=== PATIENT | female | born 1960 | race Caucasian/White ===

== ENCOUNTER 2023-05-24 10:00 | Outpatient (OUT) | payer BC, SELFPAY ==
--- NOTE | 2023-05-24 10:08 | ECG_ITS ---
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
--- NOTE | 2023-05-24 10:51 | PM.PRESUREVA ---
History of Present Illness History of Present Illness Chief complaint: PAT visit Narrative: Patient presents for preadmission testing. The patient reports a bunion with right foot pain that started years ago. 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 The patient states she has worn orthotic, anti-inflammatory medications, and modified shoes with no relief in her pain. She does use Voltaren gel occasionally which seems to help. She denies numbness, tingling, weakness, or any other complaints. Review of Systems ROS Narrative REVIEW OF SYSTEMS: Negative except as stated in HPI, ten or more systems reviewed. Constitutional: No fever , chills, weakness ENT: No sore throat or epistaxis Cardiovascular: No edema, chest pain, palpitations, or activity intolerance Respiratory: No shortness of breath, cough, or wheezing Gastrointestinal: No abdominal pain, constipation, diarrhea, or vomiting Genitourinary: No dysuria or hematuria Neurological: No numbness, tingling, weakness, or headache Psychiatric: No mood changes PFSH PFSH Medical History (Updated 05/24/23 @ 10:28 by Ashley Ocasio NP) Surgical History (Updated 05/24/23 @ 10:28 by Ashley Ocasio NP) Family History (Updated 05/24/23 @ 10:28 by Ashley Ocasio NP) Other Family history of breast cancer Family history of colon cancer Family history of hypertension Family history of liver cancer Family history of lung cancer Family history of uterine cancer Social History (Updated 05/24/23 @ 10:24 by Ashley Ocasio NP) Within the past year, how often did you have a drink containing alcohol: never Score interpretation: A score less than 3 is consistent with normal alcohol consumption. Smoking status: Never smoker Non-prescribed substance use: denies use Highest level of school completed/degree received: Associate degree: occupational, technical, vocational program Meds Home Medications and Allergies Home Medications Medication Instructions Recorded Confirmed Type atorvastatin 10 mg tablet 10 mg PO QDAY 05/24/23 05/24/23 History biotin 10,000 mcg capsule mcg PO 05/24/23 History calcium carbonate 600 mg-vitamin 1 tab PO DAILY 05/24/23 05/24/23 History D3 5 mcg (200 unit) tablet (Calcium 600 + D(3)) fluoxetine 20 mg capsule 20 mg PO QDAY 05/24/23 05/24/23 History multivitamin (Daily Multi-Vitamin 1 tab PO DAILY 05/24/23 05/24/23 History tablet) omega-3 fatty acids 1,000 mg 1,000 mg PO DAILY 05/24/23 05/24/23 History capsule omeprazole 40 mg capsule,delayed 40 mg PO QDAY 05/24/23 05/24/23 History release propranolol 60 mg capsule,24 60 mg PO Q24H 05/24/23 05/24/23 History hr,extended release ropinirole 0.5 mg tablet 0.5 mg PO QDAY 05/24/23 05/24/23 History tramadol 50 mg tablet 50 mg PO Q12H PRN pain 05/24/23 05/24/23 History vitamin B complex (B 1 tab PO DAILY 05/24/23 05/24/23 History Complex-Vitamin B12 tablet) Allergies Allergy/AdvReac Type Severity Reaction Status Date / Time No Known Drug Allergies Allergy Verified 05/24/23 10:18 Exam Narrative Exam Narrative: Constitutional: Awake, alert, comfortable, well-appearing, nontoxic, interactive, vital signs as charted Head: Normocephalic, atraumatic Neck: Supple, normal appearance, normal range of motion, no meningeal signs, no lymphadenopathy Respiratory: No respiratory distress, breath sounds clear Cardiovascular: Regular rate and rhythm, strong and regular heart tones Musculoskeletal: Right foot: Tenderness over the 1st MPJ, limited range of motion, good capillary refill, sensation intact Skin: No rashes or induration, no lesions, only visible skin inspected Neuro: No neurological deficits, normal sensation Psychiatric: Oriented ?3, normal affect Assessment and Plan Assessment and Plan (1) Hallux rigidus: Plan Right 1st metatarsophalangeal joint fusion with bone graft as needed scheduled with Dr. Nixon 06/06/2023.
[2023-05-24 11:06] LABS: Basophils Percent Auto 0.7 % (0.2-2.0); Eosinophils Absolute Auto 0.2 10^3/uL (0.0-0.7); Eosinophils Percent Auto 3.7 % (0.9-7.0); Hematocrit 39.2 % (36.0-48.0); Hemoglobin 12.6 g/dL (12.0-16.0); Immature Granulocytes Abs Auto 0.01 10^3/uL (0.00-0.03); Immature Granulocytes Pct Auto 0.2 % (0.0-0.5); Lymphocytes Absolute Auto 0.9 10^3/uL (1.2-3.8); Lymphocytes Percent Auto 15.2 % (20.5-60.0); Mean Corpuscular HGB Conc 32.1 g/dL (29.9-35.2); Mean Corpuscular Hemoglobin 29.7 pg (26.7-34.0); Mean Corpuscular Volume 92.5 fL (81.0-99.0); Mean Platelet Volume 10.5 fL (9.5-13.5); Monocytes Absolute Auto 0.6 10^3/uL (0.3-0.8); Monocytes Percent Auto 10.6 % (1.7-12.0); Neutrophils Percent Auto 69.6 % (43.0-75.0); Platelet Count 167 10^3/uL (150-450); Red Blood Count 4.24 10^6/uL (4.20-5.40); Red Cell Distribution Width 13.4 % (11.0-15.0); White Blood Count 5.7 10^3/uL (4.0-11.0)
[2023-05-24 11:51] LABS: Anion Gap 10.3; BUN Creatinine Ratio 22.2; Calcium 9.2 mg/dL (8.5-10.1); Carbon Dioxide 31.5 mmol/L (21.0-32.0); Chloride 105 mmol/L (98-107); Estimated GFR (African America >60 (>=60); Estimated GFR (Non-African Ame >60 (>=60); Glucose 95 mg/dL (74-106); Potassium 3.8 mmol/L (3.5-5.1); Sodium 143 mmol/L (136-145)
== END 2023-05-24 10:01 | disposition home or self-care (01) ==
LOC: PST 10:04
PROVIDERS: Podiatrist Foot & Ankle Surgery
DX: Z01.810 Encounter for preprocedural cardiovascular examination (principal); Z01.812 Encounter for preprocedural laboratory examination; M20.21 Hallux rigidus, right foot; I10 Essential (primary) hypertension
CPT/HCPCS: 36415; 80048; 85025; 93005; G0463

== ENCOUNTER 2023-06-06 06:17 | Day surgery (SDC) | payer BC, SELFPAY ==
[2023-05-24 10:40] VITALS: BP 109/61; PULSE 67; RESP 14; TEMP 36.4; O2SAT 99; BMI 22.3
[2023-06-06] VITALS (15 sets, daily range): BP systolic 106–131; BP diastolic 52–76; PULSE 56–80; RESP 13–21; TEMP 36.6–36.8; O2SAT 100; BMI 22.0
[2023-06-06 06:29] LABS: Basophils Percent Auto 0.7 % (0.2-2.0); Eosinophils Absolute Auto 0.3 10^3/uL (0.0-0.7); Eosinophils Percent Auto 4.9 % (0.9-7.0); Hematocrit 39.4 % (36.0-48.0); Hemoglobin 12.9 g/dL (12.0-16.0); Immature Granulocytes Abs Auto 0.02 10^3/uL (0.00-0.03); Immature Granulocytes Pct Auto 0.3 % (0.0-0.5); Lymphocytes Absolute Auto 1.1 10^3/uL (1.2-3.8); Lymphocytes Percent Auto 18.8 % (20.5-60.0); Mean Corpuscular HGB Conc 32.7 g/dL (29.9-35.2); Mean Corpuscular Hemoglobin 29.7 pg (26.7-34.0); Mean Corpuscular Volume 90.6 fL (81.0-99.0); Monocytes Absolute Auto 0.6 10^3/uL (0.3-0.8); Monocytes Percent Auto 9.8 % (1.7-12.0); Neutrophils Absolute Auto 3.9 10^3/uL (1.4-6.5); Neutrophils Percent Auto 65.5 % (43.0-75.0); Platelet Count 193 10^3/uL (150-450); Red Blood Count 4.35 10^6/uL (4.20-5.40); Red Cell Distribution Width 13.3 % (11.0-15.0); White Blood Count 5.9 10^3/uL (4.0-11.0)
[2023-06-06 07:06] LABS: Glucometer 99 mg/dL (74-106)
[2023-06-06] MEDS: LACTATED RINGER'S SOLUTION 1,000 ML 50 ML IV (07:08)
[2023-06-06] MEDS: CEFAZOLIN SODIUM/DEXTROSE,ISO 2 GM/50 ML PIGGYBACK IV (07:53)
[2023-06-06] MEDS: THROMBI-GEL SIZE 40 HEMOSTAT 1 EACH TOPICAL (08:51)
--- NOTE | 2023-06-06 09:40 | XR_ITS ---
The [address] [address] Patient Name: JAGDISH SCALES MRN: [id number] date: 1960 Sex: F Assigned Patient Location: [facility] Current Patient Location: [facility] Accession/Order Number: [id number] Exam Date: 06/06/2023 07:45 Report Date: 06/06/2023 11:08 At the request of: ANASTASIA BERMUDEZ Procedure: XR foot RT 2V PROCEDURE: XR foot RT 2V DATE: 06/06/2023 6:45 AM CDT COMPARISONS: 01/02/2023 CLINICAL INDICATION: Intra op imaging for right 1st MPJ fusion FINDINGS: 14 images are obtained during surgery. 1 minute 45 seconds fluoroscopy time. There is placement of a dorsal fixation plate across the first metatarsal phalangeal joint space, fixed by screws. There is also an oblique pin across the first metatarsal phalangeal joint space.. It appears osseous structures are held in good position and alignment is fixation. XR/XR foot RT 2V IMPRESSION: Intraoperative radiographs as discussed above. Electronically authenticated by: ISIAH HERNANDEZ Date: 06/06/2023 11:08
--- NOTE | 2023-06-06 09:41 | XR_ITS ---
The [address] [address] Patient Name: JAGDISH SCALES MRN: [id number] date: 1960 Sex: F Assigned Patient [facility]: [facility] Current Patient Location: [facility] Accession/Order Number: [id number] Exam Date: 06/06/2023 10:10 Report Date: 06/06/2023 13:54 At the request of: LEONARDO TAPIA Procedure: XR foot RT min 3V XR foot RT min 3V, 06/06/2023 10:10 AM EDT, OH001 INDICATION: postop xr PACU COMPARISON: Intraoperative images obtained earlier on the same day. TECHNIQUE: 3 images are submitted. FINDINGS: There is a plaster splint in place along plantar aspect of the foot. Evidence of internal plate and screw fixation across the first metatarsophalangeal joint is again noted. The components appear intact and unchanged in position. The bones appear well mineralized. No acute fracture or subluxation is identified. The joint spaces are maintained. No destructive osseous process is identified. The visualized soft tissues appear unremarkable. XR/XR foot RT min 3V IMPRESSION: Status post internal fixation across the first metatarsophalangeal joint. Electronically authenticated by: SHERLEY ZIMMER Date: 06/06/2023 13:54
--- NOTE | 2023-06-06 10:02 | PM.ORONB ---
Brief Operative Note Date of procedure: 06/06/23 Pre-op diagnosis: right hallux rigidus Post-op diagnosis: same as pre-op Procedure: PROCEDURE(S) PERFORMED: 1. First metarsal phalangeal joint fusion 2. [place] of distal tibial bone graft 3. Application of short leg splint 4. 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 Full-thickness cartilage loss greater than fifty percent on the 1st metatarsal head and full-thickness cartilage loss on the proximal phalanx of approximately thirty percent. Periarticular osteophytes were also noted. Bone quality was somewhat soft consistent with osteopenia. PROCEDURE IN DETAIL: Patient was identified in pre op and consent was reviewed. Correct side and site were identified and marked. Pre-op antibiotics were started. Patient was brought to OR suite and place on table in a supine position. General anesthesia was administered. A tourniquet was applied. Operative extremity was prepped and draped in usual sterile fashion. Formal time-out was performed and the foot/ankle were exsanguinated and tourniquet inflated. Incision created over dorsal aspect of the 1st MPJ. Bleeders coagulated. EHL protected throughout the procedure. Capsulotomy performed and McGlammry elevator inserted into 1st MPJ. Guide Pin place in 1st metatarsal head. Conical reamers used on 1st metatarsal head to remove cartilage and subchondral bone. Guide pin removed. Conical reamers used on proximal phalanx in a similar manner. 2.0 mm drill used to on each side of the joint. The site was irrigated. Distal Tibial Bone Graft: A 2 cm incision was created 2 cm proximal to the ankle joint and just medial to the tibialis anterior tendon. Combination sharp blunt dissection gained access to the distal tibial metaphysis and the periosteum was reflected carefully. An 8 mm bone harvester was drilled into the distal tibial metaphysis and 3cc of cancellus autograft was obtained. Gelfoam was then packed into the harvest site and deep closure with absorbable suture was performed followed by closure with skin suture. the 3cc of autograft obtained was mixed with 1cc of Sparc allograft Bone graft was then packed into the fusion site. A stab incision was placed on the medial aspect of the hallux and blunt dissection down to the proximal phalanx base was performed. A guide wire was then used to pin the MPJ in a rectus position under fluoroscopic guidance. Position was checked both on the table and under fluoroscopy. A saw was used to contour the dorsal aspect of the 1st metatarsal and proximal phalanx to accommodate plate fixation. A 3.[address] was [address] over the fusion site and temporarily fixed. Then ship pilot holes were drilled for locking 3.5 mm screws which were measured and placed according to the manufactor's standard directions. Again position was checked under fluoroscopy as well as on the table. Temporary fixation was removed and additional screws were placed. A 3.5 mm cannulated headed screw was inserted over the previously placed guide wire accordingly. Again position of the great toe and hardware placement were checked on the table and under fluoroscopy. The surgical site was irrigated with copious amounts of sterile saline. The incision was then closed in layers. The tourniquet was deflated and a prompt hyperemic response was noted. A dry sterile dressing consisting of Xeroform on the incisions followed by 4 x 4 gauze, ABDs, and Kerlix were applied. Multiple layers of cast padding were then applied to ensure all bony prominences were well-padded. A plaster posterior splint was then applied which was held in place by Triston wraps. Capillary refill time to all digits was evaluated and had appropriate response. POSTOPERATIVE PLAN: Discharge home under family's care Post op instructions provided verbally and written prescription(s) were placed in chart NWB operative foot/ankle x1 wk Follow-up in 1 week Implants: Medline plate/screws Anesthesia: GETA and regional Surgeon: Jose Nixon Cyber Security Manager: Dar Sorenson Estimated blood loss (mL): 10 Pathology: none sent Condition: stable Disposition: PACU Preoperative Details Reason for procedure: patient is a 63-year-old female who presents my office relating to worsening pain and dysfunction associated with her right great toe. Clinically she had palpable osteophytes and reduced range of motion and x-rays demonstrated end-stage arthritis of the 1st metatarsal phalangeal joint. I recommended 1st metatarsophalangeal joint fusion with bone graft as needed. I discussed all potential risks and benefits and all questions were answered to satisfaction. Patient wished to proceed with surgical intervention
[2023-06-06 10:18] LABS: Glucometer 93 mg/dL (74-106)
== END 2023-06-06 10:52 | disposition home or self-care (01) ==
PROVIDERS: Anesthesiology; Visit Provider Podiatrist Foot & Ankle Surgery
PROC: (CPT 20900; principal; 2023-06-06 07:45)
DX: M20.21 Hallux rigidus, right foot (principal); I10 Essential (primary) hypertension; D64.9 Anemia, unspecified; E78.00 Pure hypercholesterolemia, unspecified; K21.9 Gastro-esophageal reflux disease without esophagitis
CPT/HCPCS: 20900; 28750; 36415; 64445; 73620; 73630; 76000; 76942; 82948; 85025; C1713; J2704

== ENCOUNTER 2023-06-27 15:43 | Outpatient (OUT) | payer BC, SELFPAY ==
--- NOTE | 2023-06-27 | XR_ITS ---
The [place] [id number] Patient Name: JAGDISH SCALES MRN: [id number] date: 1960 Sex: F Assigned Patient Location: [facility] Current Patient Location: [facility] Accession/Order Number: [id number] Exam Date: 06/27/2023 15:10 Report Date: 06/27/2023 16:10 At the request of: ANASTASIA BERMUDEZ Procedure: XR foot RT min 3V STUDY: XR foot RT min 3V, [id number] HISTORY: RIGHT FOOT PAIN COMPARISON: Right foot x-rays of 06/06/2023 and 01/02/2023. FINDINGS/IMPRESSION: Status post first metatarsophalangeal joint arthrodesis. The fusion hardware is intact. Several osseous fragments surrounding the first metatarsophalangeal joint which appear new compared with 01/02/2023. No acute fracture or dislocation. Minimal Achilles insertional enthesopathy. Electronically authenticated by: DEANA MARTIN Date: 06/27/2023 16:10
== END 2023-06-27 15:44 | disposition home or self-care (01) ==
LOC: RAD 15:43
PROVIDERS: Visit Provider Podiatrist Foot & Ankle Surgery
DX: M20.21 Hallux rigidus, right foot (principal); Z98.1 Arthrodesis status; M76.61 Achilles tendinitis, right leg; R00.1 Bradycardia, unspecified
CPT/HCPCS: 73630

== ENCOUNTER 2023-07-18 14:51 | Outpatient (OUT) | payer BC, SELFPAY ==
--- NOTE | 2023-07-18 | XR_ITS ---
The [address] [address] Patient Name: JAGDISH SCALES MRN: [id number] date: 1960 Sex: F Assigned Patient Location: [facility] Current Patient Location: [facility] Accession/Order Number: [id number] Exam Date: 07/18/2023 15:00 Report Date: 07/18/2023 15:37 At the request of: BROOK TERRY Procedure: XR foot RT min 3V XR foot RT min 3V, 07/18/2023 3:00 PM EDT, OH001 INDICATION: FOOT PAIN (RIGHT) COMPARISON: Radiographs from 06/19/2023. TECHNIQUE: 3 images are submitted. FINDINGS: Evidence internal fixation across the first metatarsal phalangeal joint is again noted. The components appear intact and unchanged in position. The bones appear well mineralized. No acute fracture or subluxation is identified. The joint spaces are maintained. No destructive osseous process is identified. The visualized soft tissues appear unremarkable. XR/XR foot RT min 3V IMPRESSION: Stable status post fusion across the first metatarsophalangeal joint. No acute fracture or component failure is seen. Electronically authenticated by: SHERLEY ZIMMER Date: 07/18/2023 15:37
== END 2023-07-18 14:52 | disposition home or self-care (01) ==
LOC: RAD 14:52
PROVIDERS: Visit Provider Physician Assistant
DX: M20.21 Hallux rigidus, right foot (principal); Z96.9 Presence of functional implant, unspecified
CPT/HCPCS: 73630

== ENCOUNTER 2023-08-28 14:40 | Outpatient (OUT) | payer BC, SELFPAY ==
--- NOTE | 2023-08-28 | XR_ITS ---
The [address] [address] Patient Name: JAGDISH SCALES MRN: [id number] date: 1960 Sex: F Assigned Patient Location: [facility] Current Patient Location: [facility] Accession/Order Number: [id number] Exam Date: 08/28/2023 16:03 Report Date: 08/28/2023 20:50 At the request of: ANASTASIA BERMUDEZ Procedure: XR foot RT min 3V EXAM: XR foot RT min 3V HISTORY: RIGHT FOOT PAIN COMPARISON: 07/18/2023 TECHNIQUE: 3 views of the right foot were obtained FINDINGS: Again seen is evidence of prior surgery with a fusion procedure at the first metatarsophalangeal joint. A dorsal plate and multiple screws are in place. There is narrowing of the joint space, which remains visible. There is no evidence of an acute fracture or dislocation. The joint space are otherwise intact throughout the foot. A small osteophyte arises from the insertion site of the Achilles tendon. XR/XR foot RT min 3V IMPRESSION: Postsurgical changes in place with a fusion procedure at the first metatarsophalangeal joint. Hardware remains in place and is unchanged. There is been no significant progression of the osseous fusion since the prior study. There is no evidence of an acute fracture or dislocation. The overall appearance is unchanged. Electronically authenticated by: ANASTASIA LOERA Date: 08/28/2023 20:50
== END 2023-08-28 14:41 | disposition home or self-care (01) ==
LOC: RAD 14:40
PROVIDERS: Visit Provider Podiatrist Foot & Ankle Surgery
DX: M20.21 Hallux rigidus, right foot (principal)
CPT/HCPCS: 73630

== ENCOUNTER 2023-09-17 14:53 | Outpatient (OUT) | payer BC, SELFPAY ==
--- NOTE | 2023-09-17 | XR_ITS ---
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 There is a lucent defect of the distal metadiaphyseal region of the tibia involving an area measuring approximately 1 cm in caliber. This was also seen on foot radiographs of 06/06/2023. Its appears to be postsurgical. It does not have an acute appearance and is likely of no clinical significance. The ankle mortise is intact. XR/XR ankle RT min 3V IMPRESSION: Right ankle radiographs show no evidence of acute or significant abnormalities. Electronically authenticated by: ISIAH HERNANDEZ Date: 09/18/2023 09:07
--- NOTE | 2023-09-17 | XR_ITS ---
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 Fusion hardware is again identified first metatarsal phalangeal joint. The hardware appears intact. The osseous structures remain in good alignment and stable alignment. Mild midfoot tarsal metatarsal degenerative changes are identified, stable. XR/XR foot RT min 3V IMPRESSION: Right foot radiographs show no evidence of acute abnormalities. Stable postop changes. Electronically authenticated by: ISIAH HERNANDEZ Date: 09/18/2023 09:05
== END 2023-09-17 14:54 | disposition home or self-care (01) ==
LOC: RAD 14:53
PROVIDERS: Visit Provider Podiatrist Foot & Ankle Surgery
DX: M20.21 Hallux rigidus, right foot (principal); M25.571 Pain in right ankle and joints of right foot
CPT/HCPCS: 73610; 73630

== ENCOUNTER 2023-10-23 13:10 | Outpatient (OUT) | payer BC, SELFPAY ==
--- NOTE | 2023-10-23 | XR_ITS ---
The [address] [address] Patient Name: JAGDISH SCALES MRN: [id number] date: 1960 Sex: F Assigned Patient Location: [facility] Current Patient Location: [facility] Accession/Order Number: [id number] Exam Date: 10/23/2023 13:11 Report Date: 10/23/2023 13:47 At the request of: ANASTASIA BERMUDEZ Procedure: XR foot RT min 3V PROCEDURE: XR foot RT min 3V COMPARISON: 09/17/2023 HISTORY: RIGHT FOOT PAIN FINDINGS: BONES:Stable dorsal fusion first metatarsal-phalangeal joint with a plate and screws. No acute fracture, dislocation or mechanical failure. SOFT TISSUES:Negative. No visible soft tissue swelling. EFFUSION:None visible. OTHER: Negative. XR/XR foot RT min 3V IMPRESSION: Stable first metatarsal-phalangeal joint fusion Electronically authenticated by: NISHA VANESSA Date: 10/23/2023 13:47
--- OUTSIDE RECORDS SUMMARY | 2023-10-23 13:13 | XMS_ITS | CCD ---
Author Name Unknown Address [address] [place] [address] [facility] Care Team Providers Care Music Librarian Name Role Phone Giovanni Mejia Unavailable Lina Bustillo Unavailable Roberto, Giovanni Unavailable Nathaniel Azevedo Unavailable Roberto, DO Giovanni Martinez Primary Care Provider [phone] Roberto, DO Giovanni N Attending Provider Roberto, DO Giovanni N Primary Care Provider MD Ramirez Bassett Attending Provider ANASTASIA BERMUDEZ Admitting Unavailable ANASTASIA BERMUDEZ Attending Unavailable ANASTASIA BERMUDEZ Admitting Unavailable ANASTASIA BERMUDEZ Attending Unavailable ANASTASIA BERMUDEZ Admitting Unavailable SASSER, DR NISHA Keane Consulting Unavailable ANASTASIA BERMUDEZ Attending Unavailable ANASTASIA BERMUDEZ Consulting Unavailable Roberto, DO Giovanni N Primary Care Provider [phone] Roberto, DO Giovanni N Attending Provider Roberto, DO Giovanni N Primary Care Provider [phone] Roberto, DO Giovanni N Attending Provider Roberto, Giovanni N Admitting Unavailable Roberto, Giovanni N Attending Unavailable Roberto, Giovanni N Primary Care Unavailable Roberto, Giovanni N Admitting Unavailable Roberto, Giovanni N Attending Unavailable Roberto, Giovanni N Primary Care Unavailable Ramirez Bassett Attending Unavailable Ramirez Bassett Admitting Unavailable Maryan Rivera Admitting Unavailable Maryan Rivera Attending Unavailable Giovanni Mejia Primary Care Unavailable Allergies Allergy Classification Reported Allergen(s) Allergy Type Date of Onset Reaction(s) Facility (1 source) No Known Medication Allergies; Translations: [No Known Medication Allergies] Propensity to adverse reactions to drug (disorder) [facility] Repository Medications Current Medications Medication Drug Class(es) Dates Sig (Normalized) Sig (Original) aluminum chloride 200 mg/ml topical solution (20 sources) Drysol 20 % 1 application Externally weekly for 90 day(s) Active Drysol 20 % 1 ap plication Externally weekly for 90 day(s) Active atorvastatin 10 mg oral tablet (20 sources) HMG-CoA Reductase Inhibitor Start: 07-11-2020 take 1 tablet by mouth once daily in the morning Atorvastatin (Lipitor) 10 mg tablet Active 10 MG PO Every morning July 10, 2020 11:00pm biotin 10 mg oral capsule (4 sources) Start: 07-11-2020 take 60805 ug by mouth twice daily Biotin Active 58836 MCG PO Twice daily July 10, 2020 11:00pm cholecalciferol 0.05 mg oral tablet (4 sources) Vitamin D Start: 07-11-2020 take 1 tablet by mouth once daily Cholecalciferol (Vitamin D3) (Vitamin D3) 50 mcg (2,000 unit) Tablet Active 50 MCG PO Daily July 10, 2020 11:00pm FLUoxetine 20 mg oral capsule (20 sources) Serotonin Reuptake Inhibitor Start: 07-11-2020 take 20 mg by mouth once daily in the morning Fluoxetine Active 20 MG PO Every morning July 10, 2020 11:00pm take 1 capsule by mouth once guillermo ly FLUoxetine HCl 20 MG take 1 capsule by mouth once daily for 90 Active Multivitamin preparation (4 sources) Start: 07-11-2020 take 1 tablet by mouth once daily Multivitamin Active 1 TAB PO Daily July 10, 2020 11:00pm Start: 07-11-2020 take 1 tablet by kurt th once daily Multivitamin Active 1 TAB PO Daily July 11, 2020 12:00am nitrofurantoin, macrocrystals 25 mg / nitrofurantoin, monohydrate 75 mg oral capsule (2 sources) Nitrofuran Antibacterial Start: 09-12-2023 take 1 capsule by mouth every twelve hours Nitrofurantoin Monohyd Macro 100 MG 1 capsule with food Orally every 12 hrs for 5 days 14 Aug, 2023 Active omeprazole 40 mg delayed release oral capsule (20 sources) Proton Pump Inhibitor Start: 07-11-2020 take 40 mg by mouth once daily Omeprazole Active 40 MG PO Daily July 10, 2020 11:00pm 24 hr propranolol hydrochloride 60 mg extended release oral capsule (20 sources) beta-Adrenergic Thierno Start: 07-11-2020 take 60 mg by mouth at bedtime Propranolol Active 60 MG PO Bedtime July 10, 2020 11:00pm rOPINIRole 1 mg oral tablet (20 sources) Nonergot Dopamine Agonist Start: 07-11-2020 take 1 mg by mouth once daily at bedtime Ropinirole Active 1 MG PO Daily at bedtime July 10, 2020 11:00pm take 1 tablet by mouth once wilton y rOPINIRole HCl 0.5 MG take 1 tablet by mouth once daily for 90 Active sulfamethoxazole 800 mg / trimethoprim 160 mg oral tablet (1 source) Dihydrofolate Reductase Inhibitor Antibacterial, Sulfonamide Antimicrobial Start: 09-16-2023 take 1 tablet by mouth every twelve hours Sulfamethoxazole-Trimethoprim 800-160 MG 1 tablet Orally Twice a day for 5 days Aug, Active traMADol hydrochloride 50 mg oral tablet (20 sources) Opioid Agonist Start: 11-06-2022 take 1 tablet by mouth once daily as needed traMADol HCl 50 MG 1 tablet as needed for migraines Oral Once a day PRN migraines for 15 day(s) PRN Jun, Active Start: 05-24-2022 take 1 tablet by kurt th once daily as needed traMADol HCl 50 MG 1 tablet as needed for migraines Oral Once a day PRN migraines for 15 day(s) PRN Apr, Active Start: 08-04-2021 take 1 tablet by kurt th once daily as needed traMADol HCl 50 MG 1 tablet as needed for migraines Oral Once a day PRN migraines for 15 day(s) PRN Jul, Active Start: 07-11-2020 End: 07-18-2020 take 50 mg by mouth once daily Tramadol Discontinued 5 0 MG PO Daily July 10, 2020 11:00pm July 18, 2020 7:06am Completed/Discontinued Medications Medication Drug Class(es) Dates Sig (Normalized) Sig (Original) cephalexin 500 mg oral capsule (4 sources) Cephalosporin Antibacterial Start: 07-18-2020 End: 12-31-2022 take 1 capsule by mouth every eight hours Cephalexin (Keflex) 500 mg capsule Discontinued 500 MG PO Q8H 15 July 17, 2020 11:00pm December 31, 2022 7:15am diclofenac sodium 20 mg/ml topical solution (20 sources) Nonsteroidal Anti-inflammatory Drug Start: 09-01-2021 Pennsaid 2 % 2 pumps Externally Twice a day for 30 day(s) Aug, Not-Taking Start: 09-01-2021 Pennsaid 2 % p ea-sized amount Externally Twice a day Aug, Active Magnesium (4 sources) Start: 07-11-2020 End: 12-31-2022 take 250 mg by mouth once daily Magnesium Discontinued 250 MG PO Daily July 10, 2020 11:00pm December 31, 2022 7:16am Start: 07-11-2020 End: 12-31-2022 take 250 mg by mouth once daily Magnesium Discontinued 250 MG PO Daily July 11, 2020 12:00am December 31, 2022 8:16am Start: 07-11-2020 take 250 mg by mouth once daily Magnesium Active 250 MG PO Daily July 11, 2020 12:00am oxyCODONE hydrochloride 5 mg oral capsule (4 sources) Opioid Agonist Start: 07-18-2020 End: 12-31-2022 take 5-10 mg by mouth every six hours Oxycodone Discontinued 5 - 10 MG PO Q6H 40 8 July 18, 2020 December 31, 2022 7:16am triamcinolone acetonide 40 mg/ml injectable suspension (20 sources) Corticosteroid Start: 02-21-2022 Kenalog-40 Apr, 20 mg Start: 11-29-2020 Kenalog -40 mg Nov, 40 mg Problems Problem Classification Problem Date Documented Da te Episodic/Chronic Anxiety disorders (20 sources) Anxiety; Translations: [Anxiety disorder, unspecified] Chronic Disorders of lipid metabolism (20 sources) Mixed hyperlipidemia; Translations: [Mixed hyperlipidemia] Onset: 09-01-2021 Resolved: 09-01-2021 Chronic Gastroduodenal ulcer (except hemorrhage) (20 sources) Ulcer of duodenum; Translations: [Duodenal ulcer, unspecified as acute or chronic, without hemorrhage or perforation] Onset: 09-01-2021 Resolved: 12-03-2021 Chronic Gastrointestinal hemorrhage (20 sources) Chronic duodenal ulcer with hemorrhage; Translations: [Chronic or unspecified duodenal ulcer with hemorrhage] Chronic Genitourinary symptoms and ill-defined conditions (4 sources) Dysuria; Translations: [Other symptoms and signs involving the genitourinary system] Onset: 09-12-2023 Episodic Headache; including migraine (20 sources) Migraine without aura, not refractory ; Translations: [Migraine without aura, not intractable, without status migrainosus] Onset: 08-03-2021 Resolved: 05-24-2022 Chronic Osteoarthritis (20 sources) Primary osteoarthritis, unspecified ankle and foot; Translations: [Osteoarthrosis of the carpometacarpal joint of the thumb] Onset: 09-01-2021 Resolved: 03-30-2022 Chronic Other aftercare (5 sources) Encounter for therapeutic drug level monitoring; Translations: [Encounter for therapeutic drug level monitoring] Onset: 09-01-2021 Resolved: 09-01-2021 Episodic Other connective tissue disease (4 sources) Trigger finger, right ring finger Onset: 02-21-2022 Resolved: 03-30-2022 Episodic Other connective tissue disease (4 sources) Trigger finger, left middle finger Onset: 02-21-2022 Resolved: 03-30-2022 Episodic Other connective tissue disease (1 source) Other specified disorders of muscle Episodic Other connective tissue disease (4 sources) Pain in right foot; Translations: [PAIN IN RIGHT FOOT] Onset: 01-02-2023 Episodic Other hereditary and degenerative nervous system conditions (20 sources) Restless legs; Translations: [Restless legs syndrome] Chronic Other hereditary and degenerative nervous system conditions (5 sources) Restless legs syndrome Onset: 10-16-2021 Resolved: 04-05-2022 Chronic Other nervous system disorders (20 sources) Carpal tunnel syndrome of right wrist; Translations: [Carpal tunnel syndrome, right upper limb] Chronic Other nervous system disorders (20 sources) Carpal tunnel syndrome; Translations: [Carpal tunnel syndrome, left upper limb] 11-04-2020 Chronic Other nervous system disorders (4 sources) Carpal tunnel syndrome, left upper limb Onset: 02-21-2022 Resolved: 03-30-2022 Chronic Other nervous system disorders (1 source) Lesion of sciatic nerve, right lower limb Chronic Sprains and strains (1 source) Sprain of other ligament of left ankle, initial encounter Episodic Unclassified (1 source) Encounter for screening for malignant neoplasm of colon; Translations: [Encounter for screening for malignant neoplasm of colon] Onset: 12-31-2022 Results Test Name Value Interpretation Reference Range Facility Coding Summaryon 10-07-2023 Coding Summary HTMLBase 64 NudjqxfvQBx1zBb+PGhlY WQ+AJ1JYFRcG45usOGfjQ 4vP9GJXNrDPletYSDCJLf FRyLeavKmCM8luIGtTHEt IC8+DM8qAKLgKvighREoi 2I2iCX7E84yhx3zLNaizM V2IGHqHbPnnrulg7fodYz 6IDcuNmluOyBt ROPqoF41ZUX5sU03Jy42b IByuHZum9upzAb6JiHbHP VmHTZ3xKfnLLiqx9TpOQV vP96jkEAri1W8 TZLjoEbecEUbYyNjgHG8s G4xBHyyhnslh8humikvSb y1ou33yXTdp1A1dOM9K5A osvL8OGHplHTd BibuaFJEfC1iixape7jse dmeWuApTDKhBSm9PDi6HZ HwkInnHpJvCH54IBD9JRT mylYfQ6MzPSYl aCzxWdT3i6V0Ec1ZT8SGT ftuG1GWXXLKPBuxvUK+PC 30ql43G2JzTapeTep9HQI oWEQ5qRD7qH8c MRAqYGudv3J4uDU6B7Xjb cIiyw9dj7jnGOJiQRldV3 6wgUBfz6Y7VUDxxFG5OPQ niCxlAzVwjW92 Oyc+MYRonGhyw6UiEezwl 4flq1jkcBk3YsknWPRryq WtnGhzCFX7s5DnVy2xEYV vjYC0qHD9xE1k ZiVxFqU1YFjbS325CjIcu GQlOhbuI57uZ5EnmSC+PH DzDgx3CILviQxkWS9iX1W hZGRpbmctbGVm pXkkIJ6eZIChycbfDFVrx X4dPRByW2g1FpWgOzK7UG hlN9QcKWYufwjzTt73oC4 eMcIfNvZ8JNkd L3GamfQ5QXScwIEdSViwW PE5I86oo8N1WGIjJJYvVI I8hET5oR0jxWnrnzhkzGP mdDsgdmVydGlj KYntOLdqW861LBZzfSmuP kNvZGluZyBEYXRlOiAgMD EvMDgvMjAyNDwvdGQ+PHR lDAF2dXamTUZa pBIvOYsyYj9ocCnxhFpcI U5aFRQtiycfQMBbnI8uSS OdvMShoSvvHO8nKMYvthh ld191AyBcZEA9 FFZejFBdI3IaxV2qTrEwW IPjPGRzG3JorYSoIWldL3 12SEbpFhU9PJPaikTtI0K sLWFsaWduOiB0 u3K6Ok5Il4MoqxwfK2Dvg SQfJbMgXhzzOHh2Y3OuNz wvdHI+QL64IHQnIC24WVe 8JRL9cWksKGbh EHLnH4SmfI0eJmBcPZAvX GRkOyc+PHRhYmxlIHdpZH RoPScxMDAlJyBzdHlsZT0 xWc3rNSQlAWVk zLiukMKeQzSmv1gcPUTyJ AosJJ4akCsjJ5LraKK3LB Swn3g4Lt37H05eT3WlzAF +QACblUY6wCS0 pL9nZnKjOvJ4JHqkR031C vCqaUFmHbtdj1wzw9zjdQ s1SmR5HXOceeQpePakUHQ 0q5IyAl28U18m IHdpZHRoPSIxNSUiIHZhb Chcfx0yxI8gEw6+PGNvbC S6lUW5gL5pWoEtVzA5UZo lO909DzKlcFIk Xnblo2wqs3icxOh3PpXgT OAsfbUxoRsnMFC8s1HoPk 00T4FljGlzb8LhEnh7yo4 7lQHop5A2xIE1 D2PuPRQeyenbcBVdvUqeT C6mTYAgyziuTWYlbV9wRF FjB9w7FiTsYgD1SStmD9X xopA6OIWmrVZc FAEhsZUFpB2jevjkk1qlg lqfFiUzBXQsRVo2RRn8PF VbhKfkJcPhMAL0BeY8OEH 3iGDejJ2wrRfq dvjziW3lGop+XWI0uQQdz HYYPW3tSnqkmOK+PHRkIH Y6wVevMOemUUTcuX3mBGR pS9k8JwJjZwW1 AIezG6VpiiK5FWNotTDqY KYypUCDjS7krlyex0whrl psYbQzGXEwYQv0RAb2QBK saWduOiBsZWZ0 PxQ7HZN9rSBtlS9udLkbk byppS9nGtj+QmlydGggRG M6FOd6U8HvSqr8FIZwiHr eQR7ieUIbCClu Ro0jcAvxvIekBP5iRVGpk dsxk860LeAoz4scZEZpkL KaTRslOZL5P04wm6T3VPW pCYHjDPA1rXM7 tX6keJilcpwesETjwRhle pCakVwwIIgsNMgjQ307UP NaxAgxOyXkNNe1V1EoYpx 7ZSIchCtgTA3f ePFyYKmuHf7oqPwymMmsV P8rVVImaxwiw669JzPbn1 wvWLDeeZVeUMakZPG3M12 zx0T8UCFvSHQe JHY2sAH5iB0rkLsbuvrnv GVmdDsgdmVydGljYWwtYW bbI700RVYuoWybTlVnyOv 1M4UdVco9SNNd zRozKS2dlIAeFSweVh4xr AbolVgvCA4hOSDnduqxs3 49RyLrh9wqQLOyhUYiSOx eENR4B26ig9Q7 HCDeAOTuETH1pPG4yU3mv GlnbjogbGVmdDsgdmVydG ubFUdsXUiuJ782TQWsaWk nPlBhdGllbnQg SWfyIYu1X9OqEcdbxZL+P R11IRMpAJ81eYGycEHvt9 smpXv5OgUcHXFlOVN9xLk kAEtzd0GsJHYe W51fnRWja4T0HATzzNcpm KLzUoKpqMO1hU3rWGdesu zwn4rgqpabEuybi8atsk1 2gY10I84jKYrv ZHRoPSIzMCUiIHZhbGlnb k2ihH1bZq5+GJWqgWB0dK I1mH7qQNXtRzU0TIkqK14 9InRvcCIvPjxj f3chy0vlqKt4WpY6WOWsw cAzaKneRUA9d2SsZr73L3 9sIHdpZHRoPSIyMCUiIHZ foRumki4eaD1a Ii8+YKKgvTZ1mJG2wZ7oW eViNdX0CLfaE535DcIqiE NbYagjZ20lB3PnpEA+PHR pDyp7QVJsfTpa VV2dyKGeLCsgFv6yKTJ5K lNkCcXzPRcjM6DaZKGcff fijgjubVU8DMJxNEBuzN9 3Ng6gjRqgYECb bVVSeT2zyavfz3ftbttkW sXgABWfNQc3VKa9PPKmyL mlDyWoZFJ5LeM3URX1ePS kjK8xlIbgeouf kA1mE0RbENEhpaacWw47d T4cDqPnRgS9OHmbPsu+UE QDHX5TAMIBPUBBHN0HFTC UYfUZPM71HD71 uQCgr0P5jGZ8P6HsDBIsr mmohmbobJK9UAXzPDQblQ 64cTYaBZqaQi3ss2C0a34 5DHYvRKLpuZ10 Jm5vyGevFXSlmPMRdQ6it mrmg8suolumIgCnHKJdAE n5ANj2KGPgsZwvLnTuYTJ 2SqM8ALV0mIGf sW8uqFwpaomyeL9oJwz+M IrtFAWvGEk7UnbnrBJ+PH WoSFB7oKolEVorVHSypW7 qFOAnO4x9LoBt JeI2UQdyC2RhXGXfjxauH y67hJ1fJgOiNiB9OMzgO0 NnanM6PTTbnECtCSdsJLU 1O43te1R1XSMv CMOzELG4qMM0jL1etSgmi jogbGVmdDsgdmVydGljYW zdGLldJ759MVOhhHysUwA xJPmuIFEbKF42 HA82iZItf9R5xYP6L1BhJ BDtwmyctnfvnRQ3CZDsZV HecM52kCCpXMucLz7dh3D 9m049AARiGNHz tI06Sp0nuCsbUHIpjNTEz N7fgnfzx5zetmvcZeJyRV ObNOu2WVo7ITWriJhrDoQ sGVZ8ClA3ZJK5 uCPnmL7uiHtkfmuzjH9cX yc+XxWIYVcGDI31PA26hA Fnh3C0eDN5U7FmYOCplov ochgpzMG2HQUc LTZetK14rQWvSOecIs6sn 3U9z642FJPsKAEzqC61Fp 8ivDxlTQZwpRXMtC1hace cm4pfajafUySb DBScBSq3HDt2LUBvlXhqF tOzCCO0OhN6IJH4eTBntG 3jfAieydtktG0sRdu+UmV moPXayV7vHG31 jLUoxAacvvP2U5MgGhxlm HI+DC07QFNsWK81xFUgsJ Vtz9sgtBc3NeYvSTTtWCC 7vFsmRTdxt3Ui TTUqL99xvUSdb6I1HQSnm DcnnQMwUiTzwDC2dC5lKD igotppk0fszpikPxwdh4v bwd14wC73O16m IHdpZHRoPSIzMCUiIHZhb Uegoh1flR0dDw7+PGNvbC S8nCW4gF5sByOhNbP6CIe dX839JbEjiFNw Zkter4ltv1hnzEw9GqAeY CGdluSoeXyqYDO4d7LwVt 13K06fRYahIAKbPFRdQNH aJFFjhFivda0a nM7oZo7+HF0dw7oxir98y D48dHI+OQPhFUE4bJmaZP sePVOxnY0aLMtfZqC2MBN oXqRhgR45zARa UTjdSv4plRlmqQspNN4rO VSkljnfe317SlTis0seTS ByyCQrYGmcAYY6Z77ct9U 6LGDrNXOrPNS5 nDK2wA1wnVhxrissxTLkx DsgdmVydGljYWwtYWxpZ2 24JIWsyJncRuPrjAMaF7f fmvCNME6yFnvj dGQ+PBRxNCU0gCvfOSclR DKnkJ3xFNDzF5q7TbIjAo E6IOjzY4XkhsQ2PZOuzTI hLTUffALJqL5a dzirl3znarnwNcQtTPCuF Qe6YLr0HYNalBmxKiVmVX X4ZpO4IHC7hQHlcT0mwUf lvfljzY1rDfg+ RklOOjwvdGQ+BGXrJDW9o EskSCpxRVUojS6iKQToJ5 q3GjQwPqG6FVhnE6YwjjU 6IGJvbGQgMTBw hOINgJ7dhxnrc6iyiegpH dZcMWOeFFu5UIw5TFIbzO ywSvSrOBU9UhQ2PUG7tMR syQ2mqOiabegw sN9zKta+TVJOOjwvdGQ+P NGaAVQ1eCaqOFzqKLXheN 1mYHFyR8b7YvGjMpG2VXa sD6MvdnA1NAJo yLZhCLCfnZQPcA1rosvqz 2skdcqbLuOpCVIsDTs3WR z4LFTtnLffUpDeROO2UtP 4PZM7eFTolF3k jZmojydlqK3dGzp+UGF5Z HZ8IW53PQ14Q7HyLwpmdV FibGU+PHRhYmxlIHdpZHR oPScxMDAlJyBz dHl (more content not included)... [facility] Provider Orderson 09-19-2023 Provider Orders [id number] #[email or web address] [facility] Provider Orders [id number] #[email or web address] [facility] Urinalysis - AUTOMATEDon Appearance (U) cloudy [employer] Other Bilirubin Ql (U) Negative [employer] Other Color (U) yellow [employer] Other Glucose Ql (U) Negative [employer] Other Hemoglobin Ql (U) trace [employer] Other Ketones Ql (U) Negative [employer] Other Leukocyte esterase Test strip Ql (U) moderate [employer] Other Nitrite Ql (U) Negative [employer] Other pH (U) 6.0 [pH] [employer] Other Protein Ql (U) 100 mg/dl [employer] Other Specific gravity (U) [Rel density] 1.025 [employer] Other Urobilinogen (U) [Mass/Vol] 1.0 mg/dL [facility] [employer] Other Urinalysis - AUTOMATED No rt [employer] Other Urine Cultureon 09-12-2023 Bacteria identified Cx Nom (U) Reason for Exam Dysuria Urine ORGANISM: Klebsiella pneumoniae (O:KLEPNE) [place] Count >100,000 Aerobic MAHIN Charge (NMIC56) ---- SUSCEPTIBILITY --- ORGANISM: O:KLEPNE ANTIBIOTIC INTERPRETATION MAHIN Amikacin S <16 Amoxacillin/K Clavulanate S <8 Ampicillin/Sulbactam S <4 Aztreonam S <4 Cefazolin S <2 Cefepime S <2 Ceftazidime S <1 Ceftazidime/Avibactam S <4 Ceftolozane/Tazobacta m S <2 Ceftriaxone S <1 Cefuroxime S 8 Ciprofloxacin S <0.25 Ertapenem S <0.5 Gentamicin S <2 Levofloxacin S <0.5 Meropenem S <1 Meropenem/Vaborbactam S <2 Nitrofurantoin I 64 Piperacillin/Tazobact am S <8 Tetracycline S <4 Tigecycline S <2 Tobramycin S <2 Trimethoprim/Sulfamet hoxazole S <0.5 S = SUSCEPTIBLE I = INTERMEDIATE R = RESISTANT BLANK = DATA NOT AVAILABLE, OR DRUG NOT ADVISABLE OR TESTED R* = RESISTANCE DUE TO EXTENDED SPECTRUM BETA-LACTAMASES ESBL = EXTENDED SPECTRUM BETA-LACTAMASE TFG = THYMIDINE-DEPENDENT STRAIN JIAN = BETA-LACTAMASE POSITIVE IB = INDUCIBLE BETA-LACTAMASE. APPEARS IN PLACE OF 'S' WITH SPECIES KNOWN TO POSSESS INDUCIBLE BETA-LACTAMASES. POTENTIALLY THEY MAY BECOME RESISTANT TO ALL B-LACTAM DRUGS. PERFORMED BY: [place] [address] PATHOLOGIST WOOD REPATCHER MANISH SIDHU M.D. Normal Comment on above: Performed By: #### C UU #### [address] Alanine aminotransferase [En zymatic activity/volume] in Serum or PlasmaOrdered By: Giovanni Mejia on 07-19-2023 ALT [Catalytic activity/Vol] 22 U/L 7-52 Albumin [Mass/volume] in Ser um or Plasma by Bromocresol green (BCG) dye binding methoOrdered By: Giovanni Mejia on 07-19-2023 Albumin BCG dye [Mass/Vol] 4.1 g/dL 3.5-5.7 Alkaline phosphatase [Enzyma tic activity/volume] in Serum or PlasmaOrdered By: Giovanni Mejia on 07-19-2023 ALP [Catalytic activity/Vol] 192 U/L 34-104 Aspartate aminotransferase [ Enzymatic activity/volume] in Serum or PlasmaOrdered By: Giovanni Mejia on 07-19-2023 AST [Catalytic activity/Vol] 26 U/L 13-39 Basophils Auto (Bld) [#/Vol] Ordered By: Giovanni Mejia on 07-19-2023 Basophils (Bld) [#/Vol] 0.0 10*3/uL 0.0-0.2 Basophils/100 WBC Auto (Bld) Ordered By: Giovanni Mejia on 07-19-2023 Basophils/100 WBC (Bld) 0.7 % . F [facility] Bilirubin.total [Mass/volume ] in Serum or PlasmaOrdered By: Giovanni Mejia on 07-19-2023 Bilirubin [Mass/Vol] 0.7 mg/dL 0.3-1.0 [facility] Calcium [Mass/volume] in Ser um or PlasmaOrdered By: Giovanni Mejia on 07-19-2023 Calcium [Mass/Vol] 9.8 mg/dL 8.6-10.3 [facility] Carbon dioxide, total [Moles /volume] in Serum or PlasmaOrdered By: Giovanni Mejia on 07-19-2023 CO2 [Moles/Vol] 32.5 mmol/L 21.0-31.0 [facility] Chloride [Moles/volume] in S jeremy or PlasmaOrdered By: Giovanni Mejia on 07-19-2023 Chloride [Moles/Vol] 104 mmol/L 98-107 [facility] Cholesterol [Mass/volume] in Serum or PlasmaOrdered By: Giovanni Mejia on 07-19-2023 Cholesterol [Mass/Vol] 169 mg/dL 140-200 [facility] Comment on above: Chol less than 200 m g/dl low riskChol 201-239 mg/dl borderline riskChol 240 mg/dl and greater high risk Cholesterol in LDL Calc [Mas s/Vol]Ordered By: Giovanni Mejia on 07-19-2023 Cholesterol in LDL [Mass/Vol] 89 mg/dL 0-100 Comment on above: LDL ATP III CLASSIFI CATIONLDL less than 100 mg/dL OptimalLDL 100-129 mg/dL Near or above optimalLDL 130-159 mg/dL Borderline highLDL 160-189 mg/dL HighLDL greater than 189 mg/dL Very high Cholesterol in VLDL Calc [Ma ss/Vol]Ordered By: Giovanni Mejia on 07-19-2023 Cholesterol in VLDL [Mass/Vol] 21 mg/dL Complete Blood Count Auto Di ffon 07-19-2023 Basophils (Bld) [#/Vol] 0.0 10*3/uL Normal 0.0-0.2 Comment on above: Order Comment: Reaso n for Exam Mixed hyperlipidemia;Medication monitoring encounter Result Comment: PERF ORMED BY: [place] [address] PATHOLOGIST WOOD REPATCHER MANISH SIDHU M.D. Performed By: #### C MP, CBC, LIPID #### [facility] [address] [place] [address] [place] Basophils/100 WBC (Bld) 0.7 % Normal . F [facility] Comment on above: Order Comment: Reaso n for Exam Mixed hyperlipidemia;Medication monitoring encounter Performed By: #### C MP, CBC, LIPID #### [facility] [address] [place] [address] [place] Eosinophils (Bld) [#/Vol] 0.2 10*3/uL Normal 0.0-0.45 Comment on above: Order Comment: Reaso n for Exam Mixed hyperlipidemia;Medication monitoring encounter Performed By: #### C MP, CBC, LIPID #### [facility] [address] [place] [address] [place] Eosinophils/100 WBC (Bld) 3.9 % Normal . Comment on above: Order Comment: Reaso n for Exam Mixed hyperlipidemia;Medication monitoring encounter Performed By: #### C MP, CBC, LIPID #### [facility] [address] Erythrocyte distribution width (RBC) [Ratio] 13.8 % Normal 11.9-15.3 Comment on above: Order Comment: Reaso n for Exam Mixed hyperlipidemia;Medication monitoring encounter Performed By: #### C MP, CBC, LIPID #### [facility] [address] Hematocrit (Bld) [Volume fraction] 37.5 % Normal 34.0-46.4 Comment on above: Order Comment: Reaso n for Exam Mixed hyperlipidemia;Medication monitoring encounter Performed By: #### C MP, CBC, LIPID #### [address] Hemoglobin (Bld) [Mass/Vol] 12.6 g/dL Normal 11.8-15.4 Comment on above: Order Comment: Reaso n for Exam Mixed hyperlipidemia;Medication monitoring encounter Performed By: #### C MP, CBC, LIPID #### [address] Lymphocytes (Bld) [#/Vol] 1.3 10*3/uL Normal 1.00-4.8 Comment on above: Order Comment: Reaso n for Exam Mixed hyperlipidemia;Medication monitoring encounter Performed By: #### C MP, CBC, LIPID #### [facility] [address] [place] [address] [place] Lymphocytes/100 WBC (Bld) 23.5 % Normal . Comment on above: Order Comment: Reaso n for Exam Mixed hyperlipidemia;Medication monitoring encounter Performed By: #### C MP, CBC, LIPID #### [facility] [address] MCH (RBC) [Entitic mass] 29.8 pg Normal 24.7-34.3 Comment on above: Order Comment: Reaso n for Exam Mixed hyperlipidemia;Medication monitoring encounter Performed By: #### C MP, CBC, LIPID #### [facility] [address] MCV (RBC) [Entitic vol] 88.4 fL Normal 80-100 F [facility] Comment on above: Order Comment: Reaso n for Exam Mixed hyperlipidemia;Medication monitoring encounter Performed By: #### C MP, CBC, LIPID #### [address] Mean Corpuscular HGB Conc 33.7 g/dL Normal 32.0-35.0 Comment on above: Order Comment: Reaso n for Exam Mixed hyperlipidemia;Medication monitoring encounter Performed By: #### C MP, CBC, LIPID #### [address] Monocytes (Bld) [#/Vol] 0.5 10*3/uL Normal 0.0-0.8 Comment on above: Order Comment: Reaso n for Exam Mixed hyperlipidemia;Medication monitoring encounter Performed By: #### C MP, CBC, LIPID #### [facility] [address] [place] [address] [place] Monocytes/100 WBC (Bld) 8.4 % Normal . F [facility] Comment on above: Order Comment: Reaso n for Exam Mixed hyperlipidemia;Medication monitoring encounter Performed By: #### C MP, CBC, LIPID #### [facility] [address] [place] [address] [place] Neutrophils (Bld) [#/Vol] 3.4 10*3/uL Normal 1.8-7.7 Comment on above: Order Comment: Reaso n for Exam Mixed hyperlipidemia;Medication monitoring encounter Performed By: #### C MP, CBC, LIPID #### [facility] [address] [place] [address] [place] Neutrophils/100 WBC (Bld) 63.5 % Normal . Comment on above: Order Comment: Reaso n for Exam Mixed hyperlipidemia;Medication monitoring encounter Performed By: #### C MP, CBC, LIPID #### [facility] [address] [place] [address] NRBC% 0.1 /100{WBC} Normal 0-0.5 Comment on above: Order Comment: Reaso n for Exam Mixed hyperlipidemia;Medication monitoring encounter Performed By: #### C MP, CBC, LIPID #### [address] Platelet mean volume (Bld) [Entitic vol] 8.8 fL Normal 6.3-10.7 Comment on above: Order Comment: Reaso n for Exam Mixed hyperlipidemia;Medication monitoring encounter Performed By: #### C MP, CBC, LIPID #### [address] Platelets (Bld) [#/Vol] 172 10*3/uL Normal 150-450 Comment on above: Order Comment: Reaso n for Exam Mixed hyperlipidemia;Medication monitoring encounter Performed By: #### C MP, CBC, LIPID #### [address] RBC (Bld) [#/Vol] 4.24 10*6/uL Normal 3.60-5.00 [facility] Comment on above: Order Comment: Reaso n for Exam Mixed hyperlipidemia;Medication monitoring encounter Performed By: #### C MP, CBC, LIPID #### [address] WBC (Bld) [#/Vol] 5.4 10*3/uL Normal 3.8-11.6 [facility] Comment on above: Order Comment: Reaso n for Exam Mixed hyperlipidemia;Medication monitoring encounter Performed By: #### C MP, CBC, LIPID #### [address] Comprehensive Metabolic Pane dia 07-19-2023 Albumin [Mass/Vol] 4.1 g/dL Normal 3.5-5.7 [facility] Comment on above: Order Comment: Reaso n for Exam Mixed hyperlipidemia;Medication monitoring encounter PT IS FASTING Reason for Exam Mixed hyperlipidemia Performed By: #### C MP, CBC, LIPID #### [facility] [address] Albumin/Globulin [Mass ratio] 1.2 {ratio} Normal Comment on above: Order Comment: Reaso n for Exam Mixed hyperlipidemia;Medication monitoring encounter PT IS FASTING Reason for Exam Mixed hyperlipidemia Performed By: #### C MP, CBC, LIPID #### [facility] [address] ALP [Catalytic activity/Vol] 192 U/L High 34-104 Comment on above: Order Comment: Reaso n for Exam Mixed hyperlipidemia;Medication monitoring encounter PT IS FASTING Reason for Exam Mixed hyperlipidemia Performed By: #### C MP, CBC, LIPID #### [facility] [address] ALT [Catalytic activity/Vol] 22 U/L Normal 7-52 Comment on above: Order Comment: Reaso n for Exam Mixed hyperlipidemia;Medication monitoring encounter PT IS FASTING Reason for Exam Mixed hyperlipidemia Performed By: #### C MP, CBC, LIPID #### [facility] [address] Anion gap [Moles/Vol] 9.8 mmol/L Normal 6.0-15.0 [facility] Comment on above: Order Comment: Reaso n for Exam Mixed hyperlipidemia;Medication monitoring encounter PT IS FASTING Reason for Exam Mixed hyperlipidemia Performed By: #### C MP, CBC, LIPID #### [facility] [address] AST [Catalytic activity/Vol] 26 U/L Normal 13-39 Comment on above: Order Comment: Reaso n for Exam Mixed hyperlipidemia;Medication monitoring encounter PT IS FASTING Reason for Exam Mixed hyperlipidemia Performed By: #### C MP, CBC, LIPID #### [facility] [address] [place] [address] [place] Bilirubin [Mass/Vol] 0.7 mg/dL Normal 0.3-1.0 [facility] Comment on above: Order Comment: Reaso n for Exam Mixed hyperlipidemia;Medication monitoring encounter PT IS FASTING Reason for Exam Mixed hyperlipidemia Performed By: #### C MP, CBC, LIPID #### [facility] [address] Calcium [Mass/Vol] 9.8 mg/dL Normal 8.6-10.3 [facility] Comment on above: Order Comment: Reaso n for Exam Mixed hyperlipidemia;Medication monitoring encounter PT IS FASTING Reason for Exam Mixed hyperlipidemia Performed By: #### C MP, CBC, LIPID #### [facility] [address] Chloride [Moles/Vol] 104 mmol/L Normal 98-107 [facility] Comment on above: Order Comment: Reaso n for Exam Mixed hyperlipidemia;Medication monitoring encounter PT IS FASTING Reason for Exam Mixed hyperlipidemia Performed By: #### C MP, CBC, LIPID #### [facility] [address] CO2 [Moles/Vol] 32.5 mmol/L High 21.0-31.0 [facility] Comment on above: Order Comment: Reaso n for Exam Mixed hyperlipidemia;Medication monitoring encounter PT IS FASTING Reason for Exam Mixed hyperlipidemia Performed By: #### C MP, CBC, LIPID #### [facility] [address] Creatinine [Mass/Vol] 0.65 mg/dL Normal 0.60-1.20 [facility] Comment on above: Order Comment: Reaso n for Exam Mixed hyperlipidemia;Medication monitoring encounter PT IS FASTING Reason for Exam Mixed hyperlipidemia Performed By: #### C MP, CBC, LIPID #### [facility] [address] [place] [address] [place] GFR/1.73 sq M.predicted MDRD (S/P/Bld) [Vol rate/Area] mL/min/{1.73_m2} Normal Comment on above: Order Comment: Reaso n for Exam Mixed hyperlipidemia;Medication monitoring encounter PT IS FASTING Reason for Exam Mixed hyperlipidemia Performed By: #### C MP, CBC, LIPID #### [facility] [address] Globulin (S) [Mass/Vol] 3.4 g/dL Normal [facility] Comment on above: Order Comment: Reaso n for Exam Mixed hyperlipidemia;Medication monitoring encounter PT IS FASTING Reason for Exam Mixed hyperlipidemia Performed By: #### C MP, CBC, LIPID #### [facility] [address] [place] [id number] [place] Glucose [Mass/Vol] 88 mg/dL Normal 70-100 [facility] Comment on above: Order Comment: Reaso n for Exam Mixed hyperlipidemia;Medication monitoring encounter PT IS FASTING Reason for Exam Mixed hyperlipidemia Result Comment: Formerly named [facility] Glucose Reference Range is dependent on time and content of last meal. Glucose of more than 200 mg/dL in a nonstressed, ambulatory subject supports the diagnosis of Diabetes Mellitus. ADA recommended reference range Performed By: #### C MP, CBC, LIPID #### [facility] [address] [place] [address] [place] Potassium [Moles/Vol] 4.3 mmol/L Normal 3.5-5.1 [facility] Comment on above: Order Comment: Reaso n for Exam Mixed hyperlipidemia;Medication monitoring encounter PT IS FASTING Reason for Exam Mixed hyperlipidemia Performed By: #### C MP, CBC, LIPID #### [facility] [address] [place] [id number] [place] Protein [Mass/Vol] 7.5 g/dL Normal 6.4-8.9 [facility] Comment on above: Order Comment: Reaso n for Exam Mixed hyperlipidemia;Medication monitoring encounter PT IS FASTING Reason for Exam Mixed hyperlipidemia Performed By: #### C MP, CBC, LIPID #### [facility] [address] [place] [id number] [place] Sodium [Moles/Vol] 142 mmol/L Normal 136-145 [facility] Comment on above: Order Comment: Reaso n for Exam Mixed hyperlipidemia;Medication monitoring encounter PT IS FASTING Reason for Exam Mixed hyperlipidemia Performed By: #### C MP, CBC, LIPID #### [facility] [address] [place] [id number] [place] Urea nitrogen [Mass/Vol] 12 mg/dL Normal 7-25 Comment on above: Order Comment: Reaso n for Exam Mixed hyperlipidemia;Medication monitoring encounter PT IS FASTING Reason for Exam Mixed hyperlipidemia Performed By: #### C MP, CBC, LIPID #### [facility] [address] [place] [id number] [place] Creatinine [Mass/volume] in Serum or PlasmaOrdered By: Giovanni Mejia on 07-19-2023 Creatinine [Mass/Vol] 0.65 mg/dL 0.60-1.20 [facility] Eosinophils Auto (Bld) [#/Vo l]Ordered By: Giovanni Mejia on 07-19-2023 Eosinophils (Bld) [#/Vol] 0.2 10*3/uL 0.0-0.45 Eosinophils/100 WBC Auto (Bl d)Ordered By: Giovanni Mejia on 07-19-2023 Eosinophils/100 WBC (Bld) 3.9 % . Erythrocyte distribution wid th Auto (RBC) [Ratio]Ordered By: Giovanni Mejia on 07-19-2023 Erythrocyte distribution width (RBC) [Ratio] 13.8 % 11.9-15.3 Globulin Calc (S) [Mass/Vol] Ordered By: Giovanni Mejia on 07-19-2023 Globulin (S) [Mass/Vol] 3.4 g/dL [facility] Glucose [Mass/volume] in Ser um or PlasmaOrdered By: Giovanni Mejia on 07-19-2023 Glucose [Mass/Vol] 88 mg/dL 70-100 [facility] Comment on above: ADA recommended refe rence rangeRandom Glucose Reference Range is dependent on time and content of last meal. Glucose of more than 200 mg/dL in a nonstressed, ambulatory subject supports the diagnosis of Diabetes Mellitus. Hematocrit Auto (Bld) [Volum e fraction]Ordered By: Giovanni Mejia on 07-19-2023 Hematocrit (Bld) [Volume fraction] 37.5 % 34.0-46.4 Hemoglobin [Mass/volume] in BloodOrdered By: Giovanni Mejia on 07-19-2023 Hemoglobin (Bld) [Mass/Vol] 12.6 g/dL 11.8-15.4 Leukocytes [#/volume] correc katia for nucleated erythrocytes in Blood by Automated counOrdered By: Giovanni Mejia on 07-19-2023 WBC corrected for nucl RBC Auto (Bld) [#/Vol] 5.4 10*3/uL 3.8-11.6 Lipid Panelon 07-19-2023 Cholesterol [Mass/Vol] 169 mg/dL Normal 140-200 [facility] Comment on above: Order Comment: Reaso n for Exam Mixed hyperlipidemia;Medication monitoring encounter PT IS FASTING Reason for Exam Mixed hyperlipidemia Result Comment: Chol less than 200 mg/dl low risk Chol 201-239 mg/dl borderline risk Chol 240 mg/dl and greater high risk Performed By: #### C MP, CBC, LIPID #### [facility] [address] Cholesterol in HDL [Mass/Vol] 59 mg/dL Normal 23-92 Comment on above: Order Comment: Reaso n for Exam Mixed hyperlipidemia;Medication monitoring encounter PT IS FASTING Reason for Exam Mixed hyperlipidemia Result Comment: HDL CHOL ATP-III CLASSIFICATION Cardiovascular Risk HDL > or equal to 60 mg/dL LOW HDL < 40 mg/dL HIGH Performed By: #### C MP, CBC, LIPID #### [facility] [address] Cholesterol.total/Caty sterol in HDL [Mass ratio] 2.9 {ratio} Normal <5.0 Comment on above: Order Comment: Reaso n for Exam Mixed hyperlipidemia;Medication monitoring encounter PT IS FASTING Reason for Exam Mixed hyperlipidemia Result Comment: PERF ORMED BY: [place] [address] PATHOLOGIST [employer] MANISH SIDHU M.D. Performed By: #### C MP, CBC, LIPID #### [facility] [address] LDL Cholesterol,Calculated 89 mg/dL Normal 0-100 Comment on above: Order Comment: Reaso n for Exam Mixed hyperlipidemia;Medication monitoring encounter PT IS FASTING Reason for Exam Mixed hyperlipidemia Result Comment: LDL ATP III CLASSIFICATION LDL less than 100 mg/dL Optimal LDL 100-129 mg/dL Near or above optimal LDL 130-159 mg/dL Borderline high LDL 160-189 mg/dL High LDL greater than 189 mg/dL Very high Performed By: #### C MP, CBC, LIPID #### [facility] [address] [place] [id number] [place] Triglyceride w/Reflex 107 mg/dL Normal 0-149 [facility] Comment on above: Order Comment: Reaso n for Exam Mixed hyperlipidemia;Medication monitoring encounter PT IS FASTING Reason for Exam Mixed hyperlipidemia Result Comment: TRIG ATP III CLASSIFICATION TRIG less than 150 mg/dL Normal TRIG 150-199 mg/dL Borderline high TRIG 200-500 mg/dL High TRIG greater than 500 mg/dL Very high Standard traceable to the Center for Disease Conrtrol and Prevention (CDC) test method. Performed By: #### C MP, CBC, LIPID #### [facility] [address] VLDL CHOLESTEROL 21 mg/dL Normal [facility] Comment on above: Order Comment: Reaso n for Exam Mixed hyperlipidemia;Medication monitoring encounter PT IS FASTING Reason for Exam Mixed hyperlipidemia Performed By: #### C MP, CBC, LIPID #### [facility] [address] Lymphocytes Auto (Bld) [#/Vo l]Ordered By: Giovanni Mejia on 07-19-2023 Lymphocytes (Bld) [#/Vol] 1.3 10*3/uL 1.00-4.8 Lymphocytes/100 WBC Auto (Bl d)Ordered By: Giovanni Mejia on 07-19-2023 Lymphocytes/100 WBC (Bld) 23.5 % . MCH Auto (RBC) [Entitic mass ]Ordered By: Giovanni Mejia on 07-19-2023 MCH (RBC) [Entitic mass] 29.8 pg 24.7-34.3 MCHC Auto (RBC) [Mass/Vol]Or dered By: Giovanni Mejia on 07-19-2023 MCHC (RBC) [Mass/Vol] 33.7 g/dL 32.0-35.0 [facility] MCV Auto (RBC) [Entitic vol] Ordered By: Giovanni Mejia on 07-19-2023 MCV (RBC) [Entitic vol] 88.4 fL 80-100 [facility] Monocytes Auto (Bld) [#/Vol] Ordered By: Giovanni Mejia on 07-19-2023 Monocytes (Bld) [#/Vol] 0.5 10*3/uL 0.0-0.8 Monocytes/100 WBC Auto (Bld) Ordered By: Giovanni Mejia on 07-19-2023 Monocytes/100 WBC (Bld) 8.4 % . [facility] Neutrophils Auto (Bld) [#/Vo l]Ordered By: Giovanni Mejia on 07-19-2023 Neutrophils (Bld) [#/Vol] 3.4 10*3/uL 1.8-7.7 Neutrophils/100 WBC Auto (Bl d)Ordered By: Giovanni Mejia on 07-19-2023 Neutrophils/100 WBC (Bld) 63.5 % . No Panel InformationOrdered By: Giovanni Mejia on 07-19-2023 Estimated GFR (CKD-EPI) > 60.0 mL/Min Pharmacy Creatinine Clearance (Chem N/A Nucleated erythrocytes [Pres ence] in Blood by Automated countOrdered By: Giovanni Mejia on 07-19-2023 Nucleated RBC Auto Ql (Bld) 0.1 /100{WBC} 0-0.5 Platelet mean volume Auto (B ld) [Entitic vol]Ordered By: Giovanni Mejia on 07-19-2023 Platelet mean volume (Bld) [Entitic vol] 8.8 fL 6.3-10.7 Platelets Auto (Bld) [#/Vol] Ordered By: Giovanni Mejia on 07-19-2023 Platelets (Bld) [#/Vol] 172 10*3/uL 150-450 Potassium [Moles/volume] in Serum or PlasmaOrdered By: Giovanni Mejia on 07-19-2023 Potassium [Moles/Vol] 4.3 mmol/L 3.5-5.1 [facility] Protein [Mass/volume] in Ser um or PlasmaOrdered By: Giovanni Mejia on 07-19-2023 Protein [Mass/Vol] 7.5 g/dL 6.4-8.9 [facility] RBC Auto (Bld) [#/Vol]Ordere d By: Giovanni Mejia on 07-19-2023 RBC (Bld) [#/Vol] 4.24 10*6/uL 3.60-5.00 [facility] Serum or plasma albumin/glob ulin mass ratioOrdered By: Giovanni Mejia on 07-19-2023 Albumin/Globulin [Mass ratio] 1.2 {ratio} Serum or plasma anion gap de terminationOrdered By: Giovanni Mejia on 07-19-2023 Anion gap [Moles/Vol] 9.8 mmol/L 6.0-15.0 [facility] Serum or plasma high density lipoprotein (HDL) cholesterol measurementOrdered By: Giovanni Mejia on 07-19-2023 Cholesterol in HDL [Mass/Vol] 59 mg/dL 23- Comment on above: HDL CHOL ATP-III CLA SSIFICATION Cardiovascular RiskHDL > or equal to 60 mg/dL LOWHDL < 40 mg/dL HIGH Serum or plasma total choles terol/high density lipoprotein (HDL) cholesterol mass ratOrdered By: Giovanni Mejia on 07-19-2023 Cholesterol.total/Caty sterol in HDL [Mass ratio] 2.9 {ratio} <5.0 Sodium [Moles/volume] in Ser um or PlasmaOrdered By: Giovanni Mejia on 07-19-2023 Sodium [Moles/Vol] 142 mmol/L 136-145 [facility] Triglyceride [Mass/volume] i n Serum or PlasmaOrdered By: Giovanni Mejia on 07-19-2023 Triglyceride [Mass/Vol] 107 mg/dL 0-149 [facility] Comment on above: TRIG ATP III CLASSIF ICATIONTRIG less than 150 mg/dL NormalTRIG 150-199 mg/dL Borderline highTRIG 200-500 mg/dL High TRIG greater than 500 mg/dL Very highStandard traceable to the Center for Disease Conrtrol and Prevention (CDC) test method. Urea nitrogen [Mass/volume] in Serum or PlasmaOrdered By: Giovanni Mejia on 07-19-2023 Urea nitrogen [Mass/Vol] 12 mg/dL 7- WBC Auto (Bld) [#/Vol]Ordere d By: Giovanni Mejia on 07-19-2023 WBC (Bld) [#/Vol] 5.4 10*3/uL 3.8-11.6 [facility] 12-31-2022 L - -------- Specimen: [id number] Received: 12/31/22 Status: SANCHO Franco Num: [id number] Spec Type: Surgical Subm Dr: Ramirez Bassett MD Tissues: A Colon Biopsy (SIGMOID POLYP) Procedures: Curtis ALEX/Truong L4 -------- Age/ Patient Sex Location Account Attending Physician -------- Luz Maria Scales 62/F [id number] Ramirez Bassett MD -------- SPEC NUM: [id number] RECD: 12/31/22 STATUS: SANCHO FRANCO NUM: [id number] CHELA: 12/31/22- SUBM DR: Ramirez Bassett MD ENTERED: 12/31/22-0 [facility] DR: SPEC TYPE: Surgical DEPT: S ORDERED: HE/2, Gross/Micro L4 ORDERED: HE/2, Gross/Micro L4 Pathological Diagnosis Colon, sigmoid, polyps, biopsy: - Tubular adenoma. - No evidence of high-grade dysplasia seen. Clinical Information Screening Gross Description Received in formalin labeled with the patient's name, number and sigmoid colon polyp is one fragment of soft palma tissue measuring 0.8 x 0.3 x 0.2 cm admixed with fecal material. Entirely submitted in one cassette labeled A1. Microscopic Description Two glass slides with H E stained material have been examined. The microscopic findings support the above pathologic diagnosis. CPT Codes 64320 -------- -------- Specimen: Received: 12/31/22 Status: SANCHO Salvador Num: [id number] Spec Type: Surgical Subm Dr: Ramirez Bassett MD Tissues: A Colon Biopsy (SIGMOID POLYP) Procedures: HE/2, Gross/Micro L4 -------- Patient: Luz Maria Scales [id number] (Continued) -------- Signed (signature on file) Evert Harrison MD 01/01/23 1217 Normal Albumin [Mass/volume] in Ser um or PlasmaOrdered By: Giovanni Mejia on 07-10-2022 Albumin [Mass/Vol] 3.6 g/dL 3.2-5.5 [facility] Basophils Auto (Bld) [#/Vol] Ordered By: Giovanni Mejia on 07-10-2022 Basophils (Bld) [#/Vol] 0.0 10*3/uL 0.0-0.2 Basophils/100 WBC Auto (Bld) Ordered By: Giovanni Mejia on 07-10-2022 Basophils/100 WBC (Bld) 0.6 % . [facility] Blood hemoglobin measurement (mass/volume)Ordered By: Giovanni Mejia on 07-10-2022 Hemoglobin (Bld) [Mass/Vol] 12.9 g/dL 11.8-15.4 Blood leukocytes automated c ount (number/volume)Ordered By: Giovanni Mejia on 07-10-2022 WBC (Bld) [#/Vol] 5.3 10*3/uL 4.5-11.0 [facility] Cholesterol [Mass/volume] in Serum or PlasmaOrdered By: Giovanni Mejia on 07-10-2022 Cholesterol [Mass/Vol] 164 mg/dL 140-200 [facility] Comment on above: Chol less than 200 m g/dl low riskChol 201-239 mg/dl borderline riskChol 240 mg/dl and greater high risk Cholesterol in LDL Calc [Mas s/Vol]Ordered By: Giovanni Mejia on 07-10-2022 Cholesterol in LDL [Mass/Vol] 86 mg/dL 0-100 Comment on above: LDL ATP III CLASSIFI CATIONLDL less than 100 mg/dL OptimalLDL 100-129 mg/dL Near or above optimalLDL 130-159 mg/dL Borderline highLDL 160-189 mg/dL HighLDL greater than 189 mg/dL Very high Cholesterol in VLDL Calc [Ma ss/Vol]Ordered By: Giovanni Mejia on 07-10-2022 Cholesterol in VLDL [Mass/Vol] 16 mg/dL Creatinine and Glomerular fi ltration rate.predicted panel (S/P/Bld)Ordered By: Giovanni Mejia on 07-10-2022 Creatinine [Mass/Vol] 0.71 mg/dL 0.44-1.03 [facility] Eosinophils Auto (Bld) [#/Vo l]Ordered By: Giovanni Mejia on 07-10-2022 Eosinophils (Bld) [#/Vol] 0.2 10*3/uL 0.0-0.45 Eosinophils/100 WBC Auto (Bl d)Ordered By: Giovanni Mejia on 07-10-2022 Eosinophils/100 WBC (Bld) 3.3 % . Erythrocyte distribution wid th Auto (RBC) [Ratio]Ordered By: Giovanni Mejia on 07-10-2022 Erythrocyte distribution width (RBC) [Ratio] 13.2 % 11.9-15.3 Estimated glomerular filtrat ion rate (GFR) non- AmericanOrdered By: Giovanni Mejia on 07-10-2022 GFR/1.73 sq M.predicted among non-blacks MDRD (S/P/Bld) [Vol rate/Area] > 60 mL/Min Globulin Calc (S) [Mass/Vol] Ordered By: Giovanni Mejia on 07-10-2022 Globulin (S) [Mass/Vol] 3.5 g/dL [facility] Hematocrit Auto (Bld) [Volum e fraction]Ordered By: Giovanni Mejia on 07-10-2022 Hematocrit (Bld) [Volume fraction] 39.4 % 34.0-46.4 Laboratory - Hematology and Cell countsOrdered By: Giovanni Mejia on 07-10-2022 Nucleated RBC/100 WBC (Bld) [Ratio] 0.1 % 0-0.5 Lymphocytes Auto (Bld) [#/Vo l]Ordered By: Giovanni Mejia on 07-10-2022 Lymphocytes (Bld) [#/Vol] 1.1 10*3/uL 1.00-4.8 Lymphocytes/100 WBC Auto (Bl d)Ordered By: Giovanni Mejia on 07-10-2022 Lymphocytes/100 WBC (Bld) 21.3 % . MCH Auto (RBC) [Entitic mass ]Ordered By: Giovanni Mejia on 07-10-2022 MCH (RBC) [Entitic mass] 29.6 pg 24.7-34.3 MCHC Auto (RBC) [Mass/Vol]Or dered By: Giovanni Mejia on 07-10-2022 MCHC (RBC) [Mass/Vol] 32.8 g/dL 32.0-35.0 [facility] MCV Auto (RBC) [Entitic vol] Ordered By: Giovanni Mejia on 07-10-2022 MCV (RBC) [Entitic vol] 90.4 fL 80-100 [facility] Monocytes Auto (Bld) [#/Vol] Ordered By: Giovanni Mejia on 07-10-2022 Monocytes (Bld) [#/Vol] 0.5 10*3/uL 0.0-0.8 Monocytes/100 WBC Auto (Bld) Ordered By: Giovanni Mejia on 07-10-2022 Monocytes/100 WBC (Bld) 9.8 % . [facility] Neutrophils Auto (Bld) [#/Vo l]Ordered By: Giovanni Mejia on 07-10-2022 Neutrophils (Bld) [#/Vol] 3.5 10*3/uL 1.8-7.7 Neutrophils/100 WBC Auto (Bl d)Ordered By: Giovanni Mejia on 07-10-2022 Neutrophils/100 WBC (Bld) 65.0 % . No Panel InformationOrdered By: Giovanni Mejia on 07-10-2022 Estimated GFR () > 60 mL/Min Comment on above: GFR estimated refere nce range: According to KDOQI guidelines, <60 ml/min/1.73m2 is sufficient to diagnose a patient with chronic kidney disease. Pharmacy Creatinine Clearance (Chem N/A Platelet mean volume Auto (B ld) [Entitic vol]Ordered By: Giovanni Mejia on 07-10-2022 Platelet mean volume (Bld) [Entitic vol] 9.2 fL 6.3-10.7 Platelets Auto (Bld) [#/Vol] Ordered By: Giovanni Mejia on 07-10-2022 Platelets (Bld) [#/Vol] 198 10*3/uL 150-450 Protein [Mass/volume] in Ser um or PlasmaOrdered By: Giovanni Mejia on 07-10-2022 Protein [Mass/Vol] 7.1 g/dL 6.1-7.9 [facility] RBC Auto (Bld) [#/Vol]Ordere d By: Giovanni Mejia on 07-10-2022 RBC (Bld) [#/Vol] 4.36 10*6/uL 3.60-5.00 [facility] Serum or plasma alanine isbell otransferase measurement without P-5'-P (enzymatic activiOrdered By: Giovanni Mejia on 07-10-2022 ALT No additional P-5'-P [Catalytic activity/Vol] 22 U/L 10-60 Serum or plasma albumin/glob ulin mass ratioOrdered By: Giovanni Mejia on 07-10-2022 Albumin/Globulin [Mass ratio] 1.0 {ratio} Serum or plasma alkaline reuben sphatase measurement (enzymatic activity/volume)Ordered By: Giovanni Mejia on 07-10-2022 ALP [Catalytic activity/Vol] 105 U/L 32-92 Serum or plasma anion gap de terminationOrdered By: Giovanni Mejia on 07-10-2022 Anion gap [Moles/Vol] 12.2 mmol/L 6.0-15.0 [facility] Serum or plasma aspartate am inotransferase measurement (enzymatic activity/volume)Ordered By: Giovanni Mejia on 07-10-2022 AST [Catalytic activity/Vol] 24 U/L 10-42 Serum or plasma calcium lucien urement (mass/volume)Ordered By: Giovanni Mejia on 07-10-2022 Calcium [Mass/Vol] 9.5 mg/dL 8.2-10.2 [facility] Serum or plasma chloride cade surement (moles/volume)Ordered By: Giovanni Mejia on 07-10-2022 Chloride [Moles/Vol] 102 mmol/L 95-114 [facility] Serum or plasma glucose lucien urement (mass/volume)Ordered By: Giovanni Mejia on 07-10-2022 Glucose [Mass/Vol] 94 mg/dL 70-100 [facility] Comment on above: ADA recommended refe rence rangeRandom Glucose Reference Range is dependent on time and content of last meal. Glucose of more than 200 mg/dL in a nonstressed, ambulatory subject supports the diagnosis of Diabetes Mellitus. Serum or plasma high density lipoprotein (HDL) cholesterol measurementOrdered By: Giovanni Mejia on 07-10-2022 Cholesterol in HDL [Mass/Vol] 62 mg/dL 35-85 Comment on above: HDL CHOL ATP-III CLA SSIFICATION Cardiovascular RiskHDL > or equal to 60 mg/dL LOWHDL < 40 mg/dL HIGH Serum or plasma potassium me asurement (moles/volume)Ordered By: Giovanni Mejia on 07-10-2022 Potassium [Moles/Vol] 4.0 mmol/L 3.5-5.1 [facility] Serum or plasma sodium measu rement (moles/volume)Ordered By: Giovanni Mejia on 07-10-2022 Sodium [Moles/Vol] 140 mmol/L 136-146 [facility] Serum or plasma total biliru bin measurement (mass/volume)Ordered By: Giovanni Mejia on 07-10-2022 Bilirubin [Mass/Vol] 0.8 mg/dL 0.3-1.2 [facility] Serum or plasma total carbon dioxide measurement (moles/volume)Ordered By: Giovanni Mejia on 07-10-2022 CO2 [Moles/Vol] 29.8 mmol/L 22.0-30.0 [facility] Serum or plasma total choles terol/high density lipoprotein (HDL) cholesterol mass ratOrdered By: Giovanni Mejia on 07-10-2022 Cholesterol.total/Caty sterol in HDL [Mass ratio] 2.6 {ratio} <5.0 Serum or plasma urea nitroge n measurement (mass/volume)Ordered By: Giovanni Mejia on 07-10-2022 Urea nitrogen [Mass/Vol] 11 mg/dL 9-23 Triglyceride [Mass/volume] i n Serum or PlasmaOrdered By: Giovanni Mejia on 07-10-2022 Triglyceride [Mass/Vol] 80 mg/dL 35-149 F [facility] Comment on above: TRIG ATP III CLASSIF ICATIONTRIG less than 150 mg/dL NormalTRIG 150-199 mg/dL Borderline highTRIG 200-500 mg/dL High TRIG greater than 500 mg/dL Very highStandard traceable to the Center for Disease Conrtrol and Prevention (CDC) test method. Vital Signs Date Time Vital Sign Value Performing Clinician Facility 09-12-2023 16:00-0500 Body height 165.1 cm Giovanni Mejia Other [facility] Other 09-12-2023 16:00-0500 Body mass index (BMI) [Ratio] 23.13 kg/m2 Giovanni Mejia Other [facility] Other 09-12-2023 16:00-0500 Body weight 63.05 kg Giovanni Mejia Other [facility] Other 09-12-2023 16:00-0500 Diastolic blood pressure 70 mm[Hg] Giovanni Mejia Other [facility] Other 09-12-2023 16:00-0500 Respiratory rate 18 /min Giovanni Roberto Other [facility] Other 09-12-2023 16:00-0500 SaO2% (BldA) [Mass fraction] 99 % Giovanni Mejia Other [facility] Other 09-12-2023 16:00-0500 Systolic blood pressure 122 mm[Hg] Giovanni Mejia Other [facility] Other 07-23-2023 17:15-0400 Body height 165.1 cm Giovanni Mejia Other [facility] Other 07-23-2023 17:15-0400 Body mass index (BMI) [Ratio] 22.3 kg/m2 Giovanni Mejia Other [facility] Other 07-23-2023 17:15-0400 Body weight 60.78 kg Giovanni Rboerto Other [facility] Other 07-23-2023 17:15-0400 Diastolic blood pressure 64 mm[Hg] Giovanni Mejia Other [facility] Other 07-23-2023 17:15-0400 Respiratory rate 18 /min Giovanni Mejia Other [facility] Other 07-23-2023 17:15-0400 SaO2% (BldA) [Mass fraction] 98 % Giovanni Mejia Other [facility] Other 07-23-2023 17:15-0400 Systolic blood pressure 110 mm[Hg] Giovanni Mejia Other [facility] Other 03-19-2023 17:15-0400 Body height 165.1 cm Giovanni Mejia Other [facility] Other 03-19-2023 17:15-0400 Body mass index (BMI) [Ratio] 22.13 kg/m2 Giovanni Mejia Other [facility] Other 03-19-2023 17:15-0400 Body temperature 98.4 [degF] Giovanni Poncemer Other [facility] Other 03-19-2023 17:15-0400 Body weight 60.33 kg Giovanni Poncemer Other [facility] Other 03-19-2023 17:15-0400 Diastolic blood pressure 62 mm[Hg] Giovanni Mejia Other [facility] Other 03-19-2023 17:15-0400 SaO2% (BldA) [Mass fraction] 97 % Gioavnni Poncemer Other [facility] Other 03-19-2023 17:15-0400 Systolic blood pressure 100 mm[Hg] Giovanni Poncemer Other [facility] Other 12-31-2022 10:03-0400 Diastolic blood pressure 58 mm[Hg] DO Giovanni Mejia Work Phone: 12-31-2022 10:03-0400 Heart rate 67 /min DO Giovanni Mejia Work Phone: 12-31-2022 10:03-0400 Respiratory rate 16 /min DO Giovanni Mejia Work Phone: 12-31-2022 10:03-0400 SaO2% (BldA) [Mass fraction] 99 % DO Giovanni Mejia Work Phone: 12-31-2022 10:03-040 Systolic blood pressure 99 mm[Hg] DO Giovanni Mejia Work Phone: 12-31-2022 08:17-0400 Body height 165.1 cm DO Giovanni Mejia Work Phone: 12-31-2022 08:17-040 Body temperature 97.9 [degF] DO Giovanni Mejia Work Phone: 12-31-2022 08:17-040 Body weight 58.96 kg DO Giovanni Mejia Work Phone: 12-25-2022 16:15-0400 Body height 165.1 cm Lina Bustillo Other [facility] Other 12-25-2022 16:15-0400 Body mass index (BMI) [Ratio] 22.63 kg/m2 Lina Bustillo Other [facility] Other 12-25-2022 16:15-0400 Body weight 61.69 kg Lina Bustillo Other [facility] Other 07-18-2022 17:15-0400 Body height 165.1 cm Giovanni Mejia Other [facility] Other 07-18-2022 17:15-0400 Body mass index (BMI) [Ratio] 22.75 kg/m2 Giovanni Mejia Other [facility] Other 07-18-2022 17:15-0400 Body weight 62.01 kg Giovanni Mejia Other [facility] Other 07-18-2022 17:15-0400 Diastolic blood pressure 62 mm[Hg] Giovanni Mejia Other [facility] Other 07-18-2022 17:15-0400 Respiratory rate 16 /min Giovanni Mejia Other [facility] Other 07-18-2022 17:15-0400 SaO2% (BldA) [Mass fraction] 98 % Giovannilore Mejia Other [facility] Other 07-18-2022 17:15-0400 Systolic blood pressure 110 mm[Hg] Giovanni Mejia Other [facility] Other 03-30-2022 09:45-0400 Body height 165.1 cm Lina Bustillo Other [facility] Other 03-30-2022 09:45-0400 Body mass index (BMI) [Ratio] 22.46 kg/m2 Lina Bustillo Other [facility] Other 03-30-2022 09:45-0400 Body weight 61.24 kg Lina Bustillo Other [facility] Other 09-01-2021 10:45-0500 Body height 165.1 cm Giovanni Mejia Other [facility] Other 09-01-2021 10:45-0500 Body mass index (BMI) [Ratio] 22.31 kg/m2 Giovanni Mejia Other [facility] Other 09-01-2021 10:45-0500 Body temperature 97.8 [degF] Giovanni Mejia Other [facility] Other 09-01-2021 10:45-0500 Body weight 60.83 kg Giovanni Mejia Other [facility] Other 09-01-2021 10:45-0500 Diastolic blood pressure 82 mm[Hg] Giovanni Mejia Other [facility] Other 09-01-2021 10:45-0500 Respiratory rate 16 /min Giovanni Mejia Other [facility] Other 09-01-2021 10:45-0500 SaO2% (BldA) [Mass fraction] 97 % Giovanni Mejia Other [facility] Other 09-01-2021 10:45-0500 Systolic blood pressure 124 mm[Hg] Giovanni Mejia Other [facility] Other Encounters Encounter Date Encounter Type Care Provider Facility Start: 10-02-2023 ambulatory [facility] Start: 09-16-2023 End: 09-16-2023 ambulatory Giovanni Mejia Other [facility] Other Start: 09-16-2023 Telephone encounter Giovanni Gilles[facility] Start: 09-12-2023 End: 09-12-2023 Departed Referred DO Giovanni Mejia Work Phone: [facility] [place] Work Phone: Start: 09-12-2023 End: 09-12-2023 ambulatory DO Giovanni Mejia Work Phone: [facility] Other Start: 09-12-2023 Office outpatient vi sit 15 minutes Giovanni Mejia [facility] Start: 09-10-2023 End: 09-10-2023 ambulatory Giovanni Mejia Other [facility] Other Start: 09-10-2023 Telephone encounter Giovanni Gillespie [facility] Start: 09-02-2023 End: 09-02-2023 ambulatory Giovanni Mejia Other [facility] Other Start: 09-02-2023 Telephone encounter Giovanni Gillespie [facility] Start: 08-28-2023 End: 08-28-2023 ambulatory Giovanni Mejia Other [facility] Other Start: 08-28-2023 Telephone encounter Giovanni Gillespie [facility] Start: 07-23-2023 End: 07-23-2023 ambulatory Giovanni Mejia Other [facility] Other Start: 07-23-2023 Encounter for genera l adult medical examination without abnormal findings Giovanni Mejia [facility] Start: 07-23-2023 Periodic preventive med est patient 40-64yrs Giovanni Mejia [facility] [place] Start: 07-19-2023 End: 07-19-2023 ambulatory Giovannilore Mejia Facility: Start: 07-19-2023 End: 07-19-2023 ambulatory DO Giovanni N Roberto Work Phone: [facility] Work Phone: Start: 07-19-2023 End: 07-19-2023 Patient encounter procedure DO Giovanni Mejia Work Phone: [facility] [place] Work Phone: Start: 06-06-2023 ambulatory ANASTASIA BERMUDEZ Faci lity:H1 Start: 05-20-2023 ambulatory ANASTASIA BERMUDEZ Faci lity:H1 Start: 04-03-2023 End: 04-03-2023 ambulatory Giovanni Mejia Other [facility] Other Start: 04-03-2023 Telephone encounter Giovanni Gillespie [facility] Start: 03-19-2023 End: 03-19-2023 ambulatory Giovanni Mejia Other [facility] Other Start: 03-19-2023 Office outpatient vi sit 15 minutes Giovanni Roberto [facility] [place] Start: 01-02-2023 End: 01-03-2023 ambulatory ANASTASIA BERMUDEZ Facility: Start: 12-31-2022 End: 12-31-2022 ambulatory Giovanni Michelle PonceRoberto Facility: Start: 12-31-2022 End: 12-31-2022 Admission to same day surgery center DO Giovanni Mejia Work Phone: [facility] Work Phone: Start: 12-31-2022 End: 12-31-2022 ambulatory DO Giovanni Mejia Work Phone: [facility] Work Phone: Start: 12-25-2022 End: 12-25-2022 ambulatory Lina Bustillo Other [facility] Other Start: 12-25-2022 Office outpatient vi sit 25 minutes Lina Bustillo [facility] Start: 12-17-2022 End: 12-17-2022 ambulatory Giovanni Mejia Other [facility] Other Start: 12-17-2022 Telephone encounter Giovanni Roberto [facility] Start: 11-05-2022 End: 11-05-2022 ambulatory Nathaniel Azevedo Other [facility] Other Start: 11-05-2022 Telephone encounter Nathaniel Azevedo [facility] [place] Start: 10-31-2022 End: 02-01-2023 ambulatory Lina Bustillo Other [facility] Other Start: 10-31-2022 Telephone encounter Lina Keny [facility] Start: 08-29-2022 End: 08-29-2022 ambulatory Giovanni Mejia Other [facility] Other Start: 08-29-2022 Office outpatient vi sit 15 minutes Lina Bustillo [facility] Start: 08-29-2022 Telephone encounter Giovanni Gillespie [facility] Start: 07-27-2022 End: 07-27-2022 ambulatory Giovanni Mejia Other [facility] Other Start: 07-27-2022 Telephone encounter Giovanni Gillespie [facility] Start: 07-18-2022 End: 07-18-2022 ambulatory Giovanni Mejia Other [facility] Other Start: 07-18-2022 Encounter for genera l adult medical examination without abnormal findings Giovanni Mejia [facility] Start: 07-18-2022 Periodic preventive med est patient 40-64yrs Giovanni Mejia [facility] Start: 07-16-2022 End: 07-16-2022 ambulatory Giovanni Mejia Other [facility] Other Start: 07-16-2022 Telephone encounter Giovanni Gillespie [facility] Start: 07-10-2022 End: 07-10-2022 ambulatory DO Giovanni Michelle Roberto Work Phone: [facility] Work Phone: Start: 07-10-2022 End: 07-10-2022 Patient encounter procedure DO Giovanni Roberto Work Phone: [facility] [place] Start: 07-03-2022 End: 07-03-2022 ambulatory Giovanni Mejia Other [facility] Other Start: 07-03-2022 Telephone encounter Giovanni Gillespie [facility] Start: 05-24-2022 End: 05-24-2022 ambulatory Giovanni Mejia Other [facility] Other Start: 05-24-2022 Telephone encounter Giovanni Gillespie [facility] Start: 04-05-2022 End: 04-05-2022 ambulatory Nathaniel Roberto Carlos Other [facility] Other Start: 04-05-2022 Telephone encounter Nathaniel Azevedo [facility] [place] Start: 03-30-2022 End: 03-30-2022 ambulatory Lina Bustillo Other [facility] Other Start: 03-30-2022 Office outpatient vi sit 10 minutes Lina Calvey [facility] Start: 02-21-2022 End: 02-21-2022 ambulatory Lina Calvey Other [facility] Other Start: 02-21-2022 Office outpatient vi sit 15 minutes Lina Cal[facility] Start: 02-20-2022 End: 02-20-2022 ambulatory Giovanni Mejia Other [facility] Other Start: 02-20-2022 Telephone encounter Giovanni Gillespie [facility] Start: 10-18-2021 End: 10-18-2021 ambulatory Giovanni Mejia Other [facility] Other Start: 10-18-2021 Telephone encounter Giovanni Gillespie [facility] Start: 10-16-2021 End: 10-16-2021 ambulatory Giovanni Mejia Other [facility] Other Start: 10-16-2021 Telephone encounter Giovanni Gillespie [facility] [place] Start: 09-01-2021 End: 09-01-2021 ambulatory Giovanni Mejia Other [facility] Other Start: 09-01-2021 Office outpatient vi sit 15 minutes Giovanni Roberto [facility] Start: 08-16-2021 End: 08-16-2021 ambulatory Giovanni Mejia Other [facility] Other Start: 08-16-2021 Telephone encounter Giovanni Gillespie [facility] [place] Start: 08-03-2021 End: 08-03-2021 ambulatory Giovanni Mejia Other [facility] Other Start: 08-03-2021 Telephone encounter Giovanni Gillespie [facility] [place] Procedures Date Procedure Procedure Detail Performing Clinician Start: 12-31-2022 Screening colonoscopy D O Giovanni Mejia Work Phone: Plan of Treatment Date Care Activity Detail Author Start: 09-12-2023 Bacteria identified in Urine by Culture Urine Culture Start: 12-31-2022 Patient Education Hemorrhoids Colon Polyp s [facility] Work Phone: Immunizations Immunization Date Immunization Notes Care Provider Fa yanick 01-13-2021 COVID-19 Vaccine Moderna - Documentation Purposes Only Giovanni Poncemer Other [facility] Other 12-16-2020 COVID-19 Vaccine Moderna - Documentation Purposes Only Giovanni Poncemer Other [facility] Other 11-23-2020 influenza, injectabl e, quadrivalent, contains preservative Giovanni Mejia Other [facility] Other Payers Date Payer Category Payer [id number] 1960 Unknown [id number] 1960 Unknown [id number] 1960 Unknown [id number] 1960 Unknown [id number] 1957 Self-pay [id number] Medicaid [place] [id number] Private Health Insurance [facility] [place] [id number] Unknown [id number] Unknown [id number] Unknown [id number] Worker's Compensation [employer] [id number] Worker's Compensation [id number] Social History Date Type Detail Facility Sex Assigned At [facility] Other Start: 11-04-2020 End: 12-31-2022 Tobacco smoking status NHIS Never smoked tobacco (finding) Start: 1960 Sex Assigned At Female F [facility] Goals Date Patient Goal Desired Activity /State Clinical Notes 08-03-2021 to 10-03-2023 Note Date & Type Note Facility 10-03-2023 Note [id number] 09-16-2023 Evaluation note Encounter Date Diagnosis Assessment Notes Aug, Suspected UTI (ICD-10 - R39.89) [facility] Other 12-14-2023 Evaluation note* Encounter Date Diagnosis Assessment Notes Treatment Notes Treatment Clinical Notes Aug, Dysuria (ICD-10 - R30.0) Aug, Suspected UTI (ICD-10 - R39.89) Patient has an abnormal urinalysis and he is suspected to have UTI based on her symptoms and the abnormal urinalysis. Patient will be placed on Macrobid 100 mg twice daily and urine sent for culture. She will be contacted with the culture results if it grows something that is resistant to the antibiotic given. She is to call if she does not feel she is improving in a few days. [facility] Other 10-24-2023 Evaluation note* Encounter Date Diagnosis Assessment Notes Treatment Notes Treatment Clinical Notes Jun, Migraine without aur a and without status migrainosus, not intractable (ICD-10 - G43.009) Jun, Well adult exam (ICD-10 - Z00.00) 63-year-old female who is overall doing very well and lab work recently done was reviewed with her. It is all within normal limits without any concerning findings. Patient's current medication regimen is working well for her. Patient is a very infrequent tramadol 50 mg for severe migraine and this will be continued for her. She will need lab work in a year prior to her next annual appointment but otherwise is up-to-date on screening testing. Patient is to follow-up in 1 year or sooner if medication arises. Jun, Anxiety (ICD-10 - F41.9) Jun, Mixed hyperlipidemia (ICD-10 - E78.2) Jun, Restless leg (ICD-10 - G25.81) Jun, Medication monitorin g encounter (ICD-10 - Z51.81) [facility] Other 07-05-2023 Evaluation note* Encounter Date Diagnosis Assessment Notes Treatment Notes Treatment Clinical Notes Mar, Migraine without aura and without status migrainosus, not intractable (ICD-10 - G43.009) [facility] Other 06-20-2023 Evaluation note* Encounter Date Diagnosis Assessment Notes Treatment Notes Treatment Clinical Notes Feb, Sprain of anterior talofibular ligament of left ankle, initial encounter (ICD-10 - S93.492A) Patient has a sprain of her ankle that is improving. She was instructed to continue to ice the ankle for pain and work on exercises which she was given a handout for. She was instructed to call if not improving. She had no findings concerning for bone injury or fracture. Feb, Piriformis syndrome, right (ICD-10 - G57.01) Patient has tightness and tenderness in the right piriformis. She was instructed to use Voltaren gel and start stretches. Handout for exercises given. She is to call if not improving. Feb, Mixed hyperlipidemia (ICD-10 - E78.2) Feb, Medication monitorin g encounter (ICD-10 - Z51.81) [facility] Other 04-05-2023 NotePROCEDURE: XR FOOT RT MIN 3 VIEWS COMPARISON: None. HISTORY: Pain in right foot FINDINGS: BONES:No acute fracture or dislocation. Severe degenerative changes of the first metatarsal-phalangeal joint with [id number] articulation, marginal osteophyte formation and subchondral lytic changes SOFT TISSUES:Negative. No visible soft tissue swelling. EFFUSION:None visible. OTHER: Negative. IMPRESSION: Severe osteoarthritis first metatarsal phalangeal joint Electronically authenticated by: NISHA VANESSA Date: 2023-01-02 15:46[facility]04-03-2023 History and physical note Author Ramirez Bassett December 31, 2022 9:07am Note Date/Time December 31, 2022 9:07 am [facility] [address] [place] [address] Gastroenterology H&P Signed Patient: Luz Maria Scales MR# : [id number] : 1960 Acct:[id number] Age/Sex: 62 / F Adm Date: 3 Loc: Room: Type: [facility] Attending Dr: Ramirez Bassett MD Copies to: Ramirez Bassett MD Giovanni Mejia, ~ Date of Service: 12/31/2022 HISTORY & PHYSICAL: Patient's history with special attention to the cardiovascular, pulmonary systems and the current problem was reviewed with the patient immediately prior to the procedure. Present medications and doses reviewed in the EMR. Allergies and pertinent laboratory tests were also reviewedat this time in the EMR. The physical examination, as below, was then performed. Indication, assessment and HPI: 62-year-old female presents for screening colonoscopy Family history of GI malignancy? Yes, mother with a history of rectal carcinoidand colorectal cancer in her 50s PHYSICAL EXAMINATION Mouth and Pharynx : Moist mucus membranes, normal dentition Cardiac: Regular rate, regular rhythm Pulmonary: Clear to auscultation bilaterally, no wheezing Neurological: Alert and oriented x3, no focal deficits noted Abdomen: Abdomen soft, non-tender REVIEW OF SYSTEMS Constitutional: Denies malaise, fevers Cardiovascular: Denies chest pain, palpitations Respiratory: Denies shortness of breath, wheezing Gastrointestinal: Per HPI Genitourinary: Denies dysuria, polyuria Musculoskeletal: Denies joint swelling, joint stiffness Neurological: Denies numbness, tingling Integumentary: Denies rashes, skin lesions Endocrine: Denies fatigue, weight loss Written informed consent obtained from the patient. Risks (including but not limited to perforation, infection, bloating, bleeding, need for emergent surgeryand loss of life), benefits and alternatives explained and questions answered. The patient verbalized understanding. Based on history patient is an appropriate candidate for the procedure. Ramirez Bassett MD Documented By: Ramirez Bassett MD 12/31/22906 Signed By: <Electronically signed by Ramirez Bassett MD> 12/31/22906 [facility] Work Phone: [phone] 816-854104-03-2023 Procedure note03-28-2023 Evaluation note* Encounter Date Diagnosis Assessment Notes Treatment Notes Treatment Clinical Notes Nov, Trigger ring finger of right hand (ICD-10 - M65.341) Nov, Carpal tunnel syndro me of left wrist (ICD-10 - G56.02) Patient would like to proceed with left carpal tunnel release but needs to check work schedule. In the meantime left carpal tunnel injected with cortisone under sterile technique, patient tolerated well Nov, Trigger middle finge r of left hand (ICD-10 - M65.332) Nov, Primary osteoarthrit is of first carpometacarpal joint of right hand (ICD-10 - M18.11) [facility] Other 02-06-2023 Evaluation note* Encounter Date Diagnosis Assessment Notes Treatment Notes Treatment Clinical Notes Oct, Migraine without aura and without status migrainosus, not intractable (ICD-10 - G43.009) [facility] Other 11-30-2022 Evaluation note* Encounter Date Diagnosis Assessment Notes Treatment Notes Treatment Clinical Notes Jul, Trigger ring finger of right hand (ICD-10 - M65.341) Jul, Carpal tunnel syndro me of left wrist (ICD-10 - G56.02) Jul, Trigger middle finge r of left hand (ICD-10 - M65.332) Jul, Primary osteoarthrit is of first carpometacarpal joint of right hand (ICD-10 - M18.11) Right thumb CMC injected with cortisone under sterile technique [facility] Other 10-19-2022 Evaluation note* Encounter Date Diagnosis Assessment Notes Treatment Notes Treatment Clinical Notes Jun, Well adult exam (ICD-10 - Z00.00) 62-year-old female who has a couple of chronic medical conditions that are all doing well except for some musculoskeletal pain around the right hip. I explained to her that this is a muscular strain of the tensor fascia maria eugenia and she was given rehab exercises on how to alleviate this issue. If that resolving she is to call and return. She is due for updated lab work and this was ordered for today. She is not due for any other screening testing or examinations at this time. 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) Jun, Medication monitoring encounter (ICD-10 - Z51.81) [facility] Other 08-25-2022 Evaluation note* Encounter Date Diagnosis Assessment Notes Treatment Notes Treatment Clinical Notes Apr, Migraine without aura and without status migrainosus, not intractable (ICD-10 - G43.009) [facility] Other 07-07-2022 Evaluation note* Encounter Date Diagnosis Assessment Notes Treatment Notes Treatment Clinical Notes Mar, Restless leg (ICD-10 - G25.81) [facility] Other 07-01-2022 Evaluation note* Encounter Date Diagnosis Assessment Notes Treatment Notes Treatment Clinical Notes Mar, Trigger ring finger of right hand (ICD-10 - M65.341) Patient is progressing well. Discussed may consider repeat injection in the future if needed. Call with questions/concern s. Mar, Carpal tunnel syndro me of left wrist (ICD-10 - G56.02) Mar, Trigger middle finge r of left hand (ICD-10 - M65.332) Mar, Primary osteoarthrit is of first carpometacarpal joint of right hand (ICD-10 - M18.11) [facility] [employer] Other 05-25-2022 Evaluation note* Encounter Date Diagnosis Assessment Notes Treatment Notes Treatment Clinical Notes January, Trigger ring finger of right hand (ICD-10 - M65.341) January, Carpal tunnel syndro me of left wrist (ICD-10 - G56.02) January, Trigger middle finge r of left hand (ICD-10 - M65.332) January, Primary osteoarthrit is of first carpometacarpal joint of right hand (ICD-10 - M18.11) [employer] Other 01-19-2022 Evaluation note* Encounter Date Diagnosis Assessment Notes Treatment Notes Treatment Clinical Notes Sep, Restless leg (ICD-10 - G25.81) [employer] Other 01-17-2022 Evaluation note* Encounter Date Diagnosis Assessment Notes Treatment Notes Treatment Clinical Notes Sep, Restless leg (ICD-10 - G25.81) [employer] Other 12-03-2021 Evaluation note* Encounter Date Diagnosis Assessment Notes Treatment Notes Treatment Clinical Notes Aug, Arthritis of metatarsophalangeal (MTP) joint of great toe (ICD-10 - M19.079) Degenerative change at first metatarsal phalangeal jointPotential 2 mm tiny radioopaque body. Pain at 1st interphalangeal joint and 1st metatarsal phalangeal joint particularly made worse with plantar flexing big toe.No issues with ambulation. Normal Gait Plan:Continue voltaren gel topicalPennsaid trial, sample provided NO NSAIDS due to history of ulcers Joint injections are also an option which she would like to reserve for pain that is more severe. Aug, Mixed hyperlipidemia (ICD-10 - E78.2) Aug, Medication monitorin g encounter (ICD-10 - Z51.81) Aug, Duodenal ulcer (ICD- 10 - K26.9) [employer] Other 11-04-2021 Evaluation note* Encounter Date Diagnosis Assessment Notes Treatment Notes Treatment Clinical Notes Jul, Migraine without aura and without status migrainosus, not intractable (ICD-10 - G43.009) [employer] Other Evaluation noteNo InformationNort [employer] Other Evaluation noteNo assessment information available [facility] Work Phone: [facility] general Narrative - Reported* Type Description Date Medical History hypercholesterolemia Medical History Esophageal reflux Medical History migraine headache Medical History restless leg syndrome Surgical History (R) rotator cuff tear repair Surgical History right carpal tunnel release Hospitalization History See Above Hospitalization History ulcers [employer] Other History general Narrative - Reported* Type Description Date Medical History hypercholesterolemia Medical History Esophageal reflux Medical History migraine headache Medical History restless leg syndrome Surgical History (R) rotator cuff tear repair Surgical History right carpal tunnel release Surgical History big toe fusion right foot 06/06 Hospitalization History See Above Hospitalization History ulcers [employer] Other Hospital Discharge instructions Additional Instructions DISCHARGE INSTRUCTIONS FOR COLONOSCOPY WHAT TO EXPECT: - You may feel full, gassy or cramping after your procedure. In some cases, this may be from a few hours to a day. Walking may help relieve the discomfort. - If you have polyp(s) removed you may note some minor bloody discharge after your first bowel movements. - You should begin to recover from anesthesia within 1 hour of the procedure, however may feel groggy for the next 24 hours. DO's AND DON'Ts: - Call your doctor right away if you have a hard abdomen, severe pain, are passing lots of bright red blood or clots. - Call your doctor if you develop any rashes, hives or difficulty breathing. - Let your doctor know if you have not had a bowel movement by 3 days after your procedure. - If you take 81 mg aspirin for your heart it is safe to resume this medication. - If you take other blood thinner medications your doctor will instruct you when these can safely be resumed. - Do NOT drive for 24 hours. - Do NOT operate machinery such as power tools, lawn mowers, snow blowers, sewing machines, etc. for 24 hours. - Avoid alcoholic beverages and drugs for allergies, nerves, or sleep. - Do NOT stay alone. Do NOT leave your child unattended. - Do NOT make important personal or business decisions or sign any legal documents. - Eat solid foods and drink liquids in smaller amounts than usual until normal appetite returns. If you should experience an upset stomach, liquids high in sugar content (soda, Koko-Aid, non-acid juices) are recommended. - You can resume normal activities tomorrow. FOLLOW UP & RECOMMENDATIONS: Follow-up with Dr. Bassett as needed -Notify the doctor if you have any problems. -Repeat colonoscopy in 5 years. -Follow up with PCP. -Office number [phone].[facility] Work Phone: Reason for visit NarrativeReferral update - Dr Engle [employer] Other Chief Complaint and Reason for Visit Chief Complaint E78.2;Z51.81;K26.9 Chief Complaint Screening Chief Complaint e78.2 z51.81 Chief Complaint e78.2 z51.81 Dysuria Family History No Family History Records Found Relationship Condition Age at Onset Recorded Date/T sha Not Specified Malignant neoplasm of colon Unknown father Malignant neoplasm of liver Unknown Malignant neoplasm of lung Unknown grandparent Malignant neoplasm of breast Unknown Advance Directives No Advanced Directives Records Found Advance Directive Response Recorded Date/ Time Advance Directives No August 10:39am Advance Directive Response Recorded Date/ Time Advance Directives No August 9:39am Summary Purpose Additional Source Comments REASON FOR VISIT (unrecogniz ed section and content) med refillMED REFILLrefill2/ 3 week follow upMED REFILLRight Hand Trigger FingersrefillRecheck Right ThumbrefillrefilllabsREFILLclinicalRT HIP/AnnuelrefillRight Hand PainrefillrefillRecheck Left Handrt hip painTramadol, Requipawvrefillrefillpossible UTIpossible UTIUrine Cx Care Teams (unrecognized sec tion and content) Team Status: Inactive Member Role Status Dates Giovanni Mejia , DO Primary Care Provider, Attending Provider Active Team Status: Active Member Role Status Dates Giovanni Mejia , DO Primary Care Provider Active Team Status: Inactive Member Role Status Dates Giovanni Mejia , DO Primary Care Provider Active Ramirez Bassett MD Attending Provider Active Team Status: Inactive Member Role Status Dates Giovanni Mejia , DO Attending Provider Active Goals (unrecognized section and content) Goals may be documented in a n alternate section INFORMATION SOURCE (unrecogn ized section and content) DATE CREATED AUTHOR 01/31/2023 [facility] DATE CREATED AUTHOR AUTHOR'S ORGANIZ ATION 09/20/2023 [facility] DATE CREATED AUTHOR AUTHOR'S ORGANIZ ATION 10/21/2023 [facility] l FOR RECORDS PERTAINING TO PATIENTS WHO ARE OR HAVE BEEN ENROLLED IN A CHEMICAL DEPENDENCY/SUBSTANCEABUSE PROGRAM, SOME INFORMATION MAY BE OMITTED. This clinical summary was aggregated from multiple sources. Caution should be exercised in using it in the provision of clinical care. This summary normalizes information from multiple sources, and as a consequence, information in this document may materially change the coding, format and clinical context of patient data. In addition, data may be omitted in some cases. CLINICAL DECISIONS SHOULD BE BASED ON THE PRIMARY CLINICAL RECORDS. [employer] [facility]. provides no warranty or guarantee of the accuracy or completeness of information in this document.
== END 2023-10-23 13:11 | disposition home or self-care (01) ==
LOC: RAD 13:10
PROVIDERS: Visit Provider Podiatrist Foot & Ankle Surgery
DX: M20.21 Hallux rigidus, right foot (principal)
CPT/HCPCS: 73630

== ENCOUNTER 2023-12-18 08:49 | Outpatient (OUT) | payer BC, SELFPAY ==
--- NOTE | 2023-12-18 | XR_ITS ---
The [address] [address] Patient Name: JAGDISH SCALES MRN: [id number] date: 1960 Sex: F Assigned Patient Location: [facility] Current Patient Location: Accession/Order Number: [id number] Exam Date: 12/18/2023 15:35 Report Date: 12/19/2023 07:31 At the request of: ANASTASIA BERMUDEZ Procedure: XR foot RT min 3V PROCEDURE: XR foot RT min 3V HISTORY: RIGHT FOOT PAIN COMPARISON: XR foot right 10/23/2023 FINDINGS: BONES:Mechanical fusion the first metatarsophalangeal joint via dorsal plate and screws. No hardware fracture or loosening. No bone fracture dislocation. Evidence of prior bone harvesting from distal tibia. SOFT TISSUES:No visible soft tissue swelling. EFFUSION:None visible. OTHER: Negative. XR/XR foot RT min 3V IMPRESSION: 1. Stable surgical changes without evidence of hardware failure or change in alignment. 2. No acute or suspicious bone abnormality. Electronically authenticated by: JEANIE EMERSON Date: 12/19/2023 07:31
--- OUTSIDE RECORDS SUMMARY | 2023-12-18 09:07 | XMS_ITS | CCD ---
Author Organization [facility] Care Team Providers Care Biophysics Teacher Name Role Phone Giovanni Mejia Unavailable GuanakoLina mercado Unavailable RobertoJuanew Unavailable Roberto Carlos Nathaniel Unavailable Roberto, DO Giovanni Martinez Primary Care Provider [phone] Roberto, DO Giovanni Martinez Attending Provider Roberto, DO Giovanni Martinez Primary Care Provider MD Ramirez Bassett Attending Provider ANASTASIA BERMUDEZ Admitting Unavailable ANASTASIA BERMUDEZ Attending Unavailable ANASTASIA BERMUDEZ Admitting Unavailable ANASTASIA BERMUDEZ Attending Unavailable ANASTASIA BERMUDEZ Admitting Unavailable FOOTHILL RANCH, DR NISHA Keane Consulting Unavailable ANASTASIA BERMUDEZ Attending Unavailable ANASTASIA BERMUDEZ Consulting Unavailable Roberto, DO Giovanni Martinez Primary Care Provider [phone] Roberto, DO Giovanni Martinez Attending Provider Roberto, DO Giovanni Martinez Primary Care Provider Roberto, DO Giovanni N Attending Provider Roberto, Giovanni N Admitting Unavailable Roberto, Giovanni N Attending Unavailable Roberto, Giovanni N Primary Care Unavailable Roberto, Giovanni N Admitting Unavailable Roberto, Giovanni N Attending Unavailable Roberto, Giovanni N Primary Care Unavailable Ramirez Bassett Attending Unavailable Ramirez Bassett Admitting Unavailable Roberto, Giovanni Primary Care Unavailable Maryan Rivera Attending Unavailable Maryan Rivera Admitting Unavailable Allergies Allergy Classification Reported Allergen(s) Allergy Type Date of Onset Reaction(s) Facility (1 source) No Known Medication Allergies; Translations: [No Known Medication Allergies] Propensity to adverse reactions to drug (disorder) [facility] Repository Medications Current Medications Medication Drug [...] oral capsule (4 sources) Start: 07-11-2020 take 25436 ug by mouth twice daily Biotin Active 78377 MCG PO Twice daily July 10, 2020 [...] Orally every 12 hrs for 5 days Aug, Active omeprazole 40 mg delayed release oral [...] mg / trimethoprim 160 mg oral tablet (2 sources) Dihydrofolate Reductase Inhibitor Antibacterial, Sulfonamide Antimicrobial Start: [...] mg capsule Discontinued 500 MG PO Q8H July 17, 2020 11:00pm December 31, 2022 [...] without hemorrhage or perforation] Onset: 09-01-2021 Resolved: 09-01-2021 Chronic Gastrointestinal hemorrhage (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) Chronic duodenal [...] Coding Summaryon 10-07-2023 Coding Summary HTMLBase 64 HkacqsbkTFj7wPv+PGhlY WQ+[id number] 7dH7BYUVrSNyacMPCRRSc CVhAqdbFkPE3jwTDlRVPu IC8+WQ6mETSxWmibmGKej 3I2tJL4I49ixi3rRWxroJ M1XPZmWcIsaffms9mhwOq 6IDcuNmluOyBt BOHykM14OLP1zB16Ar20e OGpbDWia1vdxZt4IoYyOP JiUFZ5lUdgYGjzn4GtTWQ zK66baQKlg3L1 AHIxcAmzwGYeNgBlyFP9d R2cDNgjujxtw1peyqndHa c6wb61fODfu5M3uZY3J8G ftrX1QCEqyCLy JictmNSXoF8qtykwm5cfc oimPtWuQDJiDBp3DZe9VK OsqHjiIoIcCQ67ODK4KZH smtTsL8YdIPHl bOolZaO4s0D6Og8OL6TCI aukB3AEJFVQGFjkaDQ+PC 93vs18E8LyDfdpMue4JUN aOCC9rSU8uK8s GNOsLCmcc1H1gUU9J7Shk cQzip5ai8rmQJIsBVcwU7 3ttCNsa4I9INTenRV7WVL qqKgjQjJfjI32 Oyc+FUCbmSpql5MeWbqjc 2hmw9tjbOh1WutlRKFsch IraAdwZZT2u1ZiUy3zBQP svDB8qLM7aU6w AdLyJxR4BNmlP595UnLjz KBdQzfmF16dT4QgvGJ+PH ChGrb0VWSltOfyPR4aT8V hZGRpbmctbGVm pSckXX1tBTFkkjewGZHag S1iQDRjN3l5FaCcOpJ7WJ dmY7QsPCZuwybkEy82vT7 qVcSnRlX0WXvz X0DuejE5HFFdaXIkSTwiM ML4P88xp8O3WNOhUWRfAJ T1jFT9mI5ewExxnuvzjRG mdDsgdmVydGlj VOziUXosG834PEMrhOfsM kNvZGluZyBEYXRlOiAgMD EvMDgvMjAyNDwvdGQ+PHR vSCK2wWnbQATz zTRsKCgiXb5gqPktdAzgS N4oQZPvyvvsMMNqtN1aWP AcbJRhsWvsBM6gPFJcqre uf040WpCxAUE1 XUYkuVJvN8YscM0tAcKzK YHcHHGtX9AsrWPyBRdfM2 57ARycGgF5HGOdffSuW1F sLWFsaWduOiB0 i8W2Nn9Dv9LhqbudO6Nxw WSkIqVsInpsMOw4H3MqBj wvdHI+XJ45FKKeKJ78TRs 0ATR5zKpyTMxn YVLkV5PqxD8zTpZeDJCtI GRkOyc+PHRhYmxlIHdpZH RoPScxMDAlJyBzdHlsZT0 xQi9gMCTgSNUu oNrqyXIwBpSaa9brYDDuR ZciUO1zbDmvP1IrdTO3RO Dsi4b5Ek99Y74bZ4RlvXR +MJJslWP1uAX9 vH6wTvGlYhP6LKszF949I xJsoUVyYyyhd4bgj3bnuD l6ZxB9EAGqmjNcbZeuFDF 4w5KuYo33H85r IHdpZHRoPSIxNSUiIHZhb Vxlkf3ziE1nMz3+PGNvbC S9yRK4pD6gYvZkTdM2ZJc rH840UkXhkKZd Wkduo7qka3mmlEq0ZtGtO IMjsgOyeModBMH1z7NwJu 32E6JtxLodz8XaBst0lo1 6pGWqb5V3nSY2 D9AxQEPtrolllFOtiRxlA M5pTJEsrmbnZNUaxO8rSM HeW6x5PiWnOaK2KMwdQ9K cafR9UHErjUBi AFRvcPLYgT1otlany9dnu qlaQiMcMIEdCJv7ENw6DN HguNgvUkRkUXF0MsB1MLS 8aJVnmE3glRkf xzufqN4gYzw+FGW9kWWhl VYFZS9kLybhrPD+PHRkIH G3wNycFAzmDXFmcO6yHTL gU7i5QdSkNmN6 HDqvQ9QzabD3UHJaoTKlM BUxkDNTaP8yegshv9vxsi lnQuZsPZWbTDt1RIh9USR saWduOiBsZWZ0 DmN6HLY1xCUbrD5uhAfww aatdE4fWpn+QmlydGggRG Z8ECb7H1SxEfv2ASEwdVy dPX8etWViSJvm Bb9vySjraGyqLD2hINNgd ishc211SzQtz9awPBKhvN CvDWhkKCT1L18lo2W1TRL bONYkOIT9nKO7 cU1hnRpkhtxjnLCcbUsvv jSylHilNIppHEwhU492PU ZllYluArOrAIq5N5KxUeg 0AREinXsnQA3k aUNoNWqkQn4ziApunJurU P1dPNUxraipg690ZmKpz5 prSJDymZAoVFhsTZK8Z52 ih1H6DBXcGFIq DSC0sDQ3uH5puYvohusvv GVmdDsgdmVydGljYWwtYW kfS360AMUouWmgFaCefBi 0A0DkIrd4AYZr wZsjMI8kpYLoZLpfLu6ph XmyaGgxUY1vOXWwjzpap8 05SlJln9srXDCueTYyPLz tXFE3J38ls0O1 YTAlZQLfQIX5uHR6vM9cf GlnbjogbGVmdDsgdmVydG itWUrqJSerK795MKJdgBw nPlBhdGllbnQg XVneYEa3M0AbExlfsTJ+P L92MRSoZY89hLJynIGco8 yrwOb5BgHjXZBgDZK3bEd tJCldb4NlHNMe P23nhLFal0A8GMEzjZqan JYeToVehRB0vW7bWHfdzw jfr8auyeyrGfdhp1gzoo2 4kZ94H11zPChd ZHRoPSIzMCUiIHZhbGlnb r6abM6bBy5+CBXvgOH2xN F7kD5xGAAeKgL3JNwhU31 9InRvcCIvPjxj u4fgp4vhqBn6GxS6GWNhf kPlpFhwCMU9r7NtOz10U0 9sIHdpZHRoPSIyMCUiIHZ nvHyfxt1rrN0u Ii8+LNSalOP3eZP6uF4aS pTpAjT5MFusX099WwQwvE PiBcvzN59lV6XxhJY+PHR eNfn0KAXvvYzj JR4wjMJeQShxSp9gGTS8S hJmCeGpSAuqA0RwYMWgpe wumhxtsOI1ZIEfUKMwiR2 4Ql0nmVtgFSNt jWNHiQ1wmnxsr5pannxaD pZnEYBpQOp8FFw0ONSaeR saQdWoREI4TvV3NPF5iBO cyG9mvVmzkrep oB3oA9MwIPFufdsyHr72y X2kEvRrHzS4IDutKfj+UE XVWD7IIPTZQXDBBD5NZCY FQoJROU79VX29 tGMkk3V9iAE2I9ZfHRFno dvmmakirRV2WCSlFAHdtK 06oQVgGWhnNj3ho0T3p67 9YOEaWATbrY29 Bt4qfNqhCFOprTFCjH2dk gdhj2pplwhhSrQlJOAtXB l9QBn6OWZjzObwFsWfGIT 7WxS4RXZ9tOOt oL4hnOfbqlqclL6cYfz+M LsoSMCoYIl5CacieIN+PH ArNTL6oGflHIncCUOkgJ4 rULEzE4s4EaDw GoR6OXngK5OcIQYasyggT l68cD3qJhBaNxT1RRtzB9 DdtmD9LVFkvBUpBHnlULH 3L61yd8X8ICSk GXFyBDN0aSR4xO4iqYpnj jogbGVmdDsgdmVydGljYW jpHKhbH203DLNtpYrxKdG bAOsfPBLvAL60 VD04rYXda1R6aSN4A9KkY AQicguiipydcPI4GZNqPY WssK68cXPhNTthLt3qw8R 0o561FCAaKGTm oH42Ht3ezWwrPWAjrJMDo W3mgmwky4cqrlnqNoBgHL DmDVt0LAs3AEMbrEccQcJ kWSL4GsI2IYS4 vMJlxQ8yxVeqelvcgT0gR yc+VoIRGUdACW77JO85nZ Itx3K0gNS1R0XwLHQrwki nawshnUD7GWQe VRSwvC51bHIbOMgtQp6fk 0N4k315GAGbEDRriF40Mg 0xeSevPHDnrUUReP8vajb xm4jookkaOfWr HUJbJRu4RKj3DKZizGjxV dKuYVT4EmM7CAQ8kLIedF 0mxAvfznfyzP8vJkh+UmV nnGIltC1mSU58 vCAgmVurqaL2S3SjZitao HI+UE51BOJvTL10bVXvlF Yid1rsaEl3WiKqUTKxTUV 8uUqtKCest2Di LEZbQ56pzDQgn9G1SQCda SduhHNlSeVtyGH1iU4wTU ufcajzi8lqipuuKafhf0t zaa06cP74D02n IHdpZHRoPSIzMCUiIHZhb Llpky4ozY0tDd8+PGNvbC A3tRH1qX9mHkNcGaJ7LHt hI695JoArjHLh Hnlwc8fxu5kjpWj3GsJxG CTsniNtnZjiRIX3z2AoXw 21N39eMDciTTRhUXJpQPZ kMEUdoPtvqb0o aN5vBp9+GM6fc9uvek07o D48dHI+KMYePXN3nSfbBX lwQCVdkC2dLBmcPzU9CDP hNvGchK32fFPo EJwsQb9tzJynpPvdSF0mE RQaefoyh412AaUqf2zdCE ZbgNWgGMnuIBB0X61ua7M 1FQSlLVOpSBZ9 eZT6jL6evFiyrnxhlJDcr DsgdmVydGljYWwtYWxpZ2 10PKUxzQsuToNmcMCpE6j dizLBUW2mZixr dGQ+KZLkFDM7jXhvDFhbS COuoR7uPRTkD6m5LbPuTn S3FIdbO9AynoE2QMVlaQE wNXTwiARObT8j vleji7uevjwqXsGyZPKbX Uk6LCn7XRKfpTunDgCcCX B9BmU5NGQ3xJSstK9grIj epoyoeV1oJgj+ RklOOjwvdGQ+KEBqXUP1k GleIMneGBFfuT9xGUEkW6 l5QqIjFuJ9MTqoT8HswnT 6IGJvbGQgMTBw bMYZrB9kidhhh3yogcuhP uAxLUAuPTb5LEc3OVXjcT cbPhVfBNO6NjB7LCY7fOQ grA9gkJykyhpp yR0wUys+TVJOOjwvdGQ+P OImXJF7gCslNLnvZVDslV 0jQXNlE6q5EtCrIfS5IYf lF3PxexS6CGVg bMSlYOJouAQUmI9dtrxry 6mjqpjgPoIgKLGmOMe3KS e2KHQniAodYdTdPZD5ToE 2LHO4eOVpkK8o iDkxvuyitL5qKqh+UGF5Z JK7EH45DN76U3RuFasrpW FibGU+PHRhYmxlIHdpZHR oPScxMDAlJyBz dHl (more content not included)... [facility] Provider Orderson 09-19-2023 Provider Orders [id number] #[email or web address] [facility] Provider Orders [id number] [facility] - AUTOMATEDon Appearance (U) cloudy ibabybox Other Bilirubin Ql (U) Negative RPI ([employer]) Other Color (U) yellow [employer] Other Glucose Ql (U) Negative ibabybox Other Hemoglobin Ql (U) trace [employer]Eye Other Ketones Ql (U) Negative [employer]box Other Leukocyte esterase Test strip Ql (U) moderate [employer] Other Nitrite Ql (U) Negative [employer]box Other pH (U) 6.0 [pH] [employer] Other Protein Ql (U) 100 mg/dl [employer]box Other Specific gravity (U) [Rel density] 1.025 [employer] Other Urobilinogen (U) [Mass/Vol] 1.0 mg/dL [employer] Other Urinalysis - AUTOMATED No [employer] Other Urine Cultureon 09-12-2023 Bacteria identified Cx Nom (U) Reason for Exam Dysuria Urine ORGANISM: Klebsiella pneumoniae (O:KLEPNE) [place] Count >100,000 Aerobic MAHIN Charge (NMIC56) ---- [...] RESISTANT TO ALL B-LACTAM DRUGS. PERFORMED BY: [place] [address] PATHOLOGIST [employer] EQUIPMENT TECHNICIAN MANISH SIDHU M.D. Normal [facility] Comment on above: Performed By: #### C UU #### [address] Alanine aminotransferase [En zymatic activity/volume] in Serum or PlasmaOrdered By: Giovanni Mejia on 07-19-2023 ALT [Catalytic activity/Vol] 22 U/L [facility] Albumin [Mass/volume] in Ser um or Plasma by Bromocresol green (BCG) dye binding methoOrdered By: Giovanni Mejia on 07-19-2023 Albumin BCG dye [Mass/Vol] 4.1 g/dL 3.5-5.7 [facility] Alkaline phosphatase [Enzyma tic activity/volume] in Serum or PlasmaOrdered By: Giovanni Mejia on 07-19-2023 ALP [Catalytic activity/Vol] 192 U/L 34-104 [facility] Aspartate aminotransferase [ Enzymatic activity/volume] in Serum or PlasmaOrdered By: Giovanni Mejia on 07-19-2023 AST [Catalytic activity/Vol] 26 U/L 13-39 [facility] Basophils Auto (Bld) [#/Vol] Ordered By: Giovanni Mejia on 07-19-2023 Basophils (Bld) [#/Vol] 0.0 10*3/uL 0.0-0.2 [facility] Basophils/100 WBC Auto (Bld) Ordered By: Giovanni Mejia on 07-19-2023 Basophils/100 WBC (Bld) 0.7 % . [facility] Bilirubin.total [Mass/volume ] in Serum or PlasmaOrdered By: Giovanni Mejia on 07-19-2023 Bilirubin [Mass/Vol] 0.7 mg/dL 0.3-1.0 [facility] Calcium [Mass/volume] in Ser um or PlasmaOrdered By: Giovanni Mejia on 07-19-2023 Calcium [Mass/Vol] 9.8 mg/dL 8.6-10.3 [facility] Carbon dioxide, total [Moles /volume] in Serum or PlasmaOrdered By: Giovanni Mejia on 07-19-2023 CO2 [Moles/Vol] 32.5 mmol/L 21.0-31.0 [facility] Chloride [Moles/volume] in S jeremy or PlasmaOrdered By: Giovanni Mejia on 07-19-2023 Chloride [Moles/Vol] 104 mmol/L 98-107 [facility] Cholesterol [Mass/volume] in Serum or PlasmaOrdered By: Giovanni Mejia on 07-19-2023 Cholesterol [Mass/Vol] 169 mg/dL 140-200 [facility] Comment on above: Chol less than 200 m g/dl low riskChol 201-239 mg/dl borderline riskChol 240 mg/dl and greater high risk Cholesterol in LDL Calc [Mas s/Vol]Ordered By: Giovanni Mejia on 07-19-2023 Cholesterol in LDL [Mass/Vol] 89 mg/dL 0-100 [facility] Comment on above: LDL ATP III CLASSIFI CATIONLDL less than 100 mg/dL OptimalLDL 100-129 mg/dL Near or above optimalLDL 130-159 mg/dL Borderline highLDL 160-189 mg/dL HighLDL greater than 189 mg/dL Very high Cholesterol in VLDL Calc [Ma ss/Vol]Ordered By: Giovanni Mejia on 07-19-2023 Cholesterol in VLDL [Mass/Vol] 21 mg/dL [facility] Complete Blood Count Auto Di ffon 07-19-2023 Basophils (Bld) [#/Vol] 0.0 10*3/uL Normal 0.0-0.2 [facility] Comment on above: Order Comment: Reaso n for Exam Mixed hyperlipidemia;Medication monitoring encounter Result Comment: PERF ORMED BY: [place] [address] PATHOLOGIST [employer] S[employer]ET[employer] EQUIPMENT TECHNICIAN MANISH SIDHU M.D. Performed By: #### C MP, CBC, LIPID #### [facility] [address] [place] [address] [place] Basophils/100 WBC (Bld) 0.7 % Normal . [facility] Comment on above: Order Comment: Reaso n for Exam Mixed hyperlipidemia;Medication monitoring encounter Performed By: #### C MP, CBC, LIPID #### [facility] [address] [place] [address] [place] Eosinophils (Bld) [#/Vol] 0.2 10*3/uL Normal 0.0-0.45 [facility] Comment on above: Order Comment: Reaso n for Exam Mixed hyperlipidemia;Medication monitoring encounter Performed By: #### C MP, CBC, LIPID #### [facility] [address] [place] [address] [place] Eosinophils/100 WBC (Bld) 3.9 % Normal . [facility] Comment on above: Order Comment: Reaso n for Exam Mixed hyperlipidemia;Medication monitoring encounter Performed By: #### C MP, CBC, LIPID #### [facility] [address] Erythrocyte distribution width (RBC) [Ratio] 13.8 % Normal 11.9-15.3 [facility] Comment on above: Order Comment: Reaso n for Exam Mixed hyperlipidemia;Medication monitoring encounter Performed By: #### C MP, CBC, LIPID #### [facility] [address] Hematocrit (Bld) [Volume fraction] 37.5 % Normal 34.0-46.4 [facility] Comment on above: Order Comment: Reaso n for Exam Mixed hyperlipidemia;Medication monitoring encounter Performed By: #### C MP, CBC, LIPID #### [address] Hemoglobin (Bld) [Mass/Vol] 12.6 g/dL Normal 11.8-15.4 [facility] Comment on above: Order Comment: Reaso n for Exam Mixed hyperlipidemia;Medication monitoring encounter Performed By: #### C MP, CBC, LIPID #### [facility] [address] [place] [address] Lymphocytes (Bld) [#/Vol] 1.3 10*3/uL Normal 1.00-4.8 [facility] Comment on above: Order Comment: Reaso n for Exam Mixed hyperlipidemia;Medication monitoring encounter Performed By: #### C MP, CBC, LIPID #### [facility] [address] [place] [address] [place] Lymphocytes/100 WBC (Bld) 23.5 % Normal . [facility] Comment on above: Order Comment: Reaso n for Exam Mixed hyperlipidemia;Medication monitoring encounter Performed By: #### C MP, CBC, LIPID #### [facility] [address] [place] [address] MCH (RBC) [Entitic mass] 29.8 pg Normal 24.7-34.3 [facility] Comment on above: Order Comment: Reaso n for Exam Mixed hyperlipidemia;Medication monitoring encounter Performed By: #### C MP, CBC, LIPID #### [facility] [address] [place] [address] [place] MCV (RBC) [Entitic vol] 88.4 fL Normal 80-100 [facility] Comment on above: Order Comment: Reaso n for Exam Mixed hyperlipidemia;Medication monitoring encounter Performed By: #### C MP, CBC, LIPID #### [facility] [address] Mean Corpuscular HGB Conc 33.7 g/dL Normal 32.0-35.0 [facility] Comment on above: Order Comment: Reaso n for Exam Mixed hyperlipidemia;Medication monitoring encounter Performed By: #### C MP, CBC, LIPID #### [facility] [address] [place] [address] [place] Monocytes (Bld) [#/Vol] 0.5 10*3/uL Normal 0.0-0.8 [facility] Comment on above: Order Comment: Reaso n for Exam Mixed hyperlipidemia;Medication monitoring encounter Performed By: #### C MP, CBC, LIPID #### [facility] [address] [place] [address] [place] Monocytes/100 WBC (Bld) 8.4 % Normal . [facility] Comment on above: Order Comment: Reaso n for Exam Mixed hyperlipidemia;Medication monitoring encounter Performed By: #### C MP, CBC, LIPID #### [facility] [address] [place] [address] [place] Neutrophils (Bld) [#/Vol] 3.4 10*3/uL Normal 1.8-7.7 [facility] Comment on above: Order Comment: Reaso n for Exam Mixed hyperlipidemia;Medication monitoring encounter Performed By: #### C MP, CBC, LIPID #### [facility] [address] [place] [id number] [place] Neutrophils/100 WBC (Bld) 63.5 % Normal . [facility] Comment on above: Order Comment: Reaso n for Exam Mixed hyperlipidemia;Medication monitoring encounter Performed By: #### C MP, CBC, LIPID #### [facility] [address] [place] [address] [place] NRBC% 0.1 /100{WBC} Normal 0-0.5 [facility] Comment on above: Order Comment: Reaso n for Exam Mixed hyperlipidemia;Medication monitoring encounter Performed By: #### C MP, CBC, LIPID #### [facility] [address] Platelet mean volume (Bld) [Entitic vol] 8.8 fL Normal 6.3-10.7 [facility] Comment on above: Order Comment: Reaso n for Exam Mixed hyperlipidemia;Medication monitoring encounter Performed By: #### C MP, CBC, LIPID #### [facility] [address] Platelets (Bld) [#/Vol] 172 10*3/uL Normal 150-450 [facility] Comment on above: Order Comment: Reaso n for Exam Mixed hyperlipidemia;Medication monitoring encounter Performed By: #### C MP, CBC, LIPID #### [facility] [address] RBC (Bld) [#/Vol] 4.24 10*6/uL Normal 3.60-5.00 [facility] Comment on above: Order Comment: Reaso n for Exam Mixed hyperlipidemia;Medication monitoring encounter Performed By: #### C MP, CBC, LIPID #### [facility] [address] WBC (Bld) [#/Vol] 5.4 10*3/uL Normal 3.8-11.6 [facility] Comment on above: Order Comment: Reaso n for Exam Mixed hyperlipidemia;Medication monitoring encounter Performed By: #### C MP, CBC, LIPID #### [facility] [address] [place] [address] Comprehensive Metabolic Pane nilson 07-19-2023 Albumin [Mass/Vol] 4.1 g/dL Normal 3.5-5.7 [facility] Comment on above: Order Comment: Reaso n for Exam Mixed hyperlipidemia;Medication monitoring encounter PT IS FASTING Reason for Exam Mixed hyperlipidemia Performed By: #### C MP, CBC, LIPID #### [facility] [address] Albumin/Globulin [Mass ratio] 1.2 {ratio} Normal [facility] Comment on above: Order Comment: Reaso n for Exam Mixed hyperlipidemia;Medication monitoring encounter PT IS FASTING Reason for Exam Mixed hyperlipidemia Performed By: #### C MP, CBC, LIPID #### [facility] [address] [place] [address] [facility] ALP [Catalytic activity/Vol] 192 U/L High 34-104 [facility] Comment on above: Order Comment: Reaso n for Exam Mixed hyperlipidemia;Medication monitoring encounter PT IS FASTING Reason for Exam Mixed hyperlipidemia Performed By: #### C MP, CBC, LIPID #### [facility] [address] ALT [Catalytic activity/Vol] 22 U/L Normal 7-52 [facility] Comment on above: Order Comment: Reaso n for Exam Mixed hyperlipidemia;Medication monitoring encounter PT IS FASTING Reason for Exam Mixed hyperlipidemia Performed By: #### C MP, CBC, LIPID #### [facility] [address] Anion gap [Moles/Vol] 9.8 mmol/L Normal 6.0-15.0 [facility] Comment on above: Order Comment: Reaso n for Exam Mixed hyperlipidemia;Medication monitoring encounter PT IS FASTING Reason for Exam Mixed hyperlipidemia Performed By: #### C MP, CBC, LIPID #### [facility] [address] [place] [id number] [facility] AST [Catalytic activity/Vol] 26 U/L Normal 13-39 [facility] Comment on above: Order Comment: Reaso n for Exam Mixed hyperlipidemia;Medication monitoring encounter PT IS FASTING Reason for Exam Mixed hyperlipidemia Performed By: #### C MP, CBC, LIPID #### [facility] [address] [place] [address] [place] Bilirubin [Mass/Vol] 0.7 mg/dL Normal 0.3-1.0 [facility] Comment on above: Order Comment: Reaso n for Exam Mixed hyperlipidemia;Medication monitoring encounter PT IS FASTING Reason for Exam Mixed hyperlipidemia Performed By: #### C MP, CBC, LIPID #### [facility] [address] [place] [address] [place] Calcium [Mass/Vol] 9.8 mg/dL Normal 8.6-10.3 [facility] Comment on above: Order Comment: Reaso n for Exam Mixed hyperlipidemia;Medication monitoring encounter PT IS FASTING Reason for Exam Mixed hyperlipidemia Performed By: #### C MP, CBC, LIPID #### [facility] [address] Chloride [Moles/Vol] 104 mmol/L Normal 98-107 [facility] Comment on above: Order Comment: Reaso n for Exam Mixed hyperlipidemia;Medication monitoring encounter PT IS FASTING Reason for Exam Mixed hyperlipidemia Performed By: #### C MP, CBC, LIPID #### [facility] [address] CO2 [Moles/Vol] 32.5 mmol/L High 21.0-31.0 [facility] Comment on above: Order Comment: Reaso n for Exam Mixed hyperlipidemia;Medication monitoring encounter PT IS FASTING Reason for Exam Mixed hyperlipidemia Performed By: #### C MP, CBC, LIPID #### [facility] [address] Creatinine [Mass/Vol] 0.65 mg/dL Normal 0.60-1.20 [facility] Comment on above: Order Comment: Reaso n for Exam Mixed hyperlipidemia;Medication monitoring encounter PT IS FASTING Reason for Exam Mixed hyperlipidemia Performed By: #### C MP, CBC, LIPID #### [facility] [address] [place] [address] [place] GFR/1.73 sq M.predicted MDRD (S/P/Bld) [Vol rate/Area] mL/min/{1.73_m2} [facility] Comment on above: Order Comment: Reaso n for Exam Mixed hyperlipidemia;Medication monitoring encounter PT IS FASTING Reason for Exam Mixed hyperlipidemia Performed By: #### C MP, CBC, LIPID #### [facility] [address] [place] [address] [place] Globulin (S) [Mass/Vol] 3.4 g/dL Normal [facility] Comment on above: Order Comment: Reaso n for Exam Mixed hyperlipidemia;Medication monitoring encounter PT IS FASTING Reason for Exam Mixed hyperlipidemia Performed By: #### C MP, CBC, LIPID #### [facility] [address] [place] [id number] [place] Glucose [Mass/Vol] 88 mg/dL Normal 70-100 [facility] Comment on above: Order Comment: Reaso n for Exam Mixed hyperlipidemia;Medication monitoring encounter PT IS FASTING Reason for Exam Mixed hyperlipidemia Result Comment: [facility] Glucose Reference Range is dependent on time and content of last meal. Glucose of more than 200 mg/dL in a nonstressed, ambulatory subject supports the diagnosis of Diabetes Mellitus. ADA recommended reference range Performed By: #### C MP, CBC, LIPID #### [facility] [address] Potassium [Moles/Vol] 4.3 mmol/L Normal 3.5-5.1 [facility] Comment on above: Order Comment: Reaso n for Exam Mixed hyperlipidemia;Medication monitoring encounter PT IS FASTING Reason for Exam Mixed hyperlipidemia Performed By: #### C MP, CBC, LIPID #### [facility] [address] Protein [Mass/Vol] 7.5 g/dL Normal 6.4-8.9 [facility] Comment on above: Order Comment: Reaso n for Exam Mixed hyperlipidemia;Medication monitoring encounter PT IS FASTING Reason for Exam Mixed hyperlipidemia Performed By: #### C MP, CBC, LIPID #### [facility] [address] [place] [id number] [place] Sodium [Moles/Vol] 142 mmol/L Normal 136-145 [facility] Comment on above: Order Comment: Reaso n for Exam Mixed hyperlipidemia;Medication monitoring encounter PT IS FASTING Reason for Exam Mixed hyperlipidemia Performed By: #### C MP, CBC, LIPID #### [facility] [address] [place] [id number] [place] Urea nitrogen [Mass/Vol] 12 mg/dL Normal 7-25 [facility] Comment on above: Order Comment: Reaso n for Exam Mixed hyperlipidemia;Medication monitoring encounter PT IS FASTING Reason for Exam Mixed hyperlipidemia Performed By: #### C MP, CBC, LIPID #### [facility] [address] [id number] [place] Creatinine [Mass/volume] in Serum or PlasmaOrdered By: Giovanni Mejia on 07-19-2023 Creatinine [Mass/Vol] 0.65 mg/dL 0.60-1.20 [facility] Eosinophils Auto (Bld) [#/Vo l]Ordered By: Giovanni Mejia on 07-19-2023 Eosinophils (Bld) [#/Vol] 0.2 10*3/uL 0.0-0.45 [facility] Eosinophils/100 WBC Auto (Bl d)Ordered By: Giovanni Mejia on 07-19-2023 Eosinophils/100 WBC (Bld) 3.9 % . [facility] Erythrocyte distribution wid th Auto (RBC) [Ratio]Ordered By: Giovanni Mejia on 07-19-2023 Erythrocyte distribution width (RBC) [Ratio] 13.8 % 11.9-15.3 [facility] Globulin Calc (S) [Mass/Vol] Ordered By: Giovanni Mejia on 07-19-2023 Globulin (S) [Mass/Vol] 3.4 g/dL [facility] Glucose [Mass/volume] in Ser um or PlasmaOrdered By: Giovanni Mejia on 07-19-2023 Glucose [Mass/Vol] 88 mg/dL 70-100 [facility] Comment on above: ADA recommended refe rence rangeRandom Glucose Reference Range is dependent on time and content of last meal. Glucose of more than 200 mg/dL in a nonstressed, ambulatory subject supports the diagnosis of Diabetes Mellitus. Hematocrit Auto (Bld) [Volum e fraction]Ordered By: Giovanni Mejia on 07-19-2023 Hematocrit (Bld) [Volume fraction] 37.5 % 34.0-46.4 [facility] Hemoglobin [Mass/volume] in BloodOrdered By: Giovanni Mejia on 07-19-2023 Hemoglobin (Bld) [Mass/Vol] 12.6 g/dL 11.8-15.4 [facility] Leukocytes [#/volume] correc katia for nucleated erythrocytes in Blood by Automated counOrdered By: Giovanni Mejia on 07-19-2023 WBC corrected for nucl RBC Auto (Bld) [#/Vol] 5.4 10*3/uL 3.8-11.6 [facility] Lipid Panelon 07-19-2023 Cholesterol [Mass/Vol] 169 mg/dL Normal 140-200 [facility] Comment on above: Order Comment: Reaso n for Exam Mixed hyperlipidemia;Medication monitoring encounter PT IS FASTING Reason for Exam Mixed hyperlipidemia Result Comment: Chol less than 200 mg/dl low risk Chol 201-239 mg/dl borderline risk Chol 240 mg/dl and greater high risk Performed By: #### C MP, CBC, LIPID #### [facility] [address] [id number] [place] Cholesterol in HDL [Mass/Vol] 59 mg/dL Normal 23-92 [facility] Comment on above: Order Comment: Reaso n for Exam Mixed hyperlipidemia;Medication monitoring encounter PT IS FASTING Reason for Exam Mixed hyperlipidemia Result Comment: HDL CHOL ATP-III CLASSIFICATION Cardiovascular Risk HDL > or equal to 60 mg/dL LOW HDL < 40 mg/dL HIGH Performed By: #### C MP, CBC, LIPID #### [facility] [address] [place], [place] [address] Cholesterol.total/Caty sterol in HDL [Mass ratio] 2.9 {ratio} Normal <5.0 [facility] Comment on above: Order Comment: Reaso n for Exam Mixed hyperlipidemia;Medication monitoring encounter PT IS FASTING Reason for Exam Mixed hyperlipidemia Result Comment: PERF ORMED BY: [place] [address] PATHOLOGIST [employer] MANISH SIDHU M.D. Performed By: #### C MP, CBC, LIPID #### [facility] [address] [id number] [facility] LDL Cholesterol,Calculated 89 mg/dL Normal 0-100 [facility] Comment on above: Order Comment: Reaso [...] By: #### C MP, CBC, LIPID #### [facility] [address] [place] [address] [place] Triglyceride w/Reflex 107 mg/dL Normal 0-149 [facility] Comment on above: Order Comment: Reaso [...] By: #### C MP, CBC, LIPID #### [facility] [address] VLDL CHOLESTEROL 21 mg/dL Normal [facility] Comment on above: Order Comment: Reaso n for Exam Mixed hyperlipidemia;Medication monitoring encounter PT IS FASTING Reason for Exam Mixed hyperlipidemia Performed By: #### C MP, CBC, LIPID #### [facility] [address] Lymphocytes Auto (Bld) [#/Vo l]Ordered By: Giovanni Mejia on 07-19-2023 Lymphocytes (Bld) [#/Vol] 1.3 10*3/uL 1.00-4.8 [facility] Lymphocytes/100 WBC Auto (Bl d)Ordered By: Giovanni Mejia on 07-19-2023 Lymphocytes/100 WBC (Bld) 23.5 % . [facility] MCH Auto (RBC) [Entitic mass ]Ordered By: Giovanni Mejia on 07-19-2023 MCH (RBC) [Entitic mass] 29.8 pg 24.7-34.3 [facility] MCHC Auto (RBC) [Mass/Vol]Or dered By: Giovanni Mejia on 07-19-2023 MCHC (RBC) [Mass/Vol] 33.7 g/dL 32.0-35.0 [facility] MCV Auto (RBC) [Entitic vol] Ordered By: Giovanni Mejia on 07-19-2023 MCV (RBC) [Entitic vol] 88.4 fL 80-100 [facility] Monocytes Auto (Bld) [#/Vol] Ordered By: Giovanni Mejia on 07-19-2023 Monocytes (Bld) [#/Vol] 0.5 10*3/uL 0.0-0.8 [facility] Monocytes/100 WBC Auto (Bld) Ordered By: Giovanni Mejia on 07-19-2023 Monocytes/100 WBC (Bld) 8.4 % . [facility] Neutrophils Auto (Bld) [#/Vo l]Ordered By: Giovanni Mejia on 07-19-2023 Neutrophils (Bld) [#/Vol] 3.4 10*3/uL 1.8-7.7 [facility] Neutrophils/100 WBC Auto (Bl d)Ordered By: Giovanni Mejia on 07-19-2023 Neutrophils/100 WBC (Bld) 63.5 % . [facility] No Panel InformationOrdered By: Giovanni Mejia on 07-19-2023 Estimated GFR (CKD-EPI) > 60.0 mL/Min [facility] Creatinine Clearance (Chem N/A [facility] Nucleated erythrocytes [Pres ence] in Blood by Automated countOrdered By: Giovanni Mejia on 07-19-2023 Nucleated RBC Auto Ql (Bld) 0.1 /100{WBC} 0-0.5 [facility] Platelet mean volume Auto (B ld) [Entitic vol]Ordered By: Giovanni Mejia on 07-19-2023 Platelet mean volume (Bld) [Entitic vol] 8.8 fL 6.3-10.7 [facility] Platelets Auto (Bld) [#/Vol] Ordered By: Giovanni Mejia on 07-19-2023 Platelets (Bld) [#/Vol] 172 10*3/uL 150-450 [facility] Potassium [Moles/volume] in Serum or PlasmaOrdered By: Giovanni Mejia on 07-19-2023 Potassium [Moles/Vol] 4.3 mmol/L 3.5-5.1 [facility] Protein [Mass/volume] in Ser um or PlasmaOrdered By: Giovanni Mejia on 07-19-2023 Protein [Mass/Vol] 7.5 g/dL 6.4-8.9 [facility] RBC Auto (Bld) [#/Vol]Ordere d By: Giovanni Mejia on 07-19-2023 RBC (Bld) [#/Vol] 4.24 10*6/uL 3.60-5.00 [facility] Serum or plasma albumin/glob ulin mass ratioOrdered By: Giovanni Mejia on 07-19-2023 Albumin/Globulin [Mass ratio] 1.2 {ratio} [facility] Serum or plasma anion gap de terminationOrdered By: Giovanni Mejia on 07-19-2023 Anion gap [Moles/Vol] 9.8 mmol/L 6.0-15.0 [facility] Serum or plasma high density lipoprotein (HDL) cholesterol measurementOrdered By: Giovanni Mejia on 07-19-2023 Cholesterol in HDL [Mass/Vol] 59 mg/dL 23- [facility] Comment on above: HDL CHOL ATP-III CLA SSIFICATION Cardiovascular RiskHDL > or equal to 60 mg/dL LOWHDL < 40 mg/dL HIGH Serum or plasma total choles terol/high density lipoprotein (HDL) cholesterol mass ratOrdered By: Giovanni Mejia on 07-19-2023 Cholesterol.total/Caty sterol in HDL [Mass ratio] 2.9 {ratio} <5.0 [facility] Sodium [Moles/volume] in Ser um or PlasmaOrdered By: Giovanni Mejia on 07-19-2023 Sodium [Moles/Vol] 142 mmol/L 136-145 [facility] Triglyceride [Mass/volume] i n Serum or PlasmaOrdered By: Giovanni Mejia on 07-19-2023 Triglyceride [Mass/Vol] 107 mg/dL 0-149 [facility] Comment on above: TRIG ATP III CLASSIF ICATIONTRIG less than 150 mg/dL NormalTRIG 150-199 mg/dL Borderline highTRIG 200-500 mg/dL High TRIG greater than 500 mg/dL Very highStandard traceable to the Center for Disease Conrtrol and Prevention (CDC) test method. Urea nitrogen [Mass/volume] in Serum or PlasmaOrdered By: Giovanni Mejia on 07-19-2023 Urea nitrogen [Mass/Vol] 12 mg/dL 7- [facility] WBC Auto (Bld) [#/Vol]Ordere d By: Giovanni Mejia on 07-19-2023 WBC (Bld) [#/Vol] 5.4 10*3/uL 3.8-11.6 [facility] [place] 12-31-2022 L - -------- Specimen: Received: 12/31/22 Status: SANCHO Franco Num: [id number] Spec Type: Surgical Subm Dr: Ramirez Bassett MD Tissues: A Colon Biopsy (SIGMOID POLYP) Procedures: HE/2, Gross/Micro L4 -------- Age/ Patient Sex Location Account Attending Physician -------- Luz Maria Scales 62/F [id number] Ramirez Bassett MD -------- SPEC NUM: [id number] RECD: 12/31/22 STATUS: SANCHO FRANCO NUM: [id number] CHELA: 12/31/22- [facility] DR: Ramirez Bassett MD ENTERED: 12/31/22-[address]: SPEC TYPE: Surgical DEPT: S [...] support the above pathologic diagnosis. CPT Codes 76565 -------- -------- Specimen: [id number] Received: 12/31/22 Status: SANCHO Franco Num: [id number] Spec Type: Surgical Subm Dr: Ramirez Bassett MD Tissues: A Colon Biopsy (SIGMOID POLYP) Procedures: HE/2, Gross/Micro L4 -------- Patient: Luz Maria Scales [id number] (Continued) -------- Signed (signature on file) Evert Harrison MD 01/01/23 1217 Normal [facility] Albumin [Mass/volume] in Ser um or PlasmaOrdered By: Giovanni Mejia on 07-10-2022 Albumin [Mass/Vol] 3.6 g/dL 3.2-5.5 [facility] Basophils Auto (Bld) [#/Vol] Ordered By: Giovanni Mejia on 07-10-2022 Basophils (Bld) [#/Vol] 0.0 10*3/uL 0.0-0.2 [facility] Basophils/100 WBC Auto (Bld) Ordered By: Giovanni Mejia on 07-10-2022 Basophils/100 WBC (Bld) 0.6 % . [facility] Blood hemoglobin measurement (mass/volume)Ordered By: Giovanni Mejia on 07-10-2022 Hemoglobin (Bld) [Mass/Vol] 12.9 g/dL 11.8-15.4 [facility] Blood leukocytes automated c ount (number/volume)Ordered By: Giovanni Mejia on 07-10-2022 WBC (Bld) [#/Vol] 5.3 10*3/uL 4.5-11.0 [facility] Cholesterol [Mass/volume] in Serum or PlasmaOrdered By: Giovanni Mejia on 07-10-2022 Cholesterol [Mass/Vol] 164 mg/dL 140-200 [facility] Comment on above: Chol less than 200 m g/dl low riskChol 201-239 mg/dl borderline riskChol 240 mg/dl and greater high risk Cholesterol in LDL Calc [Mas s/Vol]Ordered By: Giovanni Mejia on 07-10-2022 Cholesterol in LDL [Mass/Vol] 86 mg/dL 0-100 [facility] Comment on above: LDL ATP III CLASSIFI CATIONLDL less than 100 mg/dL OptimalLDL 100-129 mg/dL Near or above optimalLDL 130-159 mg/dL Borderline highLDL 160-189 mg/dL HighLDL greater than 189 mg/dL Very high Cholesterol in VLDL Calc [Ma ss/Vol]Ordered By: Gioavnni Mejia on 07-10-2022 Cholesterol in VLDL [Mass/Vol] 16 mg/dL [facility] Creatinine and Glomerular fi ltration rate.predicted panel (S/P/Bld)Ordered By: Giovanni Mejia on 07-10-2022 Creatinine [Mass/Vol] 0.71 mg/dL 0.44-1.03 [facility] Eosinophils Auto (Bld) [#/Vo l]Ordered By: Giovanni Mejia on 07-10-2022 Eosinophils (Bld) [#/Vol] 0.2 10*3/uL 0.0-0.45 [facility] Eosinophils/100 WBC Auto (Bl d)Ordered By: Giovanni Mejia on 07-10-2022 Eosinophils/100 WBC (Bld) 3.3 % . [facility] Erythrocyte distribution wid th Auto (RBC) [Ratio]Ordered By: Giovanni Mejia on 07-10-2022 Erythrocyte distribution width (RBC) [Ratio] 13.2 % 11.9-15.3 [facility] Estimated glomerular filtrat ion rate (GFR) non- AmericanOrdered By: Giovanni Mejia on 07-10-2022 GFR/1.73 sq M.predicted among non-blacks MDRD (S/P/Bld) [Vol rate/Area] > 60 mL/Min [facility] Globulin Calc (S) [Mass/Vol] Ordered By: Giovanni Mejia on 07-10-2022 Globulin (S) [Mass/Vol] 3.5 g/dL [facility] Hematocrit Auto (Bld) [Volum e fraction]Ordered By: Giovanni Mejia on 07-10-2022 Hematocrit (Bld) [Volume fraction] 39.4 % 34.0-46.4 [facility] Laboratory - Hematology and Cell countsOrdered By: Giovanni Mejia on 07-10-2022 Nucleated RBC/100 WBC (Bld) [Ratio] 0.1 % 0-0.5 [facility] Lymphocytes Auto (Bld) [#/Vo l]Ordered By: Giovanni Mejia on 07-10-2022 Lymphocytes (Bld) [#/Vol] 1.1 10*3/uL 1.00-4.8 [facility] Lymphocytes/100 WBC Auto (Bl d)Ordered By: Giovanni Mejia on 07-10-2022 Lymphocytes/100 WBC (Bld) 21.3 % . [facility] MCH Auto (RBC) [Entitic mass ]Ordered By: Giovanni Mejia on 07-10-2022 MCH (RBC) [Entitic mass] 29.6 pg 24.7-34.3 [facility] MCHC Auto (RBC) [Mass/Vol]Or dered By: Giovanni Mejia on 07-10-2022 MCHC (RBC) [Mass/Vol] 32.8 g/dL 32.0-35.0 [facility] MCV Auto (RBC) [Entitic vol] Ordered By: Giovanni Mejia on 07-10-2022 MCV (RBC) [Entitic vol] 90.4 fL 80-100 [facility] Monocytes Auto (Bld) [#/Vol] Ordered By: Giovanni Mejia on 07-10-2022 Monocytes (Bld) [#/Vol] 0.5 10*3/uL 0.0-0.8 [facility] Monocytes/100 WBC Auto (Bld) Ordered By: Giovanni Mejia on 07-10-2022 Monocytes/100 WBC (Bld) 9.8 % . [facility] Neutrophils Auto (Bld) [#/Vo l]Ordered By: Giovanni Mejia on 07-10-2022 Neutrophils (Bld) [#/Vol] 3.5 10*3/uL 1.8-7.7 [facility] Neutrophils/100 WBC Auto (Bl d)Ordered By: Giovanni Mejia on 07-10-2022 Neutrophils/100 WBC (Bld) 65.0 % . [facility] No Panel InformationOrdered By: Giovanni Mejia on 07-10-2022 Estimated GFR () > 60 mL/Min [facility] Comment on above: GFR estimated refere nce range: According to KDOQI guidelines, <60 ml/min/1.73m2 is sufficient to diagnose a patient with chronic kidney disease. Pharmacy Creatinine Clearance (Chem N/A [facility] Platelet mean volume Auto (B ld) [Entitic vol]Ordered By: Giovanni Mejia on 07-10-2022 Platelet mean volume (Bld) [Entitic vol] 9.2 fL 6.3-10.7 [facility] Platelets Auto (Bld) [#/Vol] Ordered By: Giovanni Mejia on 07-10-2022 Platelets (Bld) [#/Vol] 198 10*3/uL 150-450 [facility] Protein [Mass/volume] in Ser um or PlasmaOrdered By: Giovanni Mejia on 07-10-2022 Protein [Mass/Vol] 7.1 g/dL 6.1-7.9 [facility] RBC Auto (Bld) [#/Vol]Ordere d By: Giovanni Mejia on 07-10-2022 RBC (Bld) [#/Vol] 4.36 10*6/uL 3.60-5.00 [facility] Serum or plasma alanine isbell otransferase measurement without P-5'-P (enzymatic activiOrdered By: Giovanni Mejia on 07-10-2022 ALT No additional P-5'-P [Catalytic activity/Vol] 22 U/L 10-60 [facility] Serum or plasma albumin/glob ulin mass ratioOrdered By: Giovanni Mejia on 07-10-2022 Albumin/Globulin [Mass ratio] 1.0 {ratio} [facility] Serum or plasma alkaline reuben sphatase measurement (enzymatic activity/volume)Ordered By: Giovanni Mejia on 07-10-2022 ALP [Catalytic activity/Vol] 105 U/L 32-92 [facility] Serum or plasma anion gap de terminationOrdered By: Giovanni Mejia on 07-10-2022 Anion gap [Moles/Vol] 12.2 mmol/L 6.0-15.0 [facility] Serum or plasma aspartate am inotransferase measurement (enzymatic activity/volume)Ordered By: Giovanni Mejia on 07-10-2022 AST [Catalytic activity/Vol] 24 U/L 10-42 [facility] Serum or plasma calcium lucien urement (mass/volume)Ordered By: Giovanni Mejia on 07-10-2022 Calcium [Mass/Vol] 9.5 mg/dL 8.2-10.2 [facility] Serum or plasma chloride cade surement (moles/volume)Ordered By: Giovanni Mejia on 07-10-2022 Chloride [Moles/Vol] 102 mmol/L 95-114 [facility] Serum or plasma glucose lucien urement (mass/volume)Ordered By: Giovanni Mejia on 07-10-2022 Glucose [Mass/Vol] 94 mg/dL 70-100 [facility] Comment on above: ADA recommended refe rence rangeRandom Glucose Reference Range is dependent on time and content of last meal. Glucose of more than 200 mg/dL in a nonstressed, ambulatory subject supports the diagnosis of Diabetes Mellitus. Serum or plasma high density lipoprotein (HDL) cholesterol measurementOrdered By: Giovanni Mejia on 07-10-2022 Cholesterol in HDL [Mass/Vol] 62 mg/dL 35-85 [facility] Comment on above: HDL CHOL ATP-III CLA SSIFICATION Cardiovascular RiskHDL > or equal to 60 mg/dL LOWHDL < 40 mg/dL HIGH Serum or plasma potassium me asurement (moles/volume)Ordered By: Giovanni Mejia on 07-10-2022 Potassium [Moles/Vol] 4.0 mmol/L 3.5-5.1 [facility] Serum or plasma sodium measu rement (moles/volume)Ordered By: Giovanni Mejia on 07-10-2022 Sodium [Moles/Vol] 140 mmol/L 136-146 [facility] Serum or plasma total biliru bin measurement (mass/volume)Ordered By: Giovanni Mejia on 07-10-2022 Bilirubin [Mass/Vol] 0.8 mg/dL 0.3-1.2 [facility] Serum or plasma total carbon dioxide measurement (moles/volume)Ordered By: Giovanni Mejia on 07-10-2022 CO2 [Moles/Vol] 29.8 mmol/L 22.0-30.0 [facility] Serum or plasma total choles terol/high density lipoprotein (HDL) cholesterol mass ratOrdered By: Giovanni Mejia on 07-10-2022 Cholesterol.total/Caty sterol in HDL [Mass ratio] 2.6 {ratio} <5.0 [facility] Serum or plasma urea nitroge n measurement (mass/volume)Ordered By: Giovanni Mejia on 07-10-2022 Urea nitrogen [Mass/Vol] 11 mg/dL 9- [facility] Triglyceride [Mass/volume] i n Serum or PlasmaOrdered By: Giovanni Mejia on 07-10-2022 Triglyceride [Mass/Vol] 80 mg/dL 35-149 [facility] Comment on above: TRIG ATP III CLASSIF ICATIONTRIG less than 150 mg/dL NormalTRIG 150-199 mg/dL Borderline highTRIG 200-500 mg/dL High TRIG greater than 500 mg/dL Very highStandard traceable to the Center for Disease Conrtrol and Prevention (CDC) test method. Vital Signs Date Time Vital Sign Value Performing Clinician Facility 09-12-2023 16:00-0500 Body height 165.1 cm Giovanni Mejia Other [facility] Other 09-12-2023 16:00-0500 Body mass index (BMI) [Ratio] 23.13 kg/m2 Giovanni Mejia Other [facility] Other 09-12-2023 16:00-0500 Body weight 63.05 kg Giovanni Mejia Other [facility] Other 09-12-2023 16:00-0500 Diastolic blood pressure 70 mm[Hg] Giovanni Mejia Other [facility] Other 09-12-2023 16:00-0500 Respiratory rate 18 /min Giovanni Mejia Other [facility] Other 09-12-2023 16:00-0500 SaO2% (BldA) [Mass fraction] 99 % Giovanni Mejia Other [facility] Other 09-12-2023 16:00-0500 Systolic blood pressure 122 mm[Hg] Giovanni Mejia Other [facility] Other 07-23-2023 17:15-0400 Body height 165.1 cm Giovanni Mejia Other [facility] Other 07-23-2023 17:15-0400 Body mass index (BMI) [Ratio] 22.3 kg/m2 Giovanni Mejia Other [facility] Other 07-23-2023 17:15-0400 Body weight 60.78 kg Giovanni Mejia Other [facility] Other 07-23-2023 17:15-0400 Diastolic blood pressure 64 mm[Hg] Giovanni Mejia Other [facility] Other 07-23-2023 17:15-0400 Respiratory rate 18 /min Giovanni Mejia Other [facility] Other 07-23-2023 17:15-0400 SaO2% (BldA) [Mass fraction] 98 % Giovanni Mejia Other [facility] Other 07-23-2023 17:15-0400 Systolic blood pressure 110 mm[Hg] Giovanni Mejia Other [facility] Other 03-19-2023 17:15-0400 Body height 165.1 cm Giovanni Mejia Other [facility] Other 03-19-2023 17:15-0400 Body mass index (BMI) [Ratio] 22.13 kg/m2 Giovanni Mejia Other [facility] Other 03-19-2023 17:15-0400 Body temperature 98.4 [degF] Giovanni Mejia Other [facility] Other 03-19-2023 17:15-0400 Body weight 60.33 kg Giovanni Mejia Other [facility] Other 03-19-2023 17:15-0400 Diastolic blood pressure 62 mm[Hg] Giovanni Mejia Other [facility] Other 03-19-2023 17:15-0400 SaO2% (BldA) [Mass fraction] 97 % Giovanni Mejia Other [facility] Other 03-19-2023 17:15-0400 Systolic blood pressure 100 mm[Hg] Giovanni Mejia Other [facility] Other 12-31-2022 10:03-0400 Diastolic blood pressure 58 mm[Hg] DO Giovanni Mejia Work Phone: [facility] 12-31-2022 10:03-0400 Heart rate 67 /min DO Giovanni Mejia Work Phone: [facility] 12-31-2022 10:03-0400 Respiratory rate 16 /min DO Giovanni Mejia Work Phone: [facility] 12-31-2022 10:03-0400 SaO2% (BldA) [Mass fraction] 99 % DO Giovanni Mejia Work Phone: [facility] 04-03-2023 10:03-0400 Systolic blood pressure 99 mm[Hg] DO Giovanni Mejia Work Phone: [facility] 12-31-2022 08:17-0400 Body height 165.1 cm DO Giovanni Mejia Work Phone: [facility] 12-31-2022 08:17-0400 Body temperature 97.9 [degF] DO Goivanni Mejia Work Phone: [facility] 12-31-2022 08:17-0400 Body weight 58.96 kg DO Giovanni Mejia Work Phone: [facility] 12-25-2022 16:15-0400 Body height 165.1 cm Lina Bustillo Other [facility] Other 12-25-2022 16:15-0400 Body mass index (BMI) [Ratio] 22.63 kg/m2 Lina Bustillo Other [facility] Other 12-25-2022 16:15-0400 Body weight 61.69 kg Lina Bustillo Other [facility] Other 07-18-2022 17:15-0400 Body height 165.1 cm Giovanni Roberto Other [facility] Other 07-18-2022 17:15-0400 Body mass index (BMI) [Ratio] 22.75 kg/m2 Giovanni Roberto Other [facility] Other 07-18-2022 17:15-0400 Body weight 62.01 kg Giovanni Roberto Other [facility] Other 07-18-2022 17:15-0400 Diastolic blood pressure 62 mm[Hg] Giovanni Mejia Other [facility] Other 07-18-2022 17:15-0400 Respiratory rate 16 /min Giovanni Mejia Other [facility] Other 07-18-2022 17:15-0400 SaO2% (BldA) [Mass fraction] 98 % Giovanni Mejia Other [facility] Other 07-18-2022 17:15-0400 Systolic blood pressure 110 mm[Hg] Giovanni Mejia Other [facility] Other 03-30-2022 09:45-0400 Body height 165.1 cm Lina Bustillo Other [facility] Other 03-30-2022 09:45-0400 Body mass index (BMI) [Ratio] 22.46 kg/m2 Lina Bustillo Other [facility] Other 03-30-2022 09:45-0400 Body weight 61.24 kg Lina Bustillo Other [facility] Other 09-01-2021 10:45-0500 Body height 165.1 cm Giovanni Mejia Other [facility] Other 09-01-2021 10:45-0500 Body mass index (BMI) [Ratio] 22.31 kg/m2 Giovanni Mejia Other [facility] Other 09-01-2021 10:45-0500 Body temperature 97.8 [degF] Giovanni Mejia Other [facility] Other 09-01-2021 10:45-0500 Body weight 60.83 kg Giovanni Mejia Other [facility] Other 09-01-2021 10:45-0500 Diastolic blood pressure 82 mm[Hg] Giovanni Mejia Other [facility] Other 09-01-2021 10:45-0500 Respiratory rate 16 /min Giovanni Mejia Other [facility] Other 09-01-2021 10:45-0500 SaO2% (BldA) [Mass fraction] 97 % Giovanni Mejia Other [facility] Other 09-01-2021 10:45-0500 Systolic blood pressure 124 mm[Hg] Giovanni Mejia Other [facility] Other Encounters Encounter Date Encounter Type Care Provider Facility Start: 10-22-2023 End: 10-22-2023 ambulatory Giovanni Mejia Other [facility] Other Start: 10-22-2023 Telephone encounter Giovanni Roberto [facility] [place] Start: 10-02-2023 ambulatory Giovanni Mejia Facility :[facility] Start: 09-16-2023 End: 09-16-2023 ambulatory Giovanni Mejia Other [facility] Other Start: 09-16-2023 Telephone encounter Giovanni Roberto G[facility] [place] Start: 09-12-2023 End: 09-12-2023 Departed Referred DO Giovanni Mejia Work Phone: [facility] [place] Work Phone: Start: 09-12-2023 End: 09-12-2023 ambulatory DO Giovanni Mejia Work Phone: [facility] Other Start: 09-12-2023 Office outpatient vi sit 15 minutes Giovanni Mejia [facility] [place] Start: 09-10-2023 End: 09-10-2023 ambulatory Giovanni Mejia Other [employer] Other Start: 09-10-2023 Telephone encounter Giovanni Gillespie [facility] Start: 09-02-2023 End: 09-02-2023 ambulatory Giovanni Mejia Other [employer] Other Start: 09-02-2023 Telephone encounter Giovanni Gillespie [facility] Start: 08-28-2023 End: 08-28-2023 ambulatory Giovanni Mejia Other [employer] Other Start: 08-28-2023 Telephone encounter Giovanni Gillespie [facility] [place] Start: 07-23-2023 End: 07-23-2023 ambulatory Giovanni Mejia Other [employer] Other Start: 07-23-2023 Encounter for genera l adult medical examination without abnormal findings Giovanni Poncemer [facility] Start: 07-23-2023 Periodic preventive med est patient 40-64yrs Giovanni Roberto [facility] Start: 07-19-2023 End: 07-19-2023 ambulatory Giovanni Michelle Roberto Facility:[facility] Start: 07-19-2023 End: 07-19-2023 ambulatory DO Giovanni Mejia Work Phone: [facility] Work Phone: Start: 07-19-2023 End: 07-19-2023 Patient encounter procedure DO Giovanni Mejia Work Phone: [facility] [place] Work Phone: Start: 06-06-2023 ambulatory ANASTASIA BERMUDEZ Faci lity:H1 Start: 05-20-2023 ambulatory ANASTASIA BERMUDEZ Faci lity:H1 Start: 04-03-2023 End: 04-03-2023 ambulatory Giovanni Mejia Other [employer] Other Start: 04-03-2023 Telephone encounter Giovanni Gillespie [facility] [place] Start: 03-19-2023 End: 03-19-2023 ambulatory Giovanni Mejia Other [employer] Other Start: 03-19-2023 Office outpatient vi sit 15 minutes Giovanni Poncemer [facility] [place] Start: 01-02-2023 End: 01-03-2023 ambulatory ANASTASIA BERMUDEZ Facility: Start: 12-31-2022 End: 12-31-2022 ambulatory Giovanni N Roberto Facility:[facility] Start: 12-31-2022 End: 12-31-2022 Admission to same day surgery center DO Giovanni Mejia Work Phone: [facility] Work Phone: Start: 12-31-2022 End: 12-31-2022 ambulatory DO Giovanni Mejia Work Phone: [facility] Work Phone: Start: 12-25-2022 End: 12-25-2022 ambulatory Lina Bustillo Other [employer] Other Start: 12-25-2022 Office outpatient vi sit 25 minutes Lina Bustillo [facility] Start: 12-17-2022 End: 12-17-2022 ambulatory Giovanni Mejia Other [employer] Other Start: 12-17-2022 Telephone encounter Giovanni Roberto Verna [facility] [place] Start: 11-05-2022 End: 11-05-2022 ambulatory Nathaniel Azevedo Other [employer] Other Start: 11-05-2022 Telephone encounter Nathaniel Binks [facility] [place] Start: 10-31-2022 End: 10-31-2022 ambulatory Lina Bustillo Other [employer] Other Start: 10-31-2022 Telephone encounter Lina Keny [facility] Start: 08-29-2022 End: 08-29-2022 ambulatory Giovanni Mejia Other [employer] Other Start: 08-29-2022 Office outpatient vi sit 15 minutes Lina Bustillo [facility] Start: 08-29-2022 Telephone encounter Giovanni Mejia [facility] [place] Start: 07-27-2022 End: 07-27-2022 ambulatory Giovanni Mejia Other [employer] Other Start: 07-27-2022 Telephone encounter Giovanni Mejia [facility] [place] Start: 07-18-2022 End: 07-18-2022 ambulatory Giovannilore Mejia Other [employer] Other Start: 07-18-2022 Encounter for genera l adult medical examination without abnormal findings Giovanni Mejia [facility] [place] Start: 07-18-2022 Periodic preventive med est patient 40-64yrs Giovanni Mejia [facility] [place] Start: 07-16-2022 End: 07-16-2022 ambulatory Giovanni Mejia Other [employer] Other Start: 07-16-2022 Telephone encounter Giovanni Mejia [facility] [place] Start: 07-10-2022 End: 07-10-2022 ambulatory DO Giovanni Mejia Work Phone: [facility] Work Phone: Start: 07-10-2022 End: 07-10-2022 Patient encounter procedure DO Giovanni Mejia Work Phone: [facility] [place] Start: 07-03-2022 End: 07-03-2022 ambulatory Giovanni Mejia Other [employer] Other Start: 07-03-2022 Telephone encounter Giovanni Gillespie [facility] [place] Start: 05-24-2022 End: 05-24-2022 ambulatory Giovanni Mejia Other [employer] Other Start: 05-24-2022 Telephone encounter Giovanni Gillespie [facility] [place] Start: 04-05-2022 End: 04-05-2022 ambulatory Nathaniel Roberto Carlos Other [employer] Other Start: 04-05-2022 Telephone encounter Nathaniel Azevedo [facility] [place] Start: 03-30-2022 End: 03-30-2022 ambulatory Lina Calvey Other [employer] Other Start: 03-30-2022 Office outpatient vi sit 10 minutes Lina Calvey [facility] Start: 02-21-2022 End: 02-21-2022 ambulatory Lina Calvey Other [employer] Other Start: 02-21-2022 Office outpatient vi sit 15 minutes Lina Calvey [facility] Start: 02-20-2022 End: 02-20-2022 ambulatory Giovanni Mejia Other [employer] Other Start: 02-20-2022 Telephone encounter Giovanni Gillespie [facility] [place] Start: 10-18-2021 End: 10-18-2021 ambulatory Giovanni Mejia Other [employer] Other Start: 10-18-2021 Telephone encounter Giovanni Gillespie [facility] [place] Start: 10-16-2021 End: 10-16-2021 ambulatory Giovanni Mejia Other [employer] Other Start: 10-16-2021 Telephone encounter Giovanni Gillespie [facility] [place] Start: 09-01-2021 End: 09-01-2021 ambulatory Giovanni Mejia Other [employer] Other Start: 09-01-2021 Office outpatient vi sit 15 minutes Giovanni Mejia [facility] [place] Start: 08-16-2021 End: 08-16-2021 ambulatory Giovanni Mejia Other [employer] Other Start: 08-16-2021 Telephone encounter Giovanni Gillsepie [facility] [place] Start: 08-03-2021 End: 08-03-2021 ambulatory Giovanni Mejia Other [employer] Other Start: 08-03-2021 Telephone encounter Giovanni Gillespie [facility] [place] Procedures Date Procedure Procedure Detail Performing Clinician Start: 12-31-2022 Screening colonoscopy D O Giovanni Mejia Work Phone: Plan of Treatment Date Care Activity Detail Author Start: 09-12-2023 Bacteria identified in Urine by Culture Urine Culture [facility] Start: 12-31-2022 [facility] Patient Education Hemorrhoids Colon Polyp s [facility] Work Phone: Immunizations Immunization Date Immunization Notes Care Provider Isai herndon 01-13-2021 COVID-19 Vaccine Moderna - Documentation Purposes Only Giovanni Roberto Other [employer] Other 12-16-2020 COVID-19 Vaccine Moderna - Documentation Purposes Only Giovanni Poncemer Other [employer] Other 11-23-2020 influenza, injectabl e, quadrivalent, contains preservative Giovanni Roberto Other [employer] Other Payers Date Payer Category Payer [facility] [[email or web address]] [id number] 1960 Unknown [id number] 1960 Unknown [id number] 1960 Unknown [id number] 1960 Unknown [id number] 1957 Self-pay [id number] [place] [id number] Private Health Insurance [facility] [id number] Unknown [id number] Unknown [id number] Unknown [id number] Worker's Compensation [employer] [id number] Worker's Compensation [id number] Social History Date Type Detail Facility Sex Assigned At [employer] Other Start: 11-04-2020 End: 12-31-2022 Tobacco smoking status NHIS Never smoked tobacco (finding) [facility] Start: 1960 Sex Assigned At Female [facility] Goals Date Patient Goal Desired Activity /State Clinical Notes 08-03-2021 to 10-03-2023 Note Date & Type Note Facility 10-03-2023 Note [id number] 09-16-2023 Evaluation note Encounter Date Diagnosis Assessment Notes Aug, Suspected UTI (ICD-10 - R39.89) [employer] Other 12-14-2023 Evaluation note* Encounter Date Diagnosis [...] she is improving in a few days. [employer] Other 10-24-2023 Evaluation note* Encounter Date Diagnosis [...] Medication monitorin g encounter (ICD-10 - Z51.81) [employer] Other 07-05-2023 Evaluation note* Encounter Date Diagnosis Assessment Notes Treatment Notes Treatment Clinical Notes Mar, Migraine without aura and without status migrainosus, not intractable (ICD-10 - G43.009) [employer] Other 06-20-2023 Evaluation note* Encounter Date Diagnosis [...] Medication monitorin g encounter (ICD-10 - Z51.81) [employer] Other 04-05-2023 NotePROCEDURE: XR FOOT RT MIN 3 VIEWS COMPARISON: None. HISTORY: Pain in right foot FINDINGS: BONES:No acute fracture or dislocation. Severe degenerative changes of the first metatarsal-phalangeal joint with vbat-oc-nasn articulation, marginal osteophyte formation and subchondral lytic changes SOFT TISSUES:Negative. No visible soft tissue swelling. EFFUSION:None visible. OTHER: Negative. IMPRESSION: Severe osteoarthritis first metatarsal phalangeal joint Electronically authenticated by: NISHA VANESSA Date: 2023-01-02 15:46[id number] History and physical note Author Ramirez Bassett [facility] December 31, 2022 9:07am Note Date/Time December 31, 2022 9:07 am [facility] [address] [place] [address] Gastroenterology H&P Signed Patient: Luz Maria Scales MR# : [id number] : 1960 Acct:[id number] Age/Sex: 62 / F Adm Date: 3 Loc: Room: Type: [facility] Attending Dr: Ramirez Bassett MD Copies to: Ramirez Bassett MD Giovanni Martinez Roberto ~ Date of Service: 12/31/2022 HISTORY & [...] <Electronically signed by Ramirez Bassett MD> 12/31/22906 [facility] Work Phone: [phone] 395-714604-03-2023 [facility] note* Encounter Date Diagnosis Assessment Notes [...] joint of right hand (ICD-10 - M18.11) [employer] Other 02-06-2023 Evaluation note* Encounter Date Diagnosis Assessment Notes Treatment Notes Treatment Clinical Notes Oct, Migraine without aura and without status migrainosus, not intractable (ICD-10 - G43.009) [employer] Other 11-30-2022 Evaluation note* Encounter Date Diagnosis [...] [facility] injected with cortisone under sterile technique [employer] Other 10-19-2022 Evaluation note* Encounter Date Diagnosis [...] Jun, Medication monitoring encounter (ICD-10 - Z51.81) [employer] Other 08-25-2022 Evaluation note* Encounter Date Diagnosis Assessment Notes Treatment Notes Treatment Clinical Notes Apr, Migraine without aura and without status migrainosus, not intractable (ICD-10 - G43.009) [employer] Other 07-07-2022 Evaluation note* Encounter Date Diagnosis Assessment Notes Treatment Notes Treatment Clinical Notes Mar, Restless leg (ICD-10 - G25.81) [employer] Other 07-01-2022 Evaluation note* Encounter Date Diagnosis [...] joint of right hand (ICD-10 - M18.11) [facility] Other 05-25-2022 Evaluation note* Encounter Date Diagnosis Assessment Notes Treatment Notes Treatment Clinical Notes January, Trigger ring finger of right hand (ICD-10 - M65.341) January, Carpal tunnel syndro me of left wrist (ICD-10 - G56.02) January, Trigger middle finge r of left hand (ICD-10 - M65.332) January, Primary osteoarthrit is of first carpometacarpal joint of right hand (ICD-10 - M18.11) [employer] Other 01-19-2022 Evaluation note* Encounter Date Diagnosis Assessment Notes Treatment Notes Treatment Clinical Notes Sep, Restless leg (ICD-10 - G25.81) [facility] Other 01-17-2022 Evaluation note* Encounter Date Diagnosis Assessment Notes Treatment Notes Treatment Clinical Notes Sep, Restless leg (ICD-10 - G25.81) [employer] Other 12-03-2021 Evaluation note* Encounter Date Diagnosis [...] Aug, Duodenal ulcer (ICD- 10 - K26.9) [employer] Other 11-04-2021 Evaluation note* Encounter Date Diagnosis Assessment Notes Treatment Notes Treatment Clinical Notes Jul, Migraine without aura and without status migrainosus, not intractable (ICD-10 - G43.009) [employer] Other Evaluation noteNo InformationNort [facility] Other Evaluation noteNo assessment information available [facility] Work Phone: History general Narrative - Reported* Type Description Date Medical History hypercholesterolemia Medical History Esophageal reflux Medical History migraine headache Medical History restless leg syndrome Surgical History (R) rotator cuff tear repair Surgical History right carpal tunnel release Hospitalization History See Above Hospitalization History ulcers [employer] Other History general Narrative - Reported* Type Description Date Medical History hypercholesterolemia Medical History Esophageal reflux Medical History migraine headache Medical History restless leg syndrome Surgical History (R) rotator cuff tear repair Surgical History right carpal tunnel release Surgical History big toe fusion right foot 06/06 Hospitalization History See Above Hospitalization History ulcers [facility] Other Hospital Discharge instructions Additional Instructions DISCHARGE [...] years. -Follow up with PCP. -Office number [phone].[facility] Work Phone: Reason for visit NarrativeReferral update - [facility] Other Chief Complaint and Reason for Visit [...] Left Handrt hip painTramadol, Requipawvrefillrefillpossible UTIpossible UTIUrine Cxrefill Care Teams (unrecognized sec tion and content) Team Status: Inactive Member Role Status Dates Giovanni Mejia , DO Primary Care Provider, Attending Provider Active Team Status: Active Member Role Status Dates Giovanni Mejia , Primary Care Provider Active Team Status: Inactive Member Role Status Dates Giovanni Mejia , Primary Care Provider Active Ramirez Bassett MD Attending Provider Active Team Status: Inactive Member Role Status Dates Giovanni Mejia , DO Attending Provider Active Goals (unrecognized section and content) Goals may be documented in a n alternate section INFORMATION SOURCE (unrecogn ized section and content) DATE CREATED AUTHOR 01/31/2023 [facility] DATE CREATED AUTHOR AUTHOR'S ORGANIZ ATION 09/20/2023 [facility] DATE CREATED AUTHOR AUTHOR'S ORGANIZ ATION 12/13/2023 [facility] FOR RECORDS PERTAINING TO PATIENTS WHO ARE [...] BE BASED ON THE PRIMARY CLINICAL RECORDS. [facility] [employer] [facility]. provides no warranty or guarantee of the accuracy or completeness of information in this document.
== END 2023-12-18 08:50 | disposition home or self-care (01) ==
LOC: RAD 08:49
PROVIDERS: Visit Provider Podiatrist Foot & Ankle Surgery
DX: M79.671 Pain in right foot (principal); Z98.890 Other specified postprocedural states
CPT/HCPCS: 73630

== ENCOUNTER 2024-04-14 15:11 | Outpatient (OUT) | payer BC, SELFPAY ==
--- NOTE | 2024-04-14 | XR_ITS ---
The [address] [address] Patient Name: JAGDISH SCALES MRN: [id number] date: 1960 Sex: F Assigned Patient Location: Current Patient Location: Accession/Order Number: [id number] Exam Date: 04/14/2024 15:13 Report Date: 04/16/2024 04:20 At the request of: ANASTASIA BERMUDEZ Procedure: XR foot RT min 3V PROCEDURE: XR foot RT min 3V HISTORY: RIGHT FOOT PAIN COMPARISON: XR foot right 12/18/2023 FINDINGS: BONES:Mechanical fusion the first metatarsophalangeal joint via dorsal plate and screws. No hardware fracture loosening. No bone fracture dislocation. SOFT TISSUES:No visible soft tissue swelling. EFFUSION:None visible. OTHER: Negative. XR/XR foot RT min 3V IMPRESSION: 1. Stable surgical changes without evidence of hardware failure or change in alignment. Electronically authenticated by: JEANIE EMERSON Date: 04/16/2024 04:20
--- OUTSIDE RECORDS SUMMARY | 2024-04-14 15:33 | XMS_ITS | CCD ---
Author Organization [facility] Care Team Providers Care Site Supervisor Name Role Phone Giovanni Mejia Unavailable GuanakoYissel mercadoen Unavailable Roberto Giovanni Unavailable Nathaniel Azevedo Unavailable Roberto, DO Giovanni Martinez Primary Care Provider Roberto, DO Giovanni Martinez Attending Provider Roberto, DO Giovanni Martinez Primary Care Provider [phone] MD Ramirez Bassett Attending Provider ANASTASIA BERMUDEZ Admitting Unavailable ANASTASIA BERMUDEZ Attending Unavailable ANASTASIA BERMUDEZ Admitting Unavailable ANASTASIA BERMUDEZ Attending Unavailable ANASTASIA BERMUDEZ Admitting Unavailable [place], DR NISHA Keane Consulting Unavailable ANASTASIA BERMUDEZ Attending Unavailable ANASTASIA BERMUDEZ Consulting Unavailable Roberto, DO Giovanni Martinez Primary Care Provider Roberto, DO Giovanni Martinez Attending Provider [phone] Roberto, DO Giovanni Martinez Primary Care Provider [phone] Roberto, DO Giovanni Martinez Attending Provider [phone] Roberto, Giovanni N Admitting Unavailable Roberto, Giovanni N Attending Unavailable Roberto, Giovanni N Primary Care Unavailable Roberto, Giovanni N Admitting Unavailable Roberto, Giovanni N Attending Unavailable Roberto, Giovanni Martinez Primary Care Unavailable Ramirez Bassett Attending Unavailable Ramirez Bassett Admitting Unavailable Maryan Rivera Admitting Unavailable Maryan Rivera L Attending Unavailable Giovanni Mejia Primary Care Unavailable Allergies Allergy Classification Reported Allergen(s) Allergy Type Date of Onset Reaction(s) Facility (1 source) No Known Medication Allergies; Translations: [No Known Medication Allergies] Propensity to adverse reactions to drug (disorder) [facility] Repository Medications Current Medications Medication Drug [...] Active 10 MG PO Every morning July 11, 2020 12:00am biotin 10 mg oral capsule (5 sources) Start: 07-11-2020 take 00332 ug by mouth twice daily Biotin Active 47540 MCG PO Twice daily July 11, 2020 12:00am cholecalciferol 0.05 mg oral tablet (5 sources) Vitamin D Start: 07-11-2020 take 1 tablet by mouth once daily Cholecalciferol (Vitamin D3) (Vitamin D3) 50 mcg (2,000 unit) Tablet Active 50 MCG PO Daily July 11, 2020 12:00am FLUoxetine 20 mg oral capsule (20 sources) Serotonin Reuptake Inhibitor Start: 07-11-2020 End: 02-20-2024 take 20 mg by mouth once daily in the morning Fluoxetine Active 20 MG PO Every morning 90 90 February 20, 2024 11:28am take 1 capsule by mouth once guillermo ly FLUoxetine HCl 20 MG take 1 capsule by mouth once daily for 90 Active Multivitamin preparation (5 sources) Start: 07-11-2020 take 1 tablet by [...] capsule (20 sources) Proton Pump Inhibitor Start: 12-16-2023 take 1 capsule by mouth once daily Omeprazole Active 0 .ROUTE .COMPLEX 90 December 16, 2023 10:33am take 1 capsule 30 MINUTES BEFORE MORNING MEAL orally once daily Start: 07-11-2020 End: 12-16-2023 take 40 mg by mouth once daily Omeprazole Discontinued 40 MG PO Daily July 11, 2020 12:00am December 16, 2023 10:33am 24 hr propranolol hydrochloride 60 mg extended release oral capsule (20 sources) beta-Adrenergic Thierno Start: 07-11-2020 take 60 mg by mouth at bedtime Propranolol Active 60 MG PO Bedtime July 11, 2020 12:00am rOPINIRole 1 mg oral tablet (20 sources) Nonergot Dopamine Agonist Start: 07-11-2020 take 1 mg by mouth once daily at bedtime Ropinirole Active 1 MG PO Daily at bedtime July 11, 2020 12:00am take 1 tablet by mouth once wilton [...] (20 sources) Opioid Agonist Start: 11-06-2022 take 50 mg by mouth once daily Tramadol Active 50 MG PO Daily December 31, 2022 12:00am Start: 05-24-2022 take 1 tablet by kurt [...] Discontinued 5 0 MG PO Daily July 11, 2020 12:00am July 18, 2020 8:06am Completed/Discontinued Medications Medication Drug Class(es) Dates Sig (Normalized) Sig (Original) cephalexin 500 mg oral capsule (5 sources) Cephalosporin Antibacterial Start: 07-18-2020 End: 12-31-2022 take 1 capsule by mouth every eight hours Cephalexin (Keflex) 500 mg capsule Discontinued 500 MG PO Q8H 15 July 18, 2020 12:00am December 31, 2022 8:15am diclofenac sodium 20 mg/ml topical solution (20 sources) Nonsteroidal Anti-inflammatory Drug Start: 09-01-2021 Pennsaid 2 % 2 pumps Externally Twice a day for 30 day(s) Aug, Not-Taking Start: 09-01-2021 Pennsaid 2 % p ea-sized amount Externally Twice a day Aug, Active Magnesium (5 sources) Start: 07-11-2020 End: 12-31-2022 take 250 [...] 12:00am oxyCODONE hydrochloride 5 mg oral capsule (5 sources) Opioid Agonist Start: 07-18-2020 End: 12-31-2022 take 5-10 mg by mouth every six hours Oxycodone Discontinued 5 - 10 MG PO Q6H 40 8 July 18, 2020 December 31, 2022 8:16am triamcinolone acetonide 40 mg/ml injectable suspension (20 [...] IN RIGHT FOOT] Onset: 01-02-2023 Episodic Other connective tissue disease (1 source) Hand pain; Translations: [Pain in left hand] 02-26-2024 Episodic Other connective tissue disease (1 source) Pain in thumb ; Translations: [Pain in left finger(s)] 02-21-2024 Episodic Other connective tissue disease (2 sources) Triggering of digit; Translations: [Trigger finger, right ring finger] 02-21-2024 Episodic Other connective tissue disease (1 source) Pain in left hand; Translations: [Pain in limb] 02-26-2024 Episodic Other hereditary and degenerative nervous system conditions (20 sources) Restless legs; Translations: [Restless legs syndrome] Chronic Other hereditary and degenerative nervous system conditions (5 sources) Restless legs syndrome Onset: 10-16-2021 Resolved: 04-05-2022 Chronic Other nervous system disorders (20 sources) Carpal tunnel syndrome of right wrist; Translations: [Carpal tunnel syndrome, right upper limb] 02-26-2024 Chronic Other nervous system disorders (20 sources) Carpal tunnel syndrome; Translations: [Carpal tunnel syndrome, left upper limb] 11-04-2020 Chronic Other nervous system disorders (5 sources) Carpal tunnel syndrome, left upper limb; Translations: [Carpal tunnel syndrome] Onset: 02-21-2022 Resolved: 03-30-2022 Chronic Other nervous system disorders (1 source) Lesion of sciatic nerve, right lower limb Chronic Other nervous system disorders (1 source) Carpal tunnel syndrome of left wrist; Translations: [Carpal tunnel syndrome, left upper limb] 02-21-2024 Chronic Other nervous system disorders (1 source) Numbness of hand; Translations: [Anesthesia of skin] 02-26-2024 Episodic Other nervous system disorders (1 source) Anesthesia of skin; Translations: [Disturbance of skin sensation] 02-26-2024 Episodic Sprains and strains (1 source) Sprain of other ligament of left ankle, initial encounter Episodic Unclassified (1 source) Encounter for screening for malignant neoplasm of colon; Translations: [Encounter for screening for malignant neoplasm of colon] Onset: 12-31-2022 Results Test Name Value Interpretation Reference Range Facility Physical Therapy Noteon 12-29 Physical Therapy Note [id number]#1.00 [facility] Coding Summaryon 10-07-2023 [facility] RgbxmzhqFOf6ySr+PGhlY WQ+NZ3YDQIaD59xgOSpbK 2tS3AHVGiZJlgeBLLXFHh CMeDeosXvXX1ohJFtFWOc IC8+OO8pZFEgYszwyBWda 4Y3cRB3M80ghq1vIEnjpM P9AJLkVpHapinpr8ayeDp 6IDcuNmluOyBt EUUfhK10IYD4wI40Jm72q ARmhSIou8tjcHx0SjQpIN AuNCG6bTmzOPhpp6KeYFH qQ78hhXWqm9P3 JGIwnUabxPSlAwZywAO2l M2kRHqdwhnjq7fdtqhxWq j0xi16fLBwo0X2jDK1A4F qdoO8PRWjzTUh ComreNTPqN8rjwxzm5xiz exuTaRiTXPbZUv6HFy9ES XagYrcQhSjCA28LOL4LDP vzoEgR1TuXYId iIrgSuW9p8L0Ug0JJ4DNF sypG7YPRKDIIWtrpSX+PC 28jh56N9QcBrpkZeg5VYK xAIZ7kSY7nW7g PRQuZWkug0Z7tHY6S3Uvx xTclp8ei7reQVYyJUvoF0 6saQOyo5O6FQNzuXV2ZJB ybFifLzFyvT56 Oyc+OFAvpYgli0VpLswmz 3xjc4gwrEu9QagiMVPdkc BvjOzkKUU8j6MkUs0eHKI uhRF2dHW3mO1l IaKqQhJ9WLouO012HsMrt APhMuexC99wR4GbkGQ+PH ToDgg8FXMibAavZA0aX4A hZGRpbmctbGVm sDczLV8wNEQjmtgjLRCvv H1nOWRpE8j5CeOrYrL6KP okY4DrOSSquesnSq85uF2 aIbEiYxQ7FDgo T0HzuoO7YDTrfYMnSOojI DO7U09br1G9VNJhTAOhCU K8lCW0vJ2xwQjwawpmpZX mdDsgdmVydGlj YEwrYGyeK216NRVrkNfxP kNvZGluZyBEYXRlOiAgMD EvMDgvMjAyNDwvdGQ+PHR aOKQ6tTusNQMy yLVjZEgfQo2kgDdwjKqjL Z5uMEMvawcfDLGzzE0rQF ApdUVcyCafUL3zIONpjwu cp140DbLqJKP8 ZZNtbNAcH3HiaM2tZvQyS CCgMEHdO1XxqPKjQKlzB3 29CAqxPjU7BMGqybTiZ9X sLWFsaWduOiB0 g5K3Ov3Vp1NyzbloA6Bsh YFoOtWnTyatMQm7N2AjDq wvdHI+RM31UEPsCZ82LEh 8YLQ8oBwuXPnp CTElM9MfeI5gLrEaQUFqI GRkOyc+PHRhYmxlIHdpZH RoPScxMDAlJyBzdHlsZT0 yDl3jOLFsLFQi rFjihHXiHtIsl7ezNCEiF NymXA6ynOxpB7SouMH7DG Wpf3m4Lp19P60yZ5MpzUE +SGCilCX9xTU7 rX8kGoAvIpO5TOypQ117E yWogYQnYdcub0wky7ugsZ p8CqM1WQKgsaLznYkiAFU 8j3EpOc53R04f IHdpZHRoPSIxNSUiIHZhb Dfmgl2myV4pMr8+PGNvbC I3hQO7dD6vBrBwVkL0TFt aZ085KdPiaAJi Ezvfb1nzj2wmyLl2PlTgG FKzkfKrqYzaJDD4j5KrTf 13J2JhuNwkt9LmDzo9sy4 8nJZvw9E4wXA1 V2FvMXUpdewpeJNyyTdgJ Q6xHNWhozlnVPUsbV5pRU UfH5k7PsGvOqA2JYrbK8S karZ0VXCbsORd KWRnzLOBmQ8kfffhi1vnh wyxOeLxOSNlVCw4KCz1KD BsuNyvUmYhELW3GeZ1NAR 2tTMzlI0liKoj nfcdnC4vHim+IGX6uUYgx HZXUJ8vNnvvvYH+PHRkIH Z5vQfgLJcdPGZxtO6tRXJ uE8m1GlTtIuH8 YMkbR6LndgM1OHQbkMLaE IUibZFZkJ5jjuxls4frir mtBoSyVDBwSEg5FQv5AED saWduOiBsZWZ0 LsU5GLT6eGDcdM4zaKswo msfzW2bQwq+QmlydGggRG Y8YFa7M4UdSif8ZTVcvGb yNV1epSMzDNso Uj9pqRnsrTsvOA8dOUKpc qmju796HbSpc6cfBZSjwC PcBAlxUJN2N79io4N6IOP cAYSbDYO6sIY8 qK9maSyoqzfwhXDftDrxt cVbjJbkRPbaQDbtO284GG AkpRkuLqQyQWs9W7TlGlz 0OVRfhAfsJH5x dRRrPPuxXj5iuRvpqMgeF X0qZCVgawhor165VhJmb4 inOMXjkZVnFHuhAOY3S61 xu9U5WHHrOKEb WGY1nRP0yV8dwUtltkzhv GVmdDsgdmVydGljYWwtYW bdC755EZXmfUsaPsZsjIi 2K4OyHks0QVSu sDbrJG3alTQiQVrdOh6zi ZcqtUdgXQ3vDEQdjczcx5 89KzOwk9tpWVIzbLNjZKa jSGS8G67fe3Q8 NERuAPVoQUP1iEO5yW9xe GlnbjogbGVmdDsgdmVydG ejZPfhDBemN147NUDkcVr nPlBhdGllbnQg UDjpHHf5U7ZmYcbswSU+P G19VFEaXV82qDXqmZBvp6 xhlPo0PsJmLCThTTZ8kFw vPCcty9VzFLTe I96ydEViv1Z4FULbsMfvr OFiCsIqvYS8gX7xWMaago hzg6knuzquXmopl7swqw8 1jC96K78cPOca ZHRoPSIzMCUiIHZhbGlnb t0naF7rCf8+CGVxbDS2bB U0eU6fRXUtJhM3VQxeG88 9InRvcCIvPjxj x8xcy5efpZw2OvH9LPLwz tQdqDptAHN3i1IgOf01H7 9sIHdpZHRoPSIyMCUiIHZ roPznbh0nlD1w Ii8+JLStoYX8vID7zA5lW aOwJdT2HDdhG208XgSjsR CiYnifJ65qI3VvkYA+PHR jJes3KRDupAew FN3puZOySYbtFl1oQPV2N vQyIaXcYSvrM9GvARKkta raolgpkPT7IBTvTKLgkE5 6Ew7edJgvDYBk sJLBdQ6iqmanh9wjxtsnY rEoYXGhTAr2VCe3DDWhzP sjQhEmOCW4HoQ6TFI6tEW gqL0elEmlxgcr xE0wN1RiMIWgbnpxFo36p C6zZyDgLmC4WLeaDod+UE BCBG5INJSBEQOYNS4GAPU NXgZBGU40UP34 eOLge2R2mYF7V1VgDBOgg vtnbcqwoEX6QCQbCXDqvI 80rQQxOGcgDg9cr5Y9s73 5NMOaRDQxeJ41 Yx3quJnbXTReqIONqZ9le zlkr4dsogebWhGsJIJtGZ j3ZBz6BIHanFxyRbJpHLM 7VoD0JNP2cHSp tI5zcLplhtvstD7xIsd+M MqaOFLxQLq5BgkorCK+PH PaSAX4zQzmQIacDUZtiU1 bPKTwT8w3JtPu ZnN8TVyfE5NwMLSwuqwtS u01cZ7pIvEjJqP3SHdkB6 FurrR2UBEyhIHeCSnfUYV 4A81ws3T2SHLu YIJpHPT4zEQ7kV1ctDado jogbGVmdDsgdmVydGljYW psJTczK558INTloCbiCjD dZVrqSISvPB29 RU01uWKde6B2tAQ0S1LtJ ZBnpaahohfdmNF4ZERuNR InlI24rAVzSUmvJb7jd4S 6m662ZDVrGZKm wH84Hk5mwLfdODWzdANAl H4ovbudz3rktpgtXyQxEE CyIDp4UJz0GFXxlYclIaV qSKT7JsO6SMX5 nCRltR6nqZloxttlkI7yD yc+DwUTDJoLIJ30FT38bN Enb6F3dGZ9C4YbSGGzoia jynybrGC5TDAh OPUhmO32kCErDRflIz2st 3W2t028ABRmTOWqoS45Za 7tuTkiVZHkxAJLeZ4fmwc cx5cvxlyyRcNc FEFgQSn7TRg9PNHbvVmlE yAnQMZ5NxV9DDA2xMLwtR 0geNdylrpgbT2kDce+UmV miDIomJ4uXF42 nRQmpCtoebE1P4XpHstvb HI+EY70QFLmQJ38mTDaiM Tbe2utyUl7HkWuCAGlDFJ 2uOjfBTnow5Vz RJPnT58idGTcu3J0XWEnx ExitFVeEyFatFY9wC9xNQ ejqfixv1xizwadMutsr6z obw62zU57Y17u IHdpZHRoPSIzMCUiIHZhb Gtrvx3ywY4qSl3+PGNvbC U2jDH3eU1tIcZeQuG2AWa aD017HvWrzNFj Xkjyo4jkd6ddsIw8UvBmA TKvpkOxoBfqAIQ6u1SpJm 71K00rHHriBZHlJADsMKY dSXOmlPxjpg0q uX8aPq3+MA1hu3mvac75g D48dHI+ICMaTHG4vIluMK mxJDKfcS3qCZdqOdP1KTJ dPuFnnQ39xSKq HKdoYj8raXtujRvhID3bW EPazcgpr049CoGwu0lxXU AsvUTrPJafPIG2Q06lo7Q 5MNSmTFUqXYT3 rLS6kH4tcBqbccnzfCZsl DsgdmVydGljYWwtYWxpZ2 40WHCobDqoUgWtxKYeF6d psiRMKC3fKhlw dGQ+BXOwRZG0vKehSPucN AZdkO6rBXDpH0n8DtZxZt Y6SBnjH4IuriL6QONjgRG tQIIekEFUjM2l hmzsl7ncknptUhLkUSRcW Jt3MRf3MFCblCnlDtRnIU X1XrE5SUV7fBVccD3waJu icsvtvJ8eRto+ RklOOjwvdGQ+ZVTiPDE0e WfzJKfpALWnqS1kLGFcN7 c2SkGnJfE8KRznS2RwweJ 6IGJvbGQgMTBw bOGAhT8eexdhk5hfbkosP rLfPUSnQNl6TJr9FKTcyZ lzCjFkAUP7DgD0OMI1bSO npN5ziFxplgbu hC4uOkb+TVJOOjwvdGQ+P FPlDUR7rGhbFSezTMQljD 1yEFVoC9x8NnSuKvI7GPx hT9QuhwG7ZALl yICxXPNuyEIQxE7bdpxeu 6cpfqtbGlMyDRGsFSy9JL u8AGCrsZttCyXdQCX1TwH 9RMO1pBXahR6o xMqhaaljqH6rQxs+UGF5Z KM4GB49NQ79Y7HhNavrpI FibGU+PHRhYmxlIHdpZHR oPScxMDAlJyBz dHl (more content not included)... [facility] Provider Orderson 09-19-2023 Provider Orders [id number] #1.00OTGTIFF [facility] Provider Orders [id number] #1.00OTGTIFF [facility] Urinalysis - AUTOMATEDon Appearance (U) cloudy [employer] Other Bilirubin Ql (U) Negative Diassess Other Color (U) yellow [employer] Other Glucose Ql (U) Negative [employer] Other Hemoglobin Ql (U) trace Sifteo Other Ketones Ql (U) Negative [employer] Other Leukocyte esterase Test strip Ql (U) moderate [employer] Other Nitrite Ql (U) Negative [employer] Other pH (U) 6.0 [pH] [employer] Other Protein Ql (U) 100 mg/dl [employer] Other Specific gravity (U) [Rel density] 1.025 [employer] Other Urobilinogen (U) [Mass/Vol] 1.0 mg/dL [employer] Other Urinalysis - AUTOMATED No rt [employer]fly Other Urine Cultureon 09-12-2023 Bacteria identified Cx Nom (U) Reason for Exam Dysuria Urine ORGANISM: Klebsiella pneumoniae (O:KLEPNE) Kotlik Count >100,000 Aerobic MAHIN Charge (NMIC56) ---- [...] RESISTANT TO ALL B-LACTAM DRUGS. PERFORMED BY: [place] [address] PATHOLOGIST SERICULTURIST MANISH SIDHU M.D. [facility] Comment on above: Performed By: #### C UU #### [address] Alanine aminotransferase [En zymatic activity/volume] in Serum or PlasmaOrdered By: Giovanni Mejia on 07-19-2023 ALT [Catalytic activity/Vol] 22 U/L 7-52 [facility] Albumin [Mass/volume] in Ser um or Plasma by Bromocresol green (BCG) dye binding methoOrdered By: Giovanni Mejia on 07-19-2023 Albumin BCG dye [Mass/Vol] 4.1 g/dL 3.5-5.7 [facility] Alkaline phosphatase [Enzyma tic activity/volume] in Serum or PlasmaOrdered By: Giovanni Mejia on 07-19-2023 ALP [Catalytic activity/Vol] 192 U/L 34-104 [facility] Aspartate aminotransferase [ Enzymatic activity/volume] in Serum or PlasmaOrdered By: Giovanni Mjeia on 07-19-2023 AST [Catalytic activity/Vol] 26 U/L 13-39 [facility] Basophils Auto (Bld) [#/Vol] Ordered By: Giovanni Mejia on 07-19-2023 Basophils (Bld) [#/Vol] 0.0 10*3/uL 0.0-0.2 [facility] Basophils/100 WBC Auto (Bld) Ordered By: Giovanni Mejia on 07-19-2023 Basophils/100 WBC (Bld) 0.7 % . F [facility] Bilirubin.total [Mass/volume ] in Serum or PlasmaOrdered By: Giovanni Mejia on 07-19-2023 Bilirubin [Mass/Vol] 0.7 mg/dL 0.3-1.0 [facility] Calcium [Mass/volume] in Ser um or PlasmaOrdered By: Giovanni Mejia on 07-19-2023 Calcium [Mass/Vol] 9.8 mg/dL 8.6-10.3 [facility] Carbon dioxide, total [Moles /volume] in Serum or PlasmaOrdered By: Giovanni Mejia on 07-19-2023 CO2 [Moles/Vol] 32.5 mmol/L 21.0-31.0 [facility] Chloride [Moles/volume] in S jeremy or PlasmaOrdered By: Giovanni Mejia on 07-19-2023 Chloride [Moles/Vol] 104 mmol/L 98-107 [facility] Cholesterol [Mass/volume] in Serum or PlasmaOrdered By: Giovanni Mejia on 07-19-2023 Cholesterol [Mass/Vol] 169 mg/dL 140-200 [facility] Comment on above: Chol less than 200 m g/dl low riskChol 201-239 mg/dl borderline riskChol 240 mg/dl and greater high risk Cholesterol in LDL Calc [Mas s/Vol]Ordered By: Giovanni Mejia on 07-19-2023 Cholesterol in LDL [Mass/Vol] 89 mg/dL 0-100 [facility] Comment on above: LDL ATP III CLASSIFI CATIONLDL less than 100 mg/dL OptimalLDL 100-129 mg/dL Near or above optimalLDL 130-159 mg/dL Borderline highLDL 160-189 mg/dL HighLDL greater than 189 mg/dL Very high Cholesterol in VLDL Calc [Ma ss/Vol]Ordered By: Giovanni Mejia on 07-19-2023 Cholesterol in VLDL [Mass/Vol] 21 mg/dL [facility] Complete Blood Count Auto Di ffon 07-19-2023 Basophils (Bld) [#/Vol] 0.0 10*3/uL Normal 0.0-0.2 [facility] Comment on above: Order Comment: Reaso n for Exam Mixed hyperlipidemia;Medication monitoring encounter Result Comment: PERF ORMED BY: [place] [address] PATHOLOGIST SERICULTURIST MANISH SIDHU M.D. Performed By: #### C MP, CBC, LIPID #### [facility] [address] [place] [address] Basophils/100 WBC (Bld) 0.7 % Normal . [facility] Comment on above: Order Comment: Reaso n for Exam Mixed hyperlipidemia;Medication monitoring encounter Performed By: #### C MP, CBC, LIPID #### [facility] [address] [place] [address] Eosinophils (Bld) [#/Vol] 0.2 10*3/uL Normal 0.0-0.45 [facility] Comment on above: Order Comment: Reaso n for Exam Mixed hyperlipidemia;Medication monitoring encounter Performed By: #### C MP, CBC, LIPID #### [facility] [address] [place] [address] [place] Eosinophils/100 WBC (Bld) 3.9 % Normal . [facility] Comment on above: Order Comment: Reaso n for Exam Mixed hyperlipidemia;Medication monitoring encounter Performed By: #### C MP, CBC, LIPID #### [facility] [address] [place] [address] Erythrocyte distribution width (RBC) [Ratio] 13.8 % Normal 11.9-15.3 [facility] Comment on above: Order Comment: Reaso n for Exam Mixed hyperlipidemia;Medication monitoring encounter Performed By: #### C MP, CBC, LIPID #### [facility] [address] [place] [address] Hematocrit (Bld) [Volume fraction] 37.5 % Normal 34.0-46.4 [facility] Comment on above: Order Comment: Reaso n for Exam Mixed hyperlipidemia;Medication monitoring encounter Performed By: #### C MP, CBC, LIPID #### [facility] [address] Hemoglobin (Bld) [Mass/Vol] 12.6 g/dL Normal 11.8-15.4 [facility] Comment on above: Order Comment: Reaso n for Exam Mixed hyperlipidemia;Medication monitoring encounter Performed By: #### C MP, CBC, LIPID #### [facility] [address] Lymphocytes (Bld) [#/Vol] 1.3 10*3/uL Normal 1.00-4.8 [facility] Comment on above: Order Comment: Reaso n for Exam Mixed hyperlipidemia;Medication monitoring encounter Performed By: #### C MP, CBC, LIPID #### [facility] [address] Lymphocytes/100 WBC (Bld) 23.5 % Normal . [facility] Comment on above: Order Comment: Reaso n for Exam Mixed hyperlipidemia;Medication monitoring encounter Performed By: #### C MP, CBC, LIPID #### [address] MCH (RBC) [Entitic mass] 29.8 pg Normal 24.7-34.3 [facility] Comment on above: Order Comment: Reaso n for Exam Mixed hyperlipidemia;Medication monitoring encounter Performed By: #### C MP, CBC, LIPID #### [address] MCV (RBC) [Entitic vol] 88.4 fL Normal 80-100 F [facility] Comment on above: Order Comment: Reaso n for Exam Mixed hyperlipidemia;Medication monitoring encounter Performed By: #### C MP, CBC, LIPID #### [facility] [address] [place] [address] [place] Mean Corpuscular HGB Conc 33.7 g/dL Normal 32.0-35.0 [facility] Comment on above: Order Comment: Reaso n for Exam Mixed hyperlipidemia;Medication monitoring encounter Performed By: #### C MP, CBC, LIPID #### [place] [address] [place] Monocytes (Bld) [#/Vol] 0.5 10*3/uL Normal 0.0-0.8 [facility] Comment on above: Order Comment: Reaso n for Exam Mixed hyperlipidemia;Medication monitoring encounter Performed By: #### C MP, CBC, LIPID #### [facility] [address] [place] [address] [place] Monocytes/100 WBC (Bld) 8.4 % Normal . F [facility] Comment on above: Order Comment: Reaso n for Exam Mixed hyperlipidemia;Medication monitoring encounter Performed By: #### C MP, CBC, LIPID #### [facility] [address] [place] [address] [place] Neutrophils (Bld) [#/Vol] 3.4 10*3/uL Normal 1.8-7.7 [facility] Comment on above: Order Comment: Reaso n for Exam Mixed hyperlipidemia;Medication monitoring encounter Performed By: #### C MP, CBC, LIPID #### [facility] [address] [place] [address] [place] Neutrophils/100 WBC (Bld) 63.5 % Normal . [facility] Comment on above: Order Comment: Reaso n for Exam Mixed hyperlipidemia;Medication monitoring encounter Performed By: #### C MP, CBC, LIPID #### [facility] [address] [place] [address] [place] NRBC% 0.1 /100{WBC} Normal 0-0.5 [facility] Comment on above: Order Comment: Reaso n for Exam Mixed hyperlipidemia;Medication monitoring encounter Performed By: #### C MP, CBC, LIPID #### [facility] [address] [place] [address] [place] Platelet mean volume (Bld) [Entitic vol] 8.8 fL Normal 6.3-10.7 [facility] Comment on above: Order Comment: Reaso n for Exam Mixed hyperlipidemia;Medication monitoring encounter Performed By: #### C MP, CBC, LIPID #### [facility] [address] [place] [address] [place] Platelets (Bld) [#/Vol] 172 10*3/uL Normal 150-450 [facility] Comment on above: Order Comment: Reaso n for Exam Mixed hyperlipidemia;Medication monitoring encounter Performed By: #### C MP, CBC, LIPID #### [facility] [address] RBC (Bld) [#/Vol] 4.24 10*6/uL Normal 3.60-5.00 [facility] Comment on above: Order Comment: Reaso n for Exam Mixed hyperlipidemia;Medication monitoring encounter Performed By: #### C MP, CBC, LIPID #### [facility] [address] WBC (Bld) [#/Vol] 5.4 10*3/uL Normal 3.8-11.6 [facility] Comment on above: Order Comment: Reaso n for Exam Mixed hyperlipidemia;Medication monitoring encounter Performed By: #### C MP, CBC, LIPID #### [facility] [address] Comprehensive Metabolic Pane nilson 07-19-2023 Albumin [Mass/Vol] 4.1 g/dL Normal 3.5-5.7 [facility] Comment on above: Order Comment: Reaso n for Exam Mixed hyperlipidemia;Medication monitoring encounter PT IS FASTING Reason for Exam Mixed hyperlipidemia Performed By: #### C MP, CBC, LIPID #### [facility] [address] [place] [address] Albumin/Globulin [Mass ratio] 1.2 {ratio} Normal [facility] Comment on above: Order Comment: Reaso n for Exam Mixed hyperlipidemia;Medication monitoring encounter PT IS FASTING Reason for Exam Mixed hyperlipidemia Performed By: #### C MP, CBC, LIPID #### [facility] [address] ALP [Catalytic activity/Vol] 192 U/L High 34-104 [facility] Comment on above: Order Comment: Reaso n for Exam Mixed hyperlipidemia;Medication monitoring encounter PT IS FASTING Reason for Exam Mixed hyperlipidemia Performed By: #### C MP, CBC, LIPID #### [facility] [address] ALT [Catalytic activity/Vol] 22 U/L Normal 7-52 [facility] Comment on above: Order Comment: Reaso n for Exam Mixed hyperlipidemia;Medication monitoring encounter PT IS FASTING Reason for Exam Mixed hyperlipidemia Performed By: #### C MP, CBC, LIPID #### [facility] [address] Anion gap [Moles/Vol] 9.8 mmol/L Normal 6.0-15.0 [facility] Comment on above: Order Comment: Reaso n for Exam Mixed hyperlipidemia;Medication monitoring encounter PT IS FASTING Reason for Exam Mixed hyperlipidemia Performed By: #### C MP, CBC, LIPID #### [facility] [address] AST [Catalytic activity/Vol] 26 U/L Normal 13-39 [facility] Comment on above: Order Comment: Reaso n for Exam Mixed hyperlipidemia;Medication monitoring encounter PT IS FASTING Reason for Exam Mixed hyperlipidemia Performed By: #### C MP, CBC, LIPID #### [facility] [address] Bilirubin [Mass/Vol] 0.7 mg/dL Normal 0.3-1.0 [facility] Comment on above: Order Comment: Reaso n for Exam Mixed hyperlipidemia;Medication monitoring encounter PT IS FASTING Reason for Exam Mixed hyperlipidemia Performed By: #### C MP, CBC, LIPID #### [facility] [address] Calcium [Mass/Vol] 9.8 mg/dL Normal 8.6-10.3 [facility] Comment on above: Order Comment: Reaso n for Exam Mixed hyperlipidemia;Medication monitoring encounter PT IS FASTING Reason for Exam Mixed hyperlipidemia Performed By: #### C MP, CBC, LIPID #### [facility] [address] [place] [address] [place] Chloride [Moles/Vol] 104 mmol/L Normal 98-107 [facility] Comment on above: Order Comment: Reaso n for Exam Mixed hyperlipidemia;Medication monitoring encounter PT IS FASTING Reason for Exam Mixed hyperlipidemia Performed By: #### C MP, CBC, LIPID #### [facility] [address] [place] [address] [place] CO2 [Moles/Vol] 32.5 mmol/L High 21.0-31.0 [facility] Comment on above: Order Comment: Reaso n for Exam Mixed hyperlipidemia;Medication monitoring encounter PT IS FASTING Reason for Exam Mixed hyperlipidemia Performed By: #### C MP, CBC, LIPID #### [facility] [address] Creatinine [Mass/Vol] 0.65 mg/dL Normal 0.60-1.20 [facility] Comment on above: Order Comment: Reaso n for Exam Mixed hyperlipidemia;Medication monitoring encounter PT IS FASTING Reason for Exam Mixed hyperlipidemia Performed By: #### C MP, CBC, LIPID #### [facility] [address] GFR/1.73 sq M.predicted MDRD (S/P/Bld) [Vol rate/Area] mL/min/{1.73_m2} [facility] Comment on above: Order Comment: Reaso n for Exam Mixed hyperlipidemia;Medication monitoring encounter PT IS FASTING Reason for Exam Mixed hyperlipidemia Performed By: #### C MP, CBC, LIPID #### [facility] [address] Globulin (S) [Mass/Vol] 3.4 g/dL Normal [facility] Comment on above: Order Comment: Reaso n for Exam Mixed hyperlipidemia;Medication monitoring encounter PT IS FASTING Reason for Exam Mixed hyperlipidemia Performed By: #### C MP, CBC, LIPID #### [facility] [address] Glucose [Mass/Vol] 88 mg/dL Normal 70-100 [facility] Comment on above: Order Comment: Reaso n for Exam Mixed hyperlipidemia;Medication monitoring encounter PT IS FASTING Reason for Exam Mixed hyperlipidemia Result Comment: [place] Glucose Reference Range is dependent on time and content of last meal. Glucose of more than 200 mg/dL in a nonstressed, ambulatory subject supports the diagnosis of Diabetes Mellitus. ADA recommended reference range Performed By: #### C MP, CBC, LIPID #### [facility] [address] Potassium [Moles/Vol] 4.3 mmol/L Normal 3.5-5.1 [facility] Comment on above: Order Comment: Reaso n for Exam Mixed hyperlipidemia;Medication monitoring encounter PT IS FASTING Reason for Exam Mixed hyperlipidemia Performed By: #### C MP, CBC, LIPID #### [facility] [address] [place] [address] [place] Protein [Mass/Vol] 7.5 g/dL Normal 6.4-8.9 [facility] Comment on above: Order Comment: Reaso n for Exam Mixed hyperlipidemia;Medication monitoring encounter PT IS FASTING Reason for Exam Mixed hyperlipidemia Performed By: #### C MP, CBC, LIPID #### [facility] [address] [place] [address] [place] Sodium [Moles/Vol] 142 mmol/L Normal 136-145 [facility] Comment on above: Order Comment: Reaso n for Exam Mixed hyperlipidemia;Medication monitoring encounter PT IS FASTING Reason for Exam Mixed hyperlipidemia Performed By: #### C MP, CBC, LIPID #### [facility] [address] [place] [address] [place] Urea nitrogen [Mass/Vol] 12 mg/dL Normal 7-25 [facility] Comment on above: Order Comment: Reaso n for Exam Mixed hyperlipidemia;Medication monitoring encounter PT IS FASTING Reason for Exam Mixed hyperlipidemia Performed By: #### C MP, CBC, LIPID #### [facility] [address] [place] [address] [place] Creatinine [Mass/volume] in Serum or PlasmaOrdered By: Giovanni Mejia on 07-19-2023 Creatinine [Mass/Vol] 0.65 mg/dL 0.60-1.20 [facility] Eosinophils Auto (Bld) [#/Vo l]Ordered By: Giovanni Mejia on 07-19-2023 Eosinophils (Bld) [#/Vol] 0.2 10*3/uL 0.0-0.45 [facility] Eosinophils/100 WBC Auto (Bl d)Ordered By: Giovanni Mejia on 07-19-2023 Eosinophils/100 WBC (Bld) 3.9 % . [facility] Erythrocyte distribution wid th Auto (RBC) [Ratio]Ordered By: Giovanni Mejia on 07-19-2023 Erythrocyte distribution width (RBC) [Ratio] 13.8 % 11.9-15.3 [facility] Globulin Calc (S) [Mass/Vol] Ordered By: Giovanni Mejia on 07-19-2023 Globulin (S) [Mass/Vol] 3.4 g/dL [facility] Glucose [Mass/volume] in Ser um or PlasmaOrdered By: Giovanni Mejia on 07-19-2023 Glucose [Mass/Vol] 88 mg/dL 70-100 [facility] Comment on above: ADA recommended refe rence rangeRandom Glucose Reference Range is dependent on time and content of last meal. Glucose of more than 200 mg/dL in a nonstressed, ambulatory subject supports the diagnosis of Diabetes Mellitus. Hematocrit Auto (Bld) [Volum e fraction]Ordered By: Giovanni Mejia on 07-19-2023 Hematocrit (Bld) [Volume fraction] 37.5 % 34.0-46.4 [facility] Hemoglobin [Mass/volume] in BloodOrdered By: Giovanni Mejia on 07-19-2023 Hemoglobin (Bld) [Mass/Vol] 12.6 g/dL 11.8-15.4 [facility] Leukocytes [#/volume] correc katia for nucleated erythrocytes in Blood by Automated counOrdered By: Giovanni Mejia on 07-19-2023 WBC corrected for nucl RBC Auto (Bld) [#/Vol] 5.4 10*3/uL 3.8-11.6 [facility] Lipid Panelon 07-19-2023 Cholesterol [Mass/Vol] 169 mg/dL Normal 140-200 [facility] Comment on above: Order Comment: Reaso n for Exam Mixed hyperlipidemia;Medication monitoring encounter PT IS FASTING Reason for Exam Mixed hyperlipidemia Result Comment: Chol less than 200 mg/dl low risk Chol 201-239 mg/dl borderline risk Chol 240 mg/dl and greater high risk Performed By: #### C MP, CBC, LIPID #### [facility] [address] Cholesterol in HDL [Mass/Vol] 59 mg/dL Normal 23-92 [facility] Comment on above: Order Comment: Reaso n for Exam Mixed hyperlipidemia;Medication monitoring encounter PT IS FASTING Reason for Exam Mixed hyperlipidemia Result Comment: HDL CHOL ATP-III CLASSIFICATION Cardiovascular Risk HDL > or equal to 60 mg/dL LOW HDL < 40 mg/dL HIGH Performed By: #### C MP, CBC, LIPID #### [facility] [address] Cholesterol.total/Caty sterol in HDL [Mass ratio] 2.9 {ratio} Normal <5.0 [facility] Comment on above: Order Comment: Reaso n for Exam Mixed hyperlipidemia;Medication monitoring encounter PT IS FASTING Reason for Exam Mixed hyperlipidemia Result Comment: PERF ORMED BY: [place] [address] PATHOLOGIST SERICULTURIST MANISH SIDHU M.D. Performed By: #### C MP, CBC, LIPID #### [facility] [address] LDL Cholesterol,Calculated 89 mg/dL Normal 0-100 [facility] Comment on above: Order Comment: [...] By: #### C MP, CBC, LIPID #### [facility] [address] Triglyceride w/Reflex 107 mg/dL Normal 0-149 [facility] Comment on above: Order Comment: Reaso n [...] By: #### C MP, CBC, LIPID #### [facility] [address] VLDL CHOLESTEROL 21 mg/dL Normal [facility] Comment on above: Order Comment: Reaso n for Exam Mixed hyperlipidemia;Medication monitoring encounter PT IS FASTING Reason for Exam Mixed hyperlipidemia Performed By: #### C MP, CBC, LIPID #### [facility] [address] [place] [id number] [place] Lymphocytes Auto (Bld) [#/Vo l]Ordered By: Giovanni Mejia on 07-19-2023 Lymphocytes (Bld) [#/Vol] 1.3 10*3/uL 1.00-4.8 [facility] Lymphocytes/100 WBC Auto (Bl d)Ordered By: Giovanni Mejia on 07-19-2023 Lymphocytes/100 WBC (Bld) 23.5 % . [facility] MCH Auto (RBC) [Entitic mass ]Ordered By: Giovanni Mejia on 07-19-2023 MCH (RBC) [Entitic mass] 29.8 pg 24.7-34.3 [facility] MCHC Auto (RBC) [Mass/Vol]Or dered By: Giovanni Mejia on 07-19-2023 MCHC (RBC) [Mass/Vol] 33.7 g/dL 32.0-35.0 [facility] MCV Auto (RBC) [Entitic vol] Ordered By: Giovanni Mejia on 07-19-2023 MCV (RBC) [Entitic vol] 88.4 fL 80-100 F [facility] Monocytes Auto (Bld) [#/Vol] Ordered By: Giovanni Mejia on 07-19-2023 Monocytes (Bld) [#/Vol] 0.5 10*3/uL 0.0-0.8 [facility] Monocytes/100 WBC Auto (Bld) Ordered By: Giovanni Mejia on 07-19-2023 Monocytes/100 WBC (Bld) 8.4 % . F [facility] Neutrophils Auto (Bld) [#/Vo l]Ordered By: Giovanni Mejia on 07-19-2023 Neutrophils (Bld) [#/Vol] 3.4 10*3/uL 1.8-7.7 [facility] Neutrophils/100 WBC Auto (Bl d)Ordered By: Giovanni Mejia on 07-19-2023 Neutrophils/100 WBC (Bld) 63.5 % . [facility] No Panel InformationOrdered By: Giovanni Mejia on 07-19-2023 Estimated GFR (CKD-EPI) > 60.0 mL/Min [facility] Creatinine Clearance (Chem N/A [facility] Nucleated erythrocytes [Pres ence] in Blood by Automated countOrdered By: Giovanni Mejia on 07-19-2023 Nucleated RBC Auto Ql (Bld) 0.1 /100{WBC} 0-0.5 [facility] Platelet mean volume Auto (B ld) [Entitic vol]Ordered By: Giovanni Mejia on 07-19-2023 Platelet mean volume (Bld) [Entitic vol] 8.8 fL 6.3-10.7 [facility] Platelets Auto (Bld) [#/Vol] Ordered By: Giovanni Mejia on 07-19-2023 Platelets (Bld) [#/Vol] 172 10*3/uL 150-450 [facility] Potassium [Moles/volume] in Serum or PlasmaOrdered By: Giovanni Mejia on 07-19-2023 Potassium [Moles/Vol] 4.3 mmol/L 3.5-5.1 [facility] Protein [Mass/volume] in Ser um or PlasmaOrdered By: Giovanni Mejia on 07-19-2023 Protein [Mass/Vol] 7.5 g/dL 6.4-8.9 [facility] RBC Auto (Bld) [#/Vol]Ordere d By: Giovanni Mejia on 07-19-2023 RBC (Bld) [#/Vol] 4.24 10*6/uL 3.60-5.00 [facility] Serum or plasma albumin/glob ulin mass ratioOrdered By: Giovanni Mejia on 07-19-2023 Albumin/Globulin [Mass ratio] 1.2 {ratio} [facility] Serum or plasma anion gap de terminationOrdered By: Giovanni Mejia on 07-19-2023 Anion gap [Moles/Vol] 9.8 mmol/L 6.0-15.0 [facility] Serum or plasma high density lipoprotein (HDL) cholesterol measurementOrdered By: Giovanni Mejia on 07-19-2023 Cholesterol in HDL [Mass/Vol] 59 mg/dL 23-92 [facility] Comment on above: HDL CHOL ATP-III CLA SSIFICATION Cardiovascular RiskHDL > or equal to 60 mg/dL LOWHDL < 40 mg/dL HIGH Serum or plasma total choles terol/high density lipoprotein (HDL) cholesterol mass ratOrdered By: Giovanni Mejia on 07-19-2023 Cholesterol.total/Caty sterol in HDL [Mass ratio] 2.9 {ratio} <5.0 [facility] Sodium [Moles/volume] in Ser um or PlasmaOrdered By: Giovanni Mejia on 07-19-2023 Sodium [Moles/Vol] 142 mmol/L 136-145 [facility] Triglyceride [Mass/volume] i n Serum or PlasmaOrdered By: Giovanni Mejia on 07-19-2023 Triglyceride [Mass/Vol] 107 mg/dL 0-149 [facility] Comment on above: TRIG ATP III CLASSIF ICATIONTRIG less than 150 mg/dL NormalTRIG 150-199 mg/dL Borderline highTRIG 200-500 mg/dL High TRIG greater than 500 mg/dL Very highStandard traceable to the Center for Disease Conrtrol and Prevention (CDC) test method. Urea nitrogen [Mass/volume] in Serum or PlasmaOrdered By: Giovanni Mejia on 07-19-2023 Urea nitrogen [Mass/Vol] 12 mg/dL 7-25 [facility] WBC Auto (Bld) [#/Vol]Ordere d By: Giovanni Mejia on 07-19-2023 WBC (Bld) [#/Vol] 5.4 10*3/uL 3.8-11.6 [facility] 12-31-2022 L - -------- Specimen: [id number] Received: 12/31/22 Status: IRMAJabari Salvador Num: [id number] Spec Type: Surgical Subm Dr: Ramirez Bassett MD Tissues: A Colon Biopsy (SIGMOID POLYP) Procedures: HE/2, Gross/Micro L4 -------- Age/ Patient Sex Location Account Attending Physician -------- Luz Maria Diamond 62/F [id number] Ramirez Bassett MD -------- SPEC NUM: [id number] RECD: 12/31/22-1019 STATUS: SANCHO FRANCO NUM: [id number] CHELA: 12/31/22- SUBM DR: Ramirez Bassett MD ENTERED: 12/31/22-[address]: DORA TYPE: Surgical DEPT: S ORDERED: HE/2, Gross/Micro [...] support the above pathologic diagnosis. CPT Codes 11265 -------- -------- Specimen: [id number] Received: 12/31/22 Status: SANCHO Franco Num: [id number] Spec Type: Surgical Subm Dr: Ramirez Bassett MD Tissues: A Colon Biopsy (SIGMOID POLYP) Procedures: HE/Atiya, Gross/Micro L4 -------- Patient: Luz Maria Diamond [id number] (Continued) -------- Signed (signature on file) Evert Harrison MD 01/01/23 1217 [facility] Albumin [Mass/volume] in Ser um or PlasmaOrdered By: Giovanni Mejia on 07-10-2022 Albumin [Mass/Vol] 3.6 g/dL 3.2-5.5 [facility] Basophils Auto (Bld) [#/Vol] Ordered By: Giovanni Mejia on 07-10-2022 Basophils (Bld) [#/Vol] 0.0 10*3/uL 0.0-0.2 [facility] Basophils/100 WBC Auto (Bld) Ordered By: Giovanni Mejia on 07-10-2022 Basophils/100 WBC (Bld) 0.6 % . F [facility] Blood hemoglobin measurement (mass/volume)Ordered By: Giovanni Mejia on 07-10-2022 Hemoglobin (Bld) [Mass/Vol] 12.9 g/dL 11.8-15.4 [facility] Blood leukocytes automated c ount (number/volume)Ordered By: Giovanni Mejia on 07-10-2022 WBC (Bld) [#/Vol] 5.3 10*3/uL 4.5-11.0 [facility] Cholesterol [Mass/volume] in Serum or PlasmaOrdered By: Giovanni Mejia on 07-10-2022 Cholesterol [Mass/Vol] 164 mg/dL 140-200 [facility] Comment on above: Chol less than 200 m g/dl low riskChol 201-239 mg/dl borderline riskChol 240 mg/dl and greater high risk Cholesterol in LDL Calc [Mas s/Vol]Ordered By: Giovanni Mejia on 07-10-2022 Cholesterol in LDL [Mass/Vol] 86 mg/dL 0-100 [facility] Comment on above: LDL ATP III CLASSIFI CATIONLDL less than 100 mg/dL OptimalLDL 100-129 mg/dL Near or above optimalLDL 130-159 mg/dL Borderline highLDL 160-189 mg/dL HighLDL greater than 189 mg/dL Very high Cholesterol in VLDL Calc [Ma ss/Vol]Ordered By: Giovanni Mejia on 07-10-2022 Cholesterol in VLDL [Mass/Vol] 16 mg/dL [facility] Creatinine and Glomerular fi ltration rate.predicted panel (S/P/Bld)Ordered By: Giovanni Mejia on 07-10-2022 Creatinine [Mass/Vol] 0.71 mg/dL 0.44-1.03 [facility] Eosinophils Auto (Bld) [#/Vo l]Ordered By: Giovanni Mejia on 07-10-2022 Eosinophils (Bld) [#/Vol] 0.2 10*3/uL 0.0-0.45 [facility] Eosinophils/100 WBC Auto (Bl d)Ordered By: Giovanni Mejia on 07-10-2022 Eosinophils/100 WBC (Bld) 3.3 % . [facility] Erythrocyte distribution wid th Auto (RBC) [Ratio]Ordered By: Giovanni Mejia on 07-10-2022 Erythrocyte distribution width (RBC) [Ratio] 13.2 % 11.9-15.3 [facility] Estimated glomerular filtrat ion rate (GFR) non- AmericanOrdered By: Giovanni Mejia on 07-10-2022 GFR/1.73 sq M.predicted among non-blacks MDRD (S/P/Bld) [Vol rate/Area] > 60 mL/Min [facility] Globulin Calc (S) [Mass/Vol] Ordered By: Giovanni Mejia on 07-10-2022 Globulin (S) [Mass/Vol] 3.5 g/dL [facility] Hematocrit Auto (Bld) [Volum e fraction]Ordered By: Giovanni Mejia on 07-10-2022 Hematocrit (Bld) [Volume fraction] 39.4 % 34.0-46.4 [facility] Laboratory - Hematology and Cell countsOrdered By: Giovanni Mejia on 07-10-2022 Nucleated RBC/100 WBC (Bld) [Ratio] 0.1 % 0-0.5 [facility] Lymphocytes Auto (Bld) [#/Vo l]Ordered By: Giovanni Mejia on 07-10-2022 Lymphocytes (Bld) [#/Vol] 1.1 10*3/uL 1.00-4.8 [facility] Lymphocytes/100 WBC Auto (Bl d)Ordered By: Giovanni Mejia on 07-10-2022 Lymphocytes/100 WBC (Bld) 21.3 % . [facility] MCH Auto (RBC) [Entitic mass ]Ordered By: Giovanni Mejia on 07-10-2022 MCH (RBC) [Entitic mass] 29.6 pg 24.7-34.3 [facility] MCHC Auto (RBC) [Mass/Vol]Or dered By: Giovanni Mejia on 07-10-2022 MCHC (RBC) [Mass/Vol] 32.8 g/dL 32.0-35.0 [facility] MCV Auto (RBC) [Entitic vol] Ordered By: Giovanni Mejia on 07-10-2022 MCV (RBC) [Entitic vol] 90.4 fL 80-100 F [facility] Monocytes Auto (Bld) [#/Vol] Ordered By: Giovanni Mejia on 07-10-2022 Monocytes (Bld) [#/Vol] 0.5 10*3/uL 0.0-0.8 [facility] Monocytes/100 WBC Auto (Bld) Ordered By: Giovanni Mejia on 07-10-2022 Monocytes/100 WBC (Bld) 9.8 % . F [facility] Neutrophils Auto (Bld) [#/Vo l]Ordered By: Giovanni Mejia on 07-10-2022 Neutrophils (Bld) [#/Vol] 3.5 10*3/uL 1.8-7.7 [facility] Neutrophils/100 WBC Auto (Bl d)Ordered By: Giovanni Mejia on 07-10-2022 Neutrophils/100 WBC (Bld) 65.0 % . [facility] No Panel InformationOrdered By: Giovanni Mejia on 07-10-2022 Estimated GFR () > 60 mL/Min [facility] Comment on above: GFR estimated refere nce range: According to KDOQI guidelines, <60 ml/min/1.73m2 is sufficient to diagnose a patient with chronic kidney disease. Pharmacy Creatinine Clearance (Chem N/A [facility] Platelet mean volume Auto (B ld) [Entitic vol]Ordered By: Giovanni Mejia on 07-10-2022 Platelet mean volume (Bld) [Entitic vol] 9.2 fL 6.3-10.7 [facility] Platelets Auto (Bld) [#/Vol] Ordered By: Giovanni Mejia on 07-10-2022 Platelets (Bld) [#/Vol] 198 10*3/uL 150-450 [facility] Protein [Mass/volume] in Ser um or PlasmaOrdered By: Giovanni Mejia on 07-10-2022 Protein [Mass/Vol] 7.1 g/dL 6.1-7.9 [facility] RBC Auto (Bld) [#/Vol]Ordere d By: Giovanni Mejia on 07-10-2022 RBC (Bld) [#/Vol] 4.36 10*6/uL 3.60-5.00 [facility] Serum or plasma alanine isbell otransferase measurement without P-5'-P (enzymatic activiOrdered By: Giovanni Mejia on 07-10-2022 ALT No additional P-5'-P [Catalytic activity/Vol] 22 U/L [facility] Serum or plasma albumin/glob ulin mass ratioOrdered By: Giovanni Mejia on 07-10-2022 Albumin/Globulin [Mass ratio] 1.0 {ratio} [facility] Serum or plasma alkaline reuben sphatase measurement (enzymatic activity/volume)Ordered By: Giovanni Mejia on 07-10-2022 ALP [Catalytic activity/Vol] 105 U/L 32-92 [facility] Serum or plasma anion gap de terminationOrdered By: Giovanni Mejia on 07-10-2022 Anion gap [Moles/Vol] 12.2 mmol/L 6.0-15.0 [facility] Serum or plasma aspartate am inotransferase measurement (enzymatic activity/volume)Ordered By: Giovanni Mejia on 07-10-2022 AST [Catalytic activity/Vol] 24 U/L 10 [facility] Serum or plasma calcium lucien urement (mass/volume)Ordered By: Giovanni Mejia on 07-10-2022 Calcium [Mass/Vol] 9.5 mg/dL 8.2-10.2 [facility] Serum or plasma chloride cade surement (moles/volume)Ordered By: iGovanni Mejia on 07-10-2022 Chloride [Moles/Vol] 102 mmol/L 95-114 [facility] Serum or plasma glucose lucien urement (mass/volume)Ordered By: Giovanni Mejia on 07-10-2022 Glucose [Mass/Vol] 94 mg/dL 70-100 [facility] Comment on above: ADA recommended refe rence rangeRandom Glucose Reference Range is dependent on time and content of last meal. Glucose of more than 200 mg/dL in a nonstressed, ambulatory subject supports the diagnosis of Diabetes Mellitus. Serum or plasma high density lipoprotein (HDL) cholesterol measurementOrdered By: Giovanni Mejia on 07-10-2022 Cholesterol in HDL [Mass/Vol] 62 mg/dL 35-85 [facility] Comment on above: HDL CHOL ATP-III CLA SSIFICATION Cardiovascular RiskHDL > or equal to 60 mg/dL LOWHDL < 40 mg/dL HIGH Serum or plasma potassium me asurement (moles/volume)Ordered By: Giovanni Mejia on 07-10-2022 Potassium [Moles/Vol] 4.0 mmol/L 3.5-5.1 [facility] Serum or plasma sodium measu rement (moles/volume)Ordered By: Giovanni Mejia on 07-10-2022 Sodium [Moles/Vol] 140 mmol/L 136-146 [facility] Serum or plasma total biliru bin measurement (mass/volume)Ordered By: Giovanni Mejia on 07-10-2022 Bilirubin [Mass/Vol] 0.8 mg/dL 0.3-1.2 [facility] Serum or plasma total carbon dioxide measurement (moles/volume)Ordered By: Giovanni Mejia on 07-10-2022 CO2 [Moles/Vol] 29.8 mmol/L 22.0-30.0 [facility] Serum or plasma total choles terol/high density lipoprotein (HDL) cholesterol mass ratOrdered By: Giovanni Mejia on 07-10-2022 Cholesterol.total/Caty sterol in HDL [Mass ratio] 2.6 {ratio} <5.0 [facility] Serum or plasma urea nitroge n measurement (mass/volume)Ordered By: Giovanni Mejia on 07-10-2022 Urea nitrogen [Mass/Vol] 11 mg/dL 9- [facility] Triglyceride [Mass/volume] i n Serum or PlasmaOrdered By: Giovanni Mejia on 07-10-2022 Triglyceride [Mass/Vol] 80 mg/dL 35-149 F [facility] Comment on above: TRIG ATP III CLASSIF ICATIONTRIG less than 150 mg/dL NormalTRIG 150-199 mg/dL Borderline highTRIG 200-500 mg/dL High TRIG greater than 500 mg/dL Very highStandard traceable to the Center for Disease Conrtrol and Prevention (CDC) test method. Vital Signs Date Time Vital Sign Value Performing Clinician Facility 02-26-2024 09:46-0400 Body height 165.1 cm [facility] 02-26-2024 09:46-0400 Body mass index (BMI) [Ratio] 21.6 kg/m2 [facility] 02-26-2024 09:46-0400 Body weight 58.96 kg [facility] 09-12-2023 16:00-0500 Body height 165.1 cm Giovanni Mejia Other [facility] Other 09-12-2023 16:00-0500 Body mass index (BMI) [Ratio] 23.13 kg/m2 Giovanni Mejia Other [facility] Other 09-12-2023 16:00-0500 Body weight 63.05 kg Giovanni Mejia Other [facility] Other 09-12-2023 16:00-0500 Diastolic blood pressure 70 mm[Hg] Giovanni Mejia Other [facility] Other 09-12-2023 16:00-0500 Respiratory rate 18 /min Giovanni Mejia Other [facility] Other 09-12-2023 16:00-0500 SaO2% (BldA) [Mass fraction] 99 % Giovanni Mejia Other [facility] Other 09-12-2023 16:00-0500 Systolic blood pressure 122 mm[Hg] Giovanni Mejia Other [facility] Other 07-23-2023 17:15-0400 Body height 165.1 cm Giovanni Mejia Other [facility] Other 07-23-2023 17:15-0400 Body mass index (BMI) [Ratio] 22.3 kg/m2 Giovanni Mejia Other [facility] Other 07-23-2023 17:15-0400 Body weight 60.78 kg Giovanni Mejia Other [facility] Other 07-23-2023 17:15-0400 Diastolic blood pressure 64 mm[Hg] Giovnani Mejia Other [facility] Other 07-23-2023 17:15-0400 Respiratory rate 18 /min Giovanni Mejia Other [facility] Other 07-23-2023 17:15-0400 SaO2% (BldA) [Mass fraction] 98 % Giovanni Mejia Other [facility] Other 07-23-2023 17:15-0400 Systolic blood pressure 110 mm[Hg] Giovanni Mejia Other [facility] Other 03-19-2023 17:15-0400 Body height 165.1 cm Giovanni Mejia Other [facility] Other 03-19-2023 17:15-0400 Body mass index (BMI) [Ratio] 22.13 kg/m2 Giovanni Mejia Other [facility] Other 03-19-2023 17:15-0400 Body temperature 98.4 [degF] Giovanni Mejia Other [facility] Other 03-19-2023 17:15-0400 Body weight 60.33 kg Giovanni Mejia Other [facility] Other 03-19-2023 17:15-0400 Diastolic blood pressure 62 mm[Hg] Giovanni Mejia Other [facility] Other 03-19-2023 17:15-0400 SaO2% (BldA) [Mass fraction] 97 % Giovanni Mejia Other [facility] Other 03-19-2023 17:15-0400 Systolic blood pressure 100 mm[Hg] Giovanni Mejia Other [facility] [employer] Other 12-31-2022 10:03-0400 Diastolic blood pressure 58 mm[Hg] DO Gioavnni Mejia Work Phone: [facility] 12-31-2022 10:03-0400 Heart rate 67 /min DO Giovanni Poncemer Work Phone: [facility] 12-31-2022 10:03-0400 Respiratory rate 16 /min DO Giovanni Mejia Work Phone: [facility] 12-31-2022 10:03-0400 SaO2% (BldA) [Mass fraction] 99 % DO Giovanni Mejia Work Phone: [facility] 12-31-2022 10:03-0400 Systolic blood pressure 99 mm[Hg] DO Giovanni Poncemer Work Phone: [facility] 12-31-2022 08:17-0400 Body height 165.1 cm DO Giovanni Poncemer Work Phone: [facility] 12-31-2022 08:17-0400 Body temperature 97.9 [degF] DO Giovanni Poncemer Work Phone: [facility] 12-31-2022 08:17-0400 Body weight 58.96 kg DO Giovanni Roberto Work Phone: [facility] 12-25-2022 16:15-0400 Body height 165.1 cm Lina Bustillo Other [facility] Other 12-25-2022 16:15-0400 Body mass index (BMI) [Ratio] 22.63 kg/m2 Lina Bustillo Other [facility] Other 12-25-2022 16:15-0400 Body weight 61.69 kg Lina Bustillo Other [facility] Other 07-18-2022 17:15-0400 Body height 165.1 cm Giovanni Mejia Other [facility] Other 07-18-2022 17:15-0400 Body mass index (BMI) [Ratio] 22.75 kg/m2 Giovanni Mejia Other [facility] Other 07-18-2022 17:15-0400 Body weight 62.01 kg Giovanni Mejia Other [facility] Other 07-18-2022 17:15-0400 Diastolic blood pressure 62 mm[Hg] Giovanni Mejia Other [facility] Other 07-18-2022 17:15-0400 Respiratory rate 16 /min Giovanni Mejia Other [facility] Other 07-18-2022 17:15-0400 SaO2% (BldA) [Mass fraction] 98 % Giovanni Mejia Other [facility] Other 07-18-2022 17:15-0400 Systolic blood pressure 110 mm[Hg] Giovanni Mejia Other [facility] Other 03-30-2022 09:45-0400 Body height 165.1 cm Lina Bustillo Other [facility] Other 03-30-2022 09:45-0400 Body mass index (BMI) [Ratio] 22.46 kg/m2 Lina Bustillo Other [facility] Other 03-30-2022 09:45-0400 Body weight 61.24 kg Lina Bustillo Other [facility] Other 09-01-2021 10:45-0500 Body height 165.1 cm Giovanni Mejia Other [facility] Other 09-01-2021 10:45-0500 Body mass index (BMI) [Ratio] 22.31 kg/m2 Giovanni Mejia Other [facility] Other 09-01-2021 10:45-0500 Body temperature 97.8 [degF] Giovanni Mejia Other [facility] Other 09-01-2021 10:45-0500 Body weight 60.83 kg Giovanni Mejia Other [facility] Other 09-01-2021 10:45-0500 Diastolic blood pressure 82 mm[Hg] Giovanni Mejia Other [facility] Other 09-01-2021 10:45-0500 Respiratory rate 16 /min Giovanni Mejia Other [facility] Other 09-01-2021 10:45-0500 SaO2% (BldA) [Mass fraction] 97 % Giovanni Mejia Other [facility] Other 09-01-2021 10:45-0500 Systolic blood pressure 124 mm[Hg] Giovanni Mejia Other [facility] Other Encounters Encounter Date Encounter Type Care Provider Facility Start: 02-26-2024 End: 02-26-2024 ambulatory [facility] Work Phone: Start: 02-26-2024 End: 02-26-2024 Patient encounter procedure [facility] Work Phone: Start: 10-22-2023 End: 10-22-2023 ambulatory Giovanni Mejia Other [facility] Other Start: 10-22-2023 Telephone encounter [facility] [place] Start: 10-02-2023 End: 01-08-2024 ambulatory [facility] Facility:[facility] Start: 09-16-2023 End: 09-16-2023 ambulatory Giovanni Mejia Other [facility] Other Start: 09-16-2023 Telephone encounter Giovanni Gillespie [facility] [place] Start: 09-12-2023 End: 09-12-2023 Departed Referred DO Giovanni Mejia Work Phone: [facility] [place] Work Phone: Start: 09-12-2023 End: 09-12-2023 ambulatory DO Giovanni Mejia Work Phone: [facility] Other Start: 09-12-2023 Office outpatient vi sit 15 minutes Giovanni Mejia [facility] [place] Start: 09-10-2023 End: 09-10-2023 ambulatory Giovanni Mejia Other [facility] Other Start: 09-10-2023 Telephone encounter Giovanni Gillespie [facility] Start: 09-02-2023 End: 09-02-2023 ambulatory Giovanni Mejia Other [facility] Other Start: 09-02-2023 Telephone encounter Giovanni Gillespie [facility] Start: 08-28-2023 End: 08-28-2023 ambulatory Giovanni Mejia Other [facility] Other Start: 08-28-2023 Telephone encounter Giovanni Gillespie [facility] [place] Start: 07-23-2023 End: 07-23-2023 ambulatory Giovanni Mejia Other [facility] Other Start: 07-23-2023 Encounter for genera l adult medical examination without abnormal findings Giovanni Roberto [facility] Start: 07-23-2023 Periodic preventive med est patient 40-64yrs Giovanni Roberto [facility] Start: 07-19-2023 End: 07-19-2023 ambulatory Giovanni Michelle Roberto Facility:[facility] Start: 07-19-2023 End: 07-19-2023 ambulatory DO Giovanni N Roberto Work Phone: [facility] Work Phone: Start: 07-19-2023 End: 07-19-2023 Patient encounter procedure DO Giovanni Mejia Work Phone: [facility] [place] Work Phone: Start: 06-06-2023 ambulatory ANASTASIA BERMUDEZ Faci lity:H1 Start: 05-20-2023 ambulatory ANASTASIA BERMUDEZ Faci lity:H1 Start: 04-03-2023 End: 04-03-2023 ambulatory Giovanni Mejia Other [facility] Other Start: 04-03-2023 Telephone encounter Giovanni Gillespie [facility] [place] Start: 03-19-2023 End: 03-19-2023 ambulatory Giovanni Mejia Other [facility] Other Start: 03-19-2023 Office outpatient vi sit 15 minutes Giovanni Roberto [facility] [place] Start: 01-02-2023 End: 01-03-2023 ambulatory ANASTASIA BERMUDEZ Facility: Start: 12-31-2022 End: 12-31-2022 ambulatory Giovanni Michelle PonceRoberto Facility:[facility] Start: 12-31-2022 End: 12-31-2022 Admission to same day surgery center DO Giovanni Mejia Work Phone: [facility] Work Phone: Start: 12-31-2022 End: 12-31-2022 ambulatory DO Giovanni Mejia Work Phone: [facility] Work Phone: Start: 12-25-2022 End: 12-25-2022 ambulatory Lnia Bustillo Other [facility] Other Start: 12-25-2022 Office outpatient vi sit 25 minutes Lina Bustillo [facility] Start: 12-17-2022 End: 12-17-2022 ambulatory Giovanni Mejia Other [facility] Other Start: 12-17-2022 Telephone encounter Giovanni Roberto Verna [facility] [place] Start: 11-05-2022 End: 11-05-2022 ambulatory Nathaniel Azevedo Other [facility] Other Start: 11-05-2022 Telephone encounter Nathaniel Azevedo [facility] [place] Start: 10-31-2022 End: 10-31-2022 ambulatory Lina Bustillo Other [facility] Other Start: 10-31-2022 Telephone encounter Lina Keny [facility] Start: 08-29-2022 End: 08-29-2022 ambulatory Giovanni Mejia Other [facility] Other Start: 08-29-2022 Office outpatient vi sit 15 minutes Lina Bustillo [facility] Start: 08-29-2022 Telephone encounter Giovanni Gillespie [facility] [place] Start: 07-27-2022 End: 07-27-2022 ambulatory Giovanni Mejia Other [facility] Other Start: 07-27-2022 Telephone encounter Giovanni Gillespie [facility] [place] Start: 07-18-2022 End: 07-18-2022 ambulatory Giovanni Mejia Other [facility] Other Start: 07-18-2022 Encounter for genera l adult medical examination without abnormal findings Giovannilore Mejia [facility] [place] Start: 07-18-2022 Periodic preventive med est patient 40-64yrs Giovanni Mejia [facility] [place] Start: 07-16-2022 End: 07-16-2022 ambulatory Giovanni Mejia Other [facility] Other Start: 07-16-2022 Telephone encounter Giovanni Gillespie [facility] [place] Start: 07-10-2022 End: 07-10-2022 ambulatory DO Giovanni Mejia Work Phone: [facility] Work Phone: Start: 07-10-2022 End: 07-10-2022 Patient encounter procedure DO Giovanni Mejia Work Phone: [facility] [place] Start: 07-03-2022 End: 07-03-2022 ambulatory Giovanni Roberto Other [facility] Other Start: 07-03-2022 Telephone encounter Giovanni Gillespie [facility] [place] Start: 05-24-2022 End: 05-24-2022 ambulatory Giovanni Mejia Other [facility] Other Start: 05-24-2022 Telephone encounter Giovanni Gillespie [facility] [place] Start: 04-05-2022 End: 04-05-2022 ambulatory Nathaniel Roberto Carlos Other [facility] Other Start: 04-05-2022 Telephone encounter Nathaniel Roberto Carlos [facility] [place] Start: 03-30-2022 End: 03-30-2022 ambulatory Lina Bustillo Other [facility] Other Start: 03-30-2022 Office outpatient vi sit 10 minutes Lina Calvey [facility] Start: 02-21-2022 End: 02-21-2022 ambulatory Lina Calvey Other [facility] Other Start: 02-21-2022 Office outpatient vi sit 15 minutes Lian Calvey [facility] Start: 02-20-2022 End: 02-20-2022 ambulatory Giovanni Meija Other [facility] Other Start: 02-20-2022 Telephone encounter Giovanni Gillespie [facility] [place] Start: 10-18-2021 End: 10-18-2021 ambulatory Giovanni Mejia Other [facility] Other Start: 10-18-2021 Telephone encounter Giovanni Gillespie [facility] [place] Start: 10-16-2021 End: 10-16-2021 ambulatory Giovanni Mejia Other [facility] Other Start: 10-16-2021 Telephone encounter Giovanni Gillespie [facility] Start: 09-01-2021 End: 09-01-2021 ambulatory Giovanni Mejia Other [facility] Other Start: 09-01-2021 Office outpatient vi sit 15 minutes Giovanni Roberto [facility] [place] Start: 08-16-2021 End: 08-16-2021 ambulatory Giovanni Mejia Other [facility] Other Start: 08-16-2021 Telephone encounter [facility] [place] Start: 08-03-2021 End: 08-03-2021 ambulatory Giovanni Mejia Other [facility] Other Start: 08-03-2021 Telephone encounter Giovanni Gillespie [facility] [place] Procedures Date Procedure Procedure Detail Performing Clinician Start: 12-31-2022 Screening colonoscopy D O Giovanni Mejia Work Phone: Plan of Treatment Date Care Activity Detail Author Start: 09-12-2023 Bacteria identified in Urine by Culture Urine Culture [facility] Start: 12-31-2022 [facility] Patient Education Hemorrhoids Colon Polyp s [facility] Work Phone: XR Hand - bilateral 3 Views [facility] Immunizations Immunization Date Immunization Notes Care Provider Isai herndon 01-13-2021 COVID-19 Vaccine Moderna - Documentation Purposes Only Giovanni Poncemer Other [facility] 12-16-2020 COVID-19 Vaccine Moderna - Documentation Purposes Only Giovanni Roberto Other [facility] 11-23-2020 influenza, injectabl e, quadrivalent, contains preservative Giovanni Poncemer Other [facility] Other 11-23-2020 influenza, injectabl e, quadrivalent, preservative free [facility] Payers Date Payer Category Payer Blue [facility] [id number] 1960 Unknown [id number] 1960 Unknown [id number] 1960 Unknown [id number] 1960 Unknown [id number] 1957 Self-pay [id number] Medicaid [place] [id number] Private Health Insurance [facility] [id number] Unknown [id number] Unknown [id number] Unknown [id number] Worker's Compensation [employer] [id number] Worker's Compensation [id number] Social History Date Type Detail Facility Sex Assigned At [facility] Other Start: 11-04-2020 End: 12-31-2022 Tobacco smoking status NHIS Never smoked tobacco (finding) [facility] Start: 1960 Sex Assigned At Female F [facility] Goals Date Patient Goal Desired Activity /State Clinical Notes 08-03-2021 to 10-03-2023 Note Date & Type Note Facility 10-03-2023 Note [id number] 09-16-2023 Evaluation note Encounter Date Diagnosis Assessment Notes Aug, Suspected UTI (ICD-10 - R39.89) [facility] Other 12-14-2023 Evaluation note* Encounter Date Diagnosis [...] she is improving in a few days. [facility] Other 10-24-2023 Evaluation note* Encounter Date Diagnosis [...] Medication monitorin g encounter (ICD-10 - Z51.81) [facility] Other 07-05-2023 Evaluation note* Encounter Date Diagnosis Assessment Notes Treatment Notes Treatment Clinical Notes Mar, Migraine without aura and without status migrainosus, not intractable (ICD-10 - G43.009) [facility] Other 06-20-2023 Evaluation note* Encounter Date Diagnosis [...] Medication monitorin g encounter (ICD-10 - Z51.81) [facility] Other 04-05-2023 NotePROCEDURE: XR FOOT RT MIN 3 VIEWS COMPARISON: None. HISTORY: Pain in right foot FINDINGS: BONES:No acute fracture or dislocation. Severe degenerative changes of the first metatarsal-phalangeal joint with [id number] articulation, marginal osteophyte formation and subchondral lytic changes SOFT TISSUES:Negative. No visible soft tissue swelling. EFFUSION:None visible. OTHER: Negative. IMPRESSION: Severe osteoarthritis first metatarsal phalangeal joint Electronically authenticated by: NISHA VANESSA Date: 2023-01-02 15:46[facility]04-03-2023 History and physical note Author Ramirez Bassett [facility] December 31, 2022 9:07am Note Date/Time December 31, 2022 9:[address] [facility] [address] [place] [address] Gastroenterology H&P Signed Patient: Luz Maria Diamond MR# : [id number] : 1960 Acct:[id number] Age/Sex: 62 / F Adm Date: 3 Loc: Room: Type: [facility] Attending Dr: Ramirez Bassett MD Copies to: Ramirez Bassett MD Giovanni Martinez RobertoDO~ Date of Service: 12/31/2022 HISTORY & PHYSICAL: [...] <Electronically signed by Ramirez Bassett MD> 12/31/22906 [facility] Work Phone: [phone] [facility] note* Encounter Date Diagnosis Assessment Notes [...] joint of right hand (ICD-10 - M18.11) [facility] Other 02-06-2023 Evaluation note* Encounter Date Diagnosis Assessment Notes Treatment Notes Treatment Clinical Notes Oct, Migraine without aura and without status migrainosus, not intractable (ICD-10 - G43.009) [facility] Other 11-30-2022 Evaluation note* Encounter Date Diagnosis [...] [facility] injected with cortisone under sterile technique [facility] Other 10-19-2022 Evaluation note* Encounter Date Diagnosis [...] Jun, Medication monitoring encounter (ICD-10 - Z51.81) [facility] Other 08-25-2022 Evaluation note* Encounter Date Diagnosis Assessment Notes Treatment Notes Treatment Clinical Notes Apr, Migraine without aura and without status migrainosus, not intractable (ICD-10 - G43.009) [facility] Other 07-07-2022 Evaluation note* Encounter Date Diagnosis Assessment Notes Treatment Notes Treatment Clinical Notes Mar, Restless leg (ICD-10 - G25.81) [facility] Other 07-01-2022 Evaluation note* Encounter Date Diagnosis [...] joint of right hand (ICD-10 - M18.11) [facility] Other 05-25-2022 Evaluation note* Encounter Date Diagnosis Assessment Notes Treatment Notes Treatment Clinical Notes January, Trigger ring finger of right hand (ICD-10 - M65.341) January, Carpal tunnel syndro me of left wrist (ICD-10 - G56.02) January, Trigger middle finge r of left hand (ICD-10 - M65.332) January, Primary osteoarthrit is of first carpometacarpal joint of right hand (ICD-10 - M18.11) [facility] Other 01-19-2022 Evaluation note* Encounter Date Diagnosis Assessment Notes Treatment Notes Treatment Clinical Notes Sep, Restless leg (ICD-10 - G25.81) [facility] Other 01-17-2022 Evaluation note* Encounter Date Diagnosis Assessment Notes Treatment Notes Treatment Clinical Notes Sep, Restless leg (ICD-10 - G25.81) [facility] Other 12-03-2021 Evaluation note* Encounter Date Diagnosis [...] Aug, Duodenal ulcer (ICD- 10 - K26.9) [facility] Other 11-04-2021 Evaluation note* Encounter Date Diagnosis Assessment Notes Treatment Notes Treatment Clinical Notes Jul, Migraine without aura and without status migrainosus, not intractable (ICD-10 - G43.009) [facility] Other Evaluation noteNo InformationNort [facility] Other Evaluation noteNo assessment information available [facility] Work Phone: Evaluation note* Diagnosis Onset Date Resolution Status Carpal tunnel syndrome of left wrist acute Left hand pain acute Numbness of left hand acute [facility] Work Phone: History general Narrative - Reported* Type Description Date Medical History hypercholesterolemia Medical History Esophageal reflux Medical History migraine headache Medical History restless leg syndrome Surgical History (R) rotator cuff tear repair Surgical History right carpal tunnel release Hospitalization History See Above Hospitalization History ulcers [facility] Other History general Narrative - Reported* Type Description Date Medical History hypercholesterolemia Medical History Esophageal reflux Medical History migraine headache Medical History restless leg syndrome Surgical History (R) rotator cuff tear repair Surgical History right carpal tunnel release Surgical History big toe fusion right foot 06/06 Hospitalization History See Above Hospitalization History ulcers [facility] Other Hospital Discharge instructions Additional Instructions DISCHARGE [...] years. -Follow up with PCP. -Office number [phone].[facility] Work Phone: Reason for visit NarrativeReferral update - Dr Engle [facility] Other Chief Complaint and Reason for Visit Chief Complaint E78.2;Z51.81;K26.9 Chief Complaint Screening Chief Complaint e78.2 z51.81 Chief Complaint e78.2 z51.81 Dysuria Chief Complaint OP SP LT HAND PAIN Reason for Visit Carpal tunnel syndro me of left wrist Left hand pain Numbness of left hand Family History Relationship Condition Age at Onset Recorded Date/T sha Not Specified Malignant neoplasm of colon Unknown father Malignant neoplasm of liver Unknown Malignant neoplasm of lung Unknown grandparent Malignant neoplasm of breast Unknown Relationship Condition Age at Onset Recorded Date/T sha Not Specified Malignant neoplasm of colon Unknown father Malignant neoplasm of liver Unknown Malignant neoplasm of lung Unknown grandparent Malignant neoplasm of breast Unknown father Unknown Not Specified Unknown sister Hypertension Unknown Advance Directives Advance Directive Response Recorded Date/ Time Advance [...] Member Role Status Dates Giovanni Mejia , Attending Provider Active Team Status: Inactive Member Role Status Dates Giovanni Mejia , DO Primary Care Provider Active Start: February 26, 2024 End: February 26, 2024 Lina Bustillo MD Attending Provider Active Start: February 26, 2024 End: February 26, 2024 Goals (unrecognized section and content) Goals may be documented in a n alternate section INFORMATION SOURCE (unrecogn ized section and content) DATE CREATED AUTHOR 01/31/2023 [facility] DATE CREATED AUTHOR AUTHOR'S ORGANIZ ATION 09/20/2023 [facility] DATE CREATED AUTHOR AUTHOR'S ORGANIZ ATION 01/10/2024 [facility] FOR RECORDS PERTAINING TO PATIENTS WHO ARE [...] BE BASED ON THE PRIMARY CLINICAL RECORDS. [facility] [employer] provides no warranty or guarantee of the accuracy or completeness of information in this document.
== END 2024-04-14 15:12 | disposition home or self-care (01) ==
LOC: EC 15:12
PROVIDERS: Visit Provider Podiatrist Foot & Ankle Surgery
DX: M79.671 Pain in right foot (principal); M24.674 Ankylosis, right foot
CPT/HCPCS: 73630

== ENCOUNTER 2025-03-17 11:52 | Outpatient (OUT) | payer BC, SELFPAY ==
--- OUTSIDE RECORDS SUMMARY | 2024-04-14 10:45 | XMS_ITS ---
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 Name Role Phone Giovanni Mejia DO Primary Care Provider Unavail able Jose Nixon [phone] Allergies No Known Allergies Results Component Value Reference Range Notes XR Foot RT (3 views) * Reviewed date:05/05/2024 09:29:24 AM Interpretation: Performing Lab: Notes/Report: REASON FOR VISIT 3 month f/u Medications Medication SIG (Take, Route, Fr equency, Duration) Notes Start Date End Date Status Omeprazole 20 MG 1 capsule 30 minutes before morning meal Orally Once a day A ctive Inderal LA 120 MG 1 capsule Orally Once a day Active Lipitor 20 MG 1 tablet Orally Once a day Active Social History Tobacco Use: Social History Observation Description Date Details (start date - stop date) Never Smoker NA - NA Tobacco Use/Smoking Question Answer Notes Patient is a nonsmoker Problems Problem Type SNOMED Code ICD Code Onset Dates Problem Status W/U Status Risk Notes Problem 39867010 Pain due to internal orthopedic prosthetic devices, implants and grafts, initial encounter (T84.84XA) Active confirmed Problem 905512611 Pseudarthrosis after fusion or arthrodesis (M96.0) Active confirmed Vital Signs Temperature 97.2 degrees Fahrenheit 04/14/20 24 Heart Rate 72 /min 04/14/2024 Respiratory Rate 16 /min 04/14/2024 Height 65 in 04/14/2024 Weight 130 lbs 04/14/2024 BMI 21.63 kg/m2 04/14/2024 Encounters Encounter Location Date Provider Diagnosis [facility] (PODIATRY) [address] [place] [address] [place] [address] 04/14/2024 Jose Nixon Hallux rigidus of right foot M20.21 ; Pseudarthrosis after fusion or arthrodesis M96.0 ; Pain due to internal orthopedic prosthetic devices, implants and grafts, initial encounter T84.84XA and Right foot pain M79.671 Assessments Encounter Date Diagnosis (ICD Code) Assessment Notes Treatment Notes Treatment Clinical Notes Section Notes 04/14/2024 Hallux rigidus of right foot (ICD-10 - M20.21) 04/14/2024 Pseudarthrosis after fusion or arthrodesis (ICD-10 - M96.0) Patient is 10 months status post right first MPJ fusion and 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 She has had recurrent pinching pain periodically throughout the day and points to the distal aspect of the plate which is palpable beneath the skin. X-rays today are concerning and are consistent with nonunion with less than 1 cm of gap between the proximal phalanx and first metatarsal and the plate does appear to be stable although slightly prominent at its distalmost aspect on the lateral projection. The AP projection is concerning for loosening of the interfrag.A bone stimulator was ordered today and will be approved through her insuranceCT scan was ordered and will be reviewed at follow-up.I recommended stiff soled shoes and close monitoring of her symptoms. I reviewed the potential need for revision but given clinically the toe is stable and she is only having pain at the distal plate I am hopeful that we can avoid any need for further surgical intervention for the time being. No new x-rays are necessary at follow-up as we will review her CT scan results. 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 She has had recurrent pinching pain periodically throughout the day and points to the distal aspect of the plate which is palpable beneath the skin. X-rays today are concerning and are consistent with nonunion with less than 1 cm of gap between the proximal phalanx and first metatarsal and the plate does appear to be stable although slightly prominent at its distalmost aspect on the lateral projection. The AP projection is concerning for loosening of the interfrag.A bone stimulator was ordered today and will be approved through her insuranceCT scan was ordered and will be reviewed at follow-up.I recommended stiff soled shoes and close monitoring of her symptoms. I reviewed the potential need for revision but given clinically the toe is stable and she is only having pain at the distal plate I am hopeful that we can avoid any need for further surgical intervention for the time being. No new x-rays are necessary at follow-up as we will review her CT scan results. Pending Test Test Name Order Date CT Foot RT w/o contrast * (Optional 3D R endering) 04/14/2024 Progress Notes * Luz Maria SCALESDOB:[birth year] (64 yo F)Acc No.[id number]:04/14/2024 Follow Up Patient: Umm Luz Maria MARKS Provider: Umm Nixon DPM, MS :1960 A ge:64 Y S ex:Female Date:04/14/2024 Address:[address] [place], [place] [id number] Pcp:Giovanni Mejia, DO Check In:02:45 PM ESTCheck O ut:03:31 PM EST Subjective: * Chief Complaints: * 3 month f/u * HPI: G eneral: Post op right 1st MTP arthrodesis DOS 06/06/23. States gets occassional Pinching feeling that comes and goes to right great dorsal toe. lasts a short time. Wearing normal shoes and states 100% better than prior to surgery. * ROS: G eneral/Constitutional: Chills d enies. F ever d enies. W eight gain?denies. W eight loss d enies. S kin: Skin Ulcers d enies. S kin lesion(s) d enies. ? C ardiovascular: Difficulty breathing on exertion d enies. L eg cramps?denies. E vamsi d enies. C hest pain d enies. R espiratory: Difficulty breathing d enies. D yspnea d enies.?Cough d enies. G astrointestinal: Diarrhea d enies. N ausea d enies. V omiting?denies. M usculoskeletal: Bone/Joint Symptoms d enies. C cuong Pain d enies.?Leg cramps d enies. N eurologic: Numbness d enies. T ingling d enies . G ait abnormality d enies. ? H ematology: Anemia D enies. E asy bruising d enies. ? A ll Other Systems: Review of Systems (ROS) S ee HPI for details,All others negative except those mentioned in HPI. * Active Problem List M20.21 Hallux rigidus of ri ght foot Modified On:12/18/2023/U Status:confirmed L03.031 Paronychia of toe of right foot Modified On:01/02/2023/U Status:confirmed M79.671 Right foot pain Modified On:12/18/2023/U Status:confirmed T84.84XA Pain due to internal orthopedic prosthetic devices, implants and grafts, initial encounter Modified On:04/14/2024/U Status:confirmed M96.0 Pseudarthrosis after fusion or arthrodesis Modified On:04/14/2024/U Status:confirmed * Medical History: * Surgical History: r otator tear 2018carpal tunnel 2020Right foot 1st MTP fusion 06/06/23 * Hospitalization/Major Diagno stic Procedure: D enies Past Hospitalization * Family History: F ather: unknown, diagnosed with Other malignant neoplasm of unspecified site. M other: unknown, diagnosed with Other malignant neoplasm of unspecified site. * Social History: T obacco Use: T obacco Use/Smoking P atient is a n onsmoker * Medications: T akingInderal LA(Propranolol HCl ER) 120 MG Capsule Extended Release 24 Hour 1 capsule Orally Once a day Lipitor(Atorvastatin Calcium) 20 MG Tablet 1 tablet Orally Once a day Omeprazole 20 MG Capsule Delayed Release 1 capsule 30 minutes before morning meal Orally Once a day Medication List reviewed and reconciled with the patientTaking Inderal LA(Propranolol HCl ER) 120 MG Capsule Extended Release 24 Hour 1 capsule Orally Once a day Taking Lipitor(Atorvastatin Calcium) 20 MG Tablet 1 tablet Orally Once a day Taking Omeprazole 20 MG Capsule Delayed Release 1 capsule 30 minutes before morning meal Orally Once a day Medication List reviewed and reconciled with the patient * Allergies: N .K.D.A.no[Allergies Verified] Objective: * Vitals: W t:130lbs, Ht: 65 in, Temp:97.2F, HR:72/min, RR:16/min, BMI:21.63Index, Pain scale:01-10, Ht-cm: 165.1 cm, Wt-k.97 kg. * Examination: P odiatry Examination: SKIN: s kin intact, n o sign of infection. MUSCULOSKELETAL: P OP dorsal aspect of the proximal phalanx of the great toe at the edge of the plate which is palpable beneath the skin. There is no range of motion of the great toe with clinical fusion. Rectus alignment is noted of all 5 toes.. NEUROLOGICAL: l ight touch sensation intact, n egative tinel's sign. VASCULAR: P edal pulses palpable, C apillaryrefill is brisk to toe, D igitalhair intact. X -rays: x-rays were obtained & reviewed in my office. Dorsal plate and screw construct is stable without loosening however the interfrag screw does show some evidence of loosening near the head of the screw. No change in alignment. There is overall a lack of osseous fusion across the first metatarsal phalangeal joint. Assessment: * Assessment: 1. P seudarthrosis after fusion or arthrodesis - M96.0 (Primary) 2 . H allux rigidus of right foot - M20.21 3 . P ain due to internal orthopedic prosthetic devices, implants and grafts, initial encounter - T84.84XA 4 . R ight foot pain - M79.671 Plan: * Treatment: 2. H allux rigidus of right foot I maging: CT Foot RT w/o contrast * (Optional 3D Rendering) 3. R ight foot pain I maging: XR Foot RT (3 views) * * Procedure Codes: * Preventive Medicine: Screenings/Counseling: B SD ACTION PLAN Above Normal BMI Follow-up D ietary management education, guidance, and counseling F ALL RISK SCREENING Fall Risk Assessment: N o falls in the past year * * Sign off status: Completed Visit Status: C HK (Check Out) true * Provider: Umm Nixon DPM, MS Date: 0 04/14/2024 Generated for Camilo azar/Marlin/Shahiditting on: 0 03/17/2025 11:55 AM EDT History and Physical Notes * HPI (History of Present Illness) Category Sub-Category Detail Notes Category Not es General Post op right 1 st MTP arthrodesis DOS 06/06/23. States gets occassional Pinching feeling that comes and goes to right great dorsal toe. lasts a short time. Wearing normal shoes and states 100% better than prior to surgery. Examination Category Sub-Category Detail Notes Category Not es Podiatry Examination SKIN: skin intact, no sign of infection X-rays: x-rays were obtained & reviewed in my office. Dorsal plate and screw construct is stable without loosening however the interfrag screw does show some evidence of loosening near the head of the screw. No change in alignment. There is overall a lack of osseous fusion across the first metatarsal phalangeal joint MUSCULOSKELETAL: POP dorsal aspect of the proximal phalanx of the great toe at the edge of the plate which is palpable beneath the skin. There is no range of motion of the great toe with clinical fusion. Rectus alignment is noted of all 5 toes. NEUROLOGICAL: light touch sensatio n intact, negative tinel's sign VASCULAR: Pedal pulses palpable, Capillary refill is brisk to toe, Digital hair intact
--- OUTSIDE RECORDS SUMMARY | 2024-05-25 11:40 | XMS_ITS ---
Author Organization [facility] [place] Address [address] [place] [address] Care Team Providers Care Meter Shop Superintendent Name Role Phone Roberto ZAZUETAGiovanni Primary Care Provider Jose Eason [phone] Encounters Encounter Location Date Provider Diagnosis [facility] (PODIATRY) [address] [place] [address] [place] [address] 05/25/2024 Jose Nixon Plan Of Treatment No Information Progress Notes * Luz Maria SCALESDOB:[birth year] (64 yo F)Acc No.[id number]:05/25/2024 Patient: Umm Luz Maria MARKS :1960 A ge:64 Y S ex:Female Address:[address] [place] [id number] * true * Date: Generated for Printi ng/Faxing/eTransmitting on: 0 03/17/2025 11:55 AM EDT
--- OUTSIDE RECORDS SUMMARY | 2024-08-18 07:13 | XMS_ITS ---
Author Organization [facility] [place] Address [address] [place] [address] Care Team Providers Care Lion Tamer Name Role Phone Roberto ZAZUETAGiovanni Primary Care Provider Jose Eason [phone] Encounters Encounter Location Date Provider Diagnosis [facility] (PODIATRY) [address] [place] [address] [place] [address] 08/18/2024 Jose Nixon Plan Of Treatment No Information Progress Notes * Luz Maria SCALESDOB:[birth year] (64 yo F)Acc No.[id number]:08/18/2024 Patient: Umm Luz Maria MARKS :1960 A ge:64 Y S ex:Female Address:[address] [place] [phone] * true * Date: Generated for Printi ng/Faxing/eTransmitting on: 0 03/17/2025 11:55 AM EDT
--- OUTSIDE RECORDS SUMMARY | 2025-03-10 05:00 | XMS_ITS ---
Author Organization [facility] es Address [address] [place] [address] Care Team Providers Care Maxillofacial Prosthodontist Name Role Phone Loc Stewart Primary Care Provider [phone] Rudy Bah Unavailable [phone] Dr Giovanni Mejia Unavailable Unavailable REASON FOR VISIT [facility] Encounters Encounter Location Date Provider Diagnosis [facility] [address] [place] [address] 03/10/2025 Loc Stewart Plan Of Treatment Next Appt Details Provider Name:Justin albarran, 03/18/2025 09:30:00 AM, [address], [place], [address], Provider Name:Loc Stewart , 03/26/2025 08:15:00 AM, [address], [place], [address], Provider Name:Justin albarran, 05/17/2025 02:00:00 PM, [address] [place], [address], Progress Notes * JAGDISH SCALESDOB:[birth year] (64 yo F)Acc No.[id number]:03/10/2025 F/U - Patient Patient: JAGDISH CHEEMA Provider: Jessa Stewart LPC :1960 A ge:64 Y S ex:Female Date:03/10/2025 Address[address], [place] Subjective: * Chief Complaints: * 1 . Bh fu. Objective: Therapeutic Interventions: Assessment: Plan: * Images: Care Plan Details* * Electronic signature of Jurgen Stewart LPC on 03/17/2025 at 11:55 AM EDT Sign off status: Pending * Provider: Jessa Stewart LPC, Date: 03/10/2025 Generated for Camilo azar/Marlin/Essencesmitting on: 03/17/2025 11:55 AM EDT
--- OUTSIDE RECORDS SUMMARY | 2025-03-17 11:55 | XMS_ITS | Patient Health Record ---
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) Active confirmed Problem 96613998 Pain due to internal orthopedic prosthetic devices, implants and grafts, initial encounter (T84.84XA) Active confirmed Problem Right foot pain (M79.671) Active confirmed Problem 606905755 Hallux rigidus o f right foot (M20.21) Active confirmed Problem [id number] Paronychia of toe of right foot (L03.031) Active confirmed Vital Signs Heart Rate 72 /min 04/14/2024 Temperature 97.2 degrees Fahrenheit 04/14/2024 Respiratory Rate 16 /min 04/14/2024 Height 65 in 04/14/2024 Weight 130 lbs 04/14/2024 BMI 21.63 kg/m2 04/14/2024 Encounters Encounter Location Date Provider Diagnosis [facility] [address] [place] [address] 05/25/2024 Jose Tameznadia [facility] [address] [place] [address] 08/18/2024 Jose Nixon [facility] [address] [place] [address] 04/14/2024 Jose Nixon Hallux rigidus of right [...] 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 She has had recurrent pinching pain periodically [...] pain (ICD-10 - M79.671) Plan Of Treatment Pending Test Test Name Order Date CT Foot RT w/o contrast * (Optional 3D R endering) 04/14/2024 XR foot RT min 3V 06/27/2023 Insurance Providers Payer Name Payer Address Payer Phone Subscriber Number Group Number Insured Name Patient Relationship to Insured Coverage Start Date Coverage End Date [facility] [address] [place] [phone] [id number] Luz Maria Diamond Self - patient is the insured 9 Medical (General) History Medical History History ICD Code migraine hypercholesterol GERD Surgical History Surgery Date(Month/Year) rotator tear 2018 carpal tunnel 2019 Right foot 1st MTP fusion 06/06/23
--- OUTSIDE RECORDS SUMMARY | 2025-03-17 11:55 | XMS_ITS | Encounter Summary ---
Author Organization [facility] Address [address] [place] [address] Care Team Providers Care Freight Solicitor Name Role Phone Compa Mary MD Primary Care Provider [phone] Encounter Details Date Type Department Care Team (Late st Contact Info) Description 03/25/2023 Orders Only [facility] [address] [place] [address] Michaela Damon MA [address] [place] [address] Social History Tobacco Use Types Packs/Day Years Used Date Smoking Tobacco: Never Assessed PHQ-2 Answer Date Recorded Patient Health Questionnaire-2 Score 0 03/27/2023 Comments Unknown Sex and Gender Information Value Date Recorded Sex Assigned at Not on file Legal Sex Female 7:18 PM EDT Gender Identity Not on file Sexual Orientation Not on file documented as of this encounter Functional Status * Over the past 2 weeks, how often have you been bothered by any of the following problems? Question Answer Date of Assessment Author Little interest or pleasure in doing things Not at all 03/27/2023 1:17 PM EDT Michaela Damon MA Feeling down, depressed, or hopeless Not at all 03/27/2023 1:17 PM EDT Michaela Damon MA Patient Health Questionnaire -2 Score 0 03/27/2023 1:17 PM EDT Michaela Damon MA documented as of this encounter Plan of Treatment Not on file documented as of this encounter Procedures Procedure Name Priority Date/Time Associated Diagnosis Comments PAP SMEAR Routine 06/30/2020 12:00 AM EDT documented in this encounter Results * Pap Smear (06/30/2020 12:00 AM EDT) Swab Cervical swab / Unknown us Historical Provider LAB CYTOLOGY ORDERABLES F inal Result [facility] documented in this encounter Visit Diagnoses Not on filedocumented in this encounter Care Teams Freight Solicitor Relationship Specialty Start Date End Date Compa Mary MD [address] [place] [address] PCP - General Internal Medicine 03/27/23 documented as of this encounter
--- OUTSIDE RECORDS SUMMARY | 2025-03-17 11:55 | XMS_ITS | Patient Health Record ---
Author Organization [facility] Address [address] [facility] [place] [address] Care Team Providers Care Financial Sales Manager Name Role Phone Terry Loc Primary Care Provider [phone] Rudy Bah Unavailable [phone] Dr Giovanni Mejia Unavailable Unavailable Justin Burden Unavailable [phone] Allergies No Known Allergies Results Component Value Reference Range Notes MM screening mammo BI w/CAD Reviewed date:12/30/2024 01:10:42 PM Interpretation: Performing Lab: Notes/Report: [facility] [address] [place] [address] Mammography Report Signed Patient: Jagdish Scales MR#: [id number] : 1960 Acct:[id number] Age/Sex: 64 / F Adm Date: 12/24/24 Loc: [place] Room: Type: [facility] Attending Dr: Justin Burden DO Ordering Provider: Justin Burden DO Date of Service: 12/24/24 Procedure(s): MM screening mammo BI w/CAD Accession Number(s): ([id number]) MM/MM screening mammo BI w/CAD: Encounter for screening mammogram for breast cancer Copies to: DO Giovanni Moulton DO CLINICAL DATA: Screening for malignancy. SCREENING MAMMOGRAM - FULL FIELD DIGITAL WITH TOMOSYNTHESIS AND CAD COMPARISON:Dating back to 2016 Tomosynthesis craniocaudal and mediolateral oblique views of both breasts were obtained using low- dose digital technique. This examination was reviewed with the aid of CAD. The breast tissue is almost entirely fatty. There are no dominant masses, typically malignant calcifications or architectural distortion. There has been no significant interval change. MM/MM screening mammo BI w/CAD IMPRESSION: NO MAMMOGRAPHIC EVIDENCE OF MALIGNANCY. ROUTINE FOLLOW-UP IS RECOMMENDED IN ONE YEAR. RESULT CODE: 1 Negative DENSITY CODE: 1 (<25% glandular) The breasts are almost entirely fatty. FOLLOW UP: 1YR The false-negative rate of mammography is approximately 10-percent. Management of a palpable abnormality must be based on clinical grounds. Patient was entered into a reminder system with a target due date for the next mammogram. Impression dictated by: Mt Miguel M.D.12/29/2024 2:41 PM Dictation Location: [facility] Dictated By: Mt Miguel MD 12/29/24 1416 Signed By: <Electronically signed by Mt Miguel MD in OV> 12/29/24 1441 Reason For Referral Reason 07/28 SCHEDULED co unseling referral from Giovanni Mejia w/dx of anxiety Diagnosis 1 Encounter for screen ing examination for mental health and behavioral disorders (Z13.30) Referral Organization [facility] Referring Provider First Name Giovanni Referring Provider Last Name Roberto Referring Provider Speciality Sport Medi [employer]me Referred Organization [facility] Referred Address [address], [place],[address], Referred Provider Specialty Talk Ther apy Referral Priority Routine Medications Medication SIG (Take, Route, Frequency, Duration) Notes Start Date End Date Status rOPINIRole HCl 1 MG Oral for 90 Days Active Propranolol HCl ER 60 MG Oral for 90 Days Active Atorvastatin Calcium 10 MG Oral for 90 Days Active Omeprazole 40 MG Oral for 90 Days Active FLUoxetine HCl 20 MG Oral for 90 Days Active traMADol HCl 50 MG Oral for 15 Days Active Social History Tobacco Use: Social History Observation Description Date Details (start date - stop date) Never Smoker NA - NA Sexual Hx: Question Answer Notes Had sex in the last 12 months (vaginal, oral, or anal)? No Have you ever had an STD? No AUDIT-C (Standard) Question Answer Notes Did you have a drink containing alcohol in the p ast year? No Points 0 Interpretation Negative Tobacco Control (Standard) Question Answer Notes Tobacco use: Nonsmoker Additional Findings: Tobacco non-user Current no nsmoker Problems Problem Type SNOMED Code ICD Code Onset Dates Problem Status W/U Status Risk Notes Problem Posttraumatic stress disorder (90459949) PTSD (post-traum atic stress disorder) (F43.10) Active confirmed Vital Signs Heart Rate 78 /min 02/12/2025 Temperature 97.6 degrees Fahrenheit 02/12/2025 Respiratory Rate 18 /min 02/12/2025 Oximetry 96 % 02/12/2025 Blood pressure diastolic 64 mm Hg 02/12/2025 Height 65 in 02/12/2025 Blood pressure systolic 106 mm Hg 02/12/2025 Weight 132.2 lbs 02/12/2025 BMI 22 kg/m2 02/12/2025 Encounters Encounter Location Date Provider Diagnosis [facility] [address] [place] [address] 09/28/2024 [facility] [address] [place] [address] 10/27/2024 [facility] [address] [place] [address] 11/26/2024 [facility] [address] [place] [address] 12/16/2024 [facility] [address] [place] [address] 12/30/2024 [facility] [address] [place] [address] 11/20/2024 Justin Burden Low back pain, unspecified M54.50 ; Pain in thoracic spine M54.6 and Encounter for screening mammogram for breast cancer Z12.31 [facility] [address] [place] [address] 11/30/2024 Justin Burden Segmental and somati c dysfunction of cervical region M99.01 ; Segmental and somatic dysfunction of thoracic region M99.02 ; Segmental and somatic dysfunction of abdomen and other regions M99.09 ; Segmental and somatic dysfunction of lumbar region M99.03 ; Segmental and somatic dysfunction of pelvic region M99.05 ; Segmental and somatic dysfunction of upper extremity M99.07 ; Segmental and somatic dysfunction of lower extremity M99.06 and Segmental and somatic dysfunction of head region M99.00 [facility] [address] [place] [address] 12/16/2024 Justin Burden Somatic dysfunction of cervical region M99.01 ; Somatic dysfunction of thoracic region M99.02 ; Somatic dysfunction of rib region M99.08 ; Somatic dysfunction of lumbar region M99.03 ; Somatic dysfunction of both upper extremities M99.07 and Cranial somatic dysfunction M99.00 [facility] [address] [place] [address] 02/12/2025 Justin Burden Somatic dysfunction of cervical region M99.01 ; Somatic dysfunction of thoracic region M99.02 ; Somatic dysfunction of rib region M99.08 ; Somatic dysfunction of lumbar region M99.03 ; Somatic dysfunction of both upper extremities M99.07 and Cranial somatic dysfunction M99.00 [facility] [address] [place] [address] 08/12/2024 Loc Stewart PTSD (post-traumatic stress disorder) F43.10 [facility] [address] [place] [address] 10/27/2024 Loc Stewart PTSD (post-traumatic stress disorder) F43.10 [facility] [address] [place] [address] 02/05/2025 Loc Stewart PTSD (post-traumatic stress disorder) F43.10 [facility] [address] [place] [address] 12/16/2024 Loc Stewart PTSD (post-traumatic stress disorder) F43.10 [facility] [address] [place] [address] 11/26/2024 Loc Stewart PTSD (post-traumatic stress disorder) F43.10 [facility] [address] [place] [address] 11/20/2024 Rudy Bah Assessments Encounter Date Diagnosis (ICD Code) Assessment Notes Treatment Notes Treatment Clinical Notes Section Notes 08/12/2024 PTSD (post-traumatic stress disorder) (ICD-10 - F43.10) 10/27/2024 PTSD (post-traumatic stress disorder) (ICD-10 - F43.10) 11/20/2024 Pain in thoracic spine (ICD-10 - M54.6) 11/30/2024 Segmental and somatic dysfunction of cervical region (ICD-10 - M99.01) MFR to bilateral paraspinal musculature 11/20/2024 Low back pain, unspecified (ICD-10 - M54.50) Patient with chronic intermittent low back 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 She had received massages in the past which did seem to help with this. We discussed OMT and patient wishes to proceed with this at this time. Other conditions appear to be well-controlled at this time we will set up visit for chronic care as well. 11/26/2024 PTSD (post-traumatic stress disorder) (ICD-10 - F43.10) 12/16/2024 PTSD (post-traumatic stress disorder) (ICD-10 - F43.10) 12/16/2024 Somatic dysfunction of cervical region (ICD-10 - M99.01) MFR to bilateral paraspinal cervical musculature 02/05/2025 PTSD (post-traumatic stress disorder) (ICD-10 - F43.10) 02/12/2025 Somatic dysfunction of cervical region (ICD-10 - M99.01) MFR to bilateral paraspinal cervical musculature 02/12/2025 Somatic dysfunction of thoracic region (ICD-10 - M99.02) MFR to bilateral erector spinae, MFR to bilateral trapezius 12/16/2024 Somatic dysfunction of thoracic region (ICD-10 - M99.02) MFR to bilateral erector spinae, MFR to bilateral trapezius 11/30/2024 Segmental and somatic dysfunction of thoracic region (ICD-10 - M99.02) MFR to trapezius, counterstrain to trapezius, MFR to bilateral erector spinae, BLT to bilateral scapula 11/20/2024 Encounter for screening mammogram for breast cancer (ICD-10 - Z12.31) 12/16/2024 Somatic dysfunction of rib region (ICD-10 - M99.08) Rib raising 11/30/2024 Segmental and somatic dysfunction of abdomen and other regions (ICD-10 - M99.09) Rib raising 02/12/2025 Somatic dysfunction of rib region (ICD-10 - M99.08) Rib raising 02/12/2025 Somatic dysfunction of lumbar region (ICD-10 - M99.03) MFR to bilateral multifidus, MFR to general lumbar region 12/16/2024 Somatic dysfunction of lumbar region (ICD-10 - M99.03) MFR to bilateral multifidus, MFR to general lumbar region 11/30/2024 Segmental and somatic dysfunction of lumbar region (ICD-10 - M99.03) MFR to general lumbar region, MFR to bilateral multifidus 11/30/2024 Segmental and somatic dysfunction of pelvic region (ICD-10 - M99.05) Muscle energy to R psoas corrects innominate dysfunction, 12/16/2024 Somatic dysfunction of both upper extremities (ICD-10 - M99.07) MFR to bilateral teres musculature, BLT to bilateral periscapular musculature 02/12/2025 Somatic dysfunction of both upper extremities (ICD-10 - M99.07) MFR to bilateral teres musculature, BLT to bilateral periscapular musculature 02/12/2025 Cranial somatic dysfunction (ICD-10 - M99.00) Suboccipital release Patient tolerated procedure well. Patient was informed of potential for treatment flare and at home treatment for same. Patient was also advised to increase water intake by about 2 glasses/day over the next 2 days. 12/16/2024 Cranial somatic dysfunction (ICD-10 - M99.00) Suboccipital release Patient tolerated procedure well. Patient was informed of potential for treatment flare and at home treatment for same. Patient was also advised to increase water intake by about 2 glasses/day over the next 2 days. 11/30/2024 Segmental and somatic dysfunction of upper extremity (ICD-10 - M99.07) MFR to teres musculature and pec musculature 11/30/2024 Segmental and somatic dysfunction of lower extremity (ICD-10 - M99.06) MFR to bilateral gastrocnemius and hamstring, muscle energy to bilateral TFL, muscle energy to adductors 11/30/2024 Segmental and somatic dysfunction of head region (ICD-10 - M99.00) Sacral rocking with improved sacral CRI Patient tolerated procedure well. Patient was informed of potential for treatment flare and home treatment of same. Patient was also informed to increase water intake by about 2 glasses/day over the next 48 hours. 02/12/2025 Other Body Mass Index : Care Instructions material was printed Plan Of Treatment Next Appt Details Provider Name:Justin albarran, 03/18/2025 09:30:00 AM, [address], [place], [address], Provider Name:Loc Stewart , 03/26/2025 08:15:00 AM, [address] [place], [address], Provider Name:Justin albarran, 05/17/2025 02:00:00 PM, [place], [address], Insurance Providers Payer Name Payer Address Payer Phone Subscriber Number Group Number Insured Name Patient Relationship to Insured Coverage Start Date Coverage End Date [employer] Primary [address] [place] [address] [id number] JAGDISH SCALES Self - patient is the insured 4 DENTAL BCBS FEP [address] [place] [address] [id number] JAGDISH SCALES Self - patient is the insured 4 Medical (General) History Medical History History ICD Code migraine headache restless leg syndrome bleeding ulcers Surgical History Surgery Date(Month/Year) carpal tunnel release toe surgery R rotator cuff repair Hospitalization History Reason Date(Month/Year) see surgical
--- OUTSIDE RECORDS SUMMARY | 2025-03-17 11:55 | XMS_ITS | Encounter Summary ---
Author Organization [facility] Address [address] [place] [address] Care Team Providers Care Fire Officer Name Role Phone Compa Mary MD Primary Care Provider [phone] Encounter Details Date Type Department Care Team (Late st Contact Info) Description 02/04/2025 Abstract [facility] [address] [place] [address] DolYanick nicholson R, DPM FACFAS [address] [facility] [place] [address] Social History Tobacco Use Types Packs/Day Years Used Date Smoking Tobacco: Never Smokeless Tobacco: Never Alcohol Use Standard Drinks/Week Comments Not Currently 0 (1 standard drink = 0.6 oz pur e alcohol) PHQ-2 Answer Date Recorded Patient Health Questionnaire-2 Score 0 03/27/2023 Comments No Sex and Gender Information Value Date Recorded Sex Assigned at Not on file Legal Sex Female 7:18 PM EDT Gender Identity Not on file Sexual Orientation Not on file documented as of this encounter Plan of Treatment Not on file documented as of this encounter Visit Diagnoses Not on filedocumented in this encounter Care Teams Fire Officer Relationship Specialty Start Date End Date Compa Mary MD [address] [place] [address] PCP - General Internal Medicine 03/27/23 documented as of this encounter
--- OUTSIDE RECORDS SUMMARY | 2025-03-17 11:56 | XMS_ITS | Encounter Summary ---
Author Organization [facility] Address [address] [place] [address] Care Team Providers Care Resident Intern Name Role Phone Compa Mary MD Primary Care Provider [phone] Encounter Details Date Type Department Care Team (Late st Contact Info) Description 02/03/2025 Orders Only [facility] [address] [place] [address] Stew Haywood, BEAUTY CONSULTANT [address] [place] [address] Rotator cuff tear arthropathy, left; Internal derangement of left shoulder Social History Tobacco Use Types Packs/Day Years [...] Procedure Name Priority Date/Time Associated Diagnosis Comments MR SHOULDER LEFT WO IV CONTRAST Routine 02/03/2025 10:05 AM EDT Rotator cuff tear arthropathy, left Internal derangement of left shoulder documented in this encounter Results * MR shoulder left wo IV contrast (02/03/2025 10:05 AM EDT) Stew Haywood BEAUTY CONSULTANT IMG MRI PROCEDURES Final Result documented in this encounter Visit Diagnoses Diagnosis Rotator cuff tear arthropathy, left Internal derangement of left shoulder documented in this encounter Care Teams Resident Intern Relationship Specialty Start Date End Date Compa Mary MD [address] [place] [address] PCP - General Internal Medicine 03/27/23 documented as of this encounter
--- OUTSIDE RECORDS SUMMARY | 2025-03-17 11:56 | XMS_ITS | Clinical Summary ---
Author Organization [facility] Address [address] [place] [address] Care Team Providers Care Environment Artist Name Role Phone Giovanni Mejia DO Primary Care Provider Social History Tobacco Use Types Packs/Day Years Used Date Smoking Tobacco: Never Assessed Comments Unknown Sex and Gender Information Value Date Recorded Sex Assigned at Not on file Legal Sex Female 1:31 PM EDT Gender Identity Not on file Sexual Orientation Not on file Plan of Treatment Health Maintenance Due Date Last Done Comments Depression Screen 1974 HIV screen 1977 Hepatitis C screen 1980 DTaP/Tdap/Td vaccine (1 - Tdap) 1981 Pap smear 1983 Cervical cancer screen 1992 HPV (without or with Pap) 1992 Lipids 2002 Colonoscopy 2007 Colorectal Cancer Screen 2007 FIT/FOBT: Average risk 2007 Fecal-DNA (Cologuard): Average risk 2007 Sigmoidoscopy/CT colonography 2007 Pneumococcal 50+ years Vaccine (1 of 1 - PCV) 2012 Shingles vaccine (1 of 2) 2012 COVID-19 Vaccine ( season) 2024 08/15/2023, 09/28/2022, 01/13/2021, Additional history exists Breast cancer screen 01/10/2025 01/10/2023, 06/30/2020, 02/09/2019 Flu vaccine (Season Ended) 04/30/202508/15, 09/28/2022, 10/04/2021, Additional history exists Respiratory Syncytial Virus (RSV) or age 60 yrs+ (1 - 1-dose 75+ series) 2037 Hepatitis A vaccine Aged Out No longe r eligible based on patient's age to complete this topic Hepatitis B vaccine Aged Out No longe r eligible based on patient's age to complete this topic Hib vaccine Aged Out No longer eligi ble based on patient's age to complete this topic Meningococcal (ACWY) vaccine Aged Out No longer eligible based on patient's age to complete this topic Meningococcal B vaccine Aged Out No l onger eligible based on patient's age to complete this topic Polio vaccine Aged Out No longer elig ible based on patient's age to complete this topic Care Teams Environment Artist Relationship Specialty Start Date End Date Giovanni Mejia DO [address] [place] [address];[address] [facility] [address] [place] [address] PCP - General Family Medicine 05/01/24
--- OUTSIDE RECORDS SUMMARY | 2025-03-17 11:56 | XMS_ITS | Clinical Summary ---
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 Role Phone Compa Mary MD Primary Care Provider [phone] Allergies No known active allergies Medications atorvastatin (Lipitor) 10 MG tablet Take 10 mg by mouth Daily Active FLUoxetine (PROzac) 20 MG capsule Take 20 mg by mouth Daily 02/22/2023 Active Multiple Vitamin (Multi Vitamin) tablet 1 (one) time each day at the same time Active omeprazole (PriLOSEC) [address] capsule 1 capsule 1 (one) time each day at the same time Active propranolol LA (Inderal LA) 60 MG 24 hr capsule 1 capsule 1 (one) time each day at the same time Active Ultram 50 MG tablet Take 50 mg by mouth every 6 (six) hours Active VITAMIN D PO Active biotin 1 MG capsule Active rOPINIRole (Requip) 1 MG tablet 12/21/2024 Active Active Problems Problem Noted Date Diagnosed Date Pseudarthrosis after fusion or arthrodesis 02/10 Posttraumatic stress disorder 02/10/2025 Pain due to internal orthope dic prosthetic devices, implants and grafts, initial encounter 02/10/2025 Arthritis of left acromioclavicular joint 2024 Internal derangement of left shoulder 02/10/2025 Encounters Date Type Department Care Team Description 03/02/2025 1:40 PM EDT Office Visit [facility] [address] [place] [phone] Dolce, Yanick R, DPM FACFAS Abscess of second toe of right foot (Primary Dx); Ingrown nail of second toe of right foot; Ingrown nail of third toe of right foot 03/02/2025 Bamboo flowsheet [facility] [address] [place] [address] Dolce, Yanick R, DPM FACFAS 02/12/2025 9:00 AM EDT Office Visit [facility] [address] [place] [address] Stew Haywood, ANGLE BENDER Nontraumatic tear of left rotator cuff, unspecified tear extent (Primary Dx); Chronic left shoulder pain 02/12/2025 Bamboo flowsheet [facility] [address] [phone] Stew Haywood, ANGLE BENDER 02/12/2025 Travel 02/04/2025 2:10 PM EDT Office Visit [facility] [address] [place] [phone] Dolce, Yanick R, DPM FACFAS Ingrown nail of third toe of right foot (Primary Dx); Ingrown nail of second toe of right foot; Abscess of second toe of right foot; Abscess of third toe, right; Pain in left toe(s) 02/04/2025 Abstract [facility] [address] [place] [phone] Dolce, Yanick R, DPM FACFAS 02/04/2025 Bamboo flowsheet [facility] [address] [place] [address] Dolce, Yanick R, DPM FACFAS 02/03/2025 Orders Only [facility] [address] [place] [phone] Stew Haywood, ANGLE BENDER Rotator cuff tear arthropathy, left; Internal derangement of left shoulder 01/11/2025 11:20 AM EDT Office Visit [facility] [address] [place], [place] [phone] Dolce, Yanick R, DPM FACFAS Abscess of third toe, right (Primary Dx); Onychocryptosis 01/11/2025 Bamboo flowsheet [facility] [address] [place], [place] [phone] Dolce, Yanick R, DPM FACFAS 01/01/2025 8:30 AM EDT Ancillary Procedure [facility] [address] [place], [place] [phone] 01/01/2025 8:30 AM EDT Office Visit [facility] [address] [place], [place] [phone] Stew Haywood, AKASH Rotator cuff tear arthropathy, left (Primary Dx); Acute pain of left shoulder; Internal derangement of left shoulder 01/01/2025 Bamboo flowsheet [facility] [address] [place] [address] Stew Haywood NP 01/01/2025 Travel from Last 3 Months Family History Medical History Relation Name Comments Breast cancer Maternal Grandmother Colon cancer Mother Relation Name Status Comments Maternal Grandmother Mother Social History Tobacco Use Types Packs/Day Years Used Date Smoking Tobacco: Never Smokeless Tobacco: Never Tobacco Cessation:Counseling Given: Yes Alcohol Use Standard Drinks/Week Comments Not Currently 0 (1 standard drink = 0.6 oz pur e alcohol) PHQ-2 Answer Date Recorded Patient Health Questionnaire-2 Score 0 03/27/2023 Comments No Sex and Gender Information Value Date Recorded Sex Assigned at Not on file Legal Sex Female 7:18 PM EDT Gender Identity Not on file Sexual Orientation Not on file Last Filed Vital Signs Vital Sign Reading Time Taken Comments Blood Pressure 104/66 03/02/2025 1:59 PM EDT Pulse 70 03/02/2025 1:59 PM EDT Temperature - - Respiratory Rate - - Oxygen Saturation - - Inhaled Oxygen Concentration - - Weight 60.8 kg (134 lb) 03/02/2025 1:59 PM EDT Height 160 cm (5' 3 ) 03/02/2025 1:59 PM EDT Body Mass Index 23.74 03/02/2025 1:59 PM EDT Plan of Treatment Health Maintenance Due Date Last Done Comments CT Colonography 1960 FIT-DNA 1960 FIT 1960 FOBT 1960 Sigmoidoscopy 1960 Pap Smear 06/30/2023 06/30/2020 Mammogram 01/11/2024 01/10/2023, 09/2019, 02/09/2019 Influenza Vaccine (Season Ended) 2025 08/15/2023, 09/28/2022, 10/04/2021, Additional history exists Cervical Cancer Screening 06/30/2025 HPV/Cotest 06/30/2025 06/30/2020, 05/31, 01/09/2019 Colonoscopy 12/31/2032 Colorectal Cancer Screening 12/31/2032 Procedures Procedure Name Priority Date/Time Associated Diagnosis Comments MR SHOULDER LEFT WO IV CONTRAST Routine 02/03/2025 10:05 AM EDT Rotator cuff tear arthropathy, left Internal derangement of left shoulder XR SHOULDER 2+ VIEWS LEFT Routine 01/01/2025 8:26 AM EDT Acute pain of left shoulder BI MAMMOGRAM SCREENING TOMOSYNTHESIS BILATERAL Routine 01/10/2023 Encounter for screening mammogram for malignant neoplasm of breast THINPREP TIS PAP REFLEX HPV MRNA E6/E7 (56116) Routine 06/30/2020 PAP SMEAR Routine 06/30/2020 12:00 AM EDT from Last 3 Months or Most Recently Relevant to Health Maintenance Results * MR shoulder left wo IV contrast (02/03/2025 10:05 AM EDT) us Stew Haywood NP IM MRI PROCEDURES Final Result * XR shoulder 2+ views left (01/01/2025 8:26 AM EDT) Anatomical Region Laterality Modality Upper Extremities, Shoulder Left Radi ographic Imaging Narrative 01/01/2025 8:57 AM EDT Imaging Result: 01/01/2025: Multiple views of left shoulder show humeral head to be well centered in the glenoid fossa without evidence of fracture or dislocation. There is decreased glenohumeral joint space with mild subchondral sclerosis. The acromioclavicular joint was noted to have decreased joint space. Lung whalen visualized on today's x-ray showed excellent lung markings. Impression no acute bony process left shoulder. Stew Haywood GREY ROLL WORKER-DECONTAMINATOR Stew Haywood ANGLE BENDER IMG XR PROCEDURES Final Result * Bilateral screening mammogram with tomosynthesis (01/10/2023) Anatomical Region Laterality Modality Breast Bilateral Mammography Impressions 01/10/2023 12:00 AM EDT BIRADS 1 : NEGATIVE, NORMAL INTERVAL FOLLOW UP FOLLOW-UP: 12 months DENSITY: Scattered MAMMOGRAPHY IS VERY IMPORTANT TO YOUR HEALTH. THE CURRENT [employer] GUIDELINES RECOMMENDS ANNUAL MAMMOGRAPHY BEGINNING AT AGE 42 THIS FACILITY USES A REMINDER SYSTEM TO ENSURE ALL PATIENTS RECEIVE REMINDER NOTIFICATIONS AT THE APPROPRIATE TIME BASED ON THE RECOMMENDATIONS OF THIS EXAM. Board Certified Radiologist. Accredited by the ACR and FDA. Report reported and signed by Raymond Tuttle on 01/10/2023 1240 Narrative 01/10/2023 12:00 AM EDT PERFORMED AT [facility] LOCATION:[place] [address] CLINICAL HISTORY: Screening Mammogram COMPARISON: TECHNIQUE: 2D and 3D mammogram imaging of both breasts was performed. RESULT: DENSITY: There are scattered areas of fibroglandular density. There is no suspicious mass, asymmetry, architectural distortion, or calcification. No significant change since the prior mammograms. Procedure Note CONVERSION, GENERIC - 04/05/2023 PERFORMED AT [facility] LOCATION:[place] [address] CLINICAL HISTORY: Screening Mammogram COMPARISON: TECHNIQUE: 2D and 3D mammogram imaging of both breasts was performed. RESULT: DENSITY: There are scattered areas of fibroglandular density. There is no suspicious mass, asymmetry, architectural distortion, orcalcification. No significant change since the prior mammograms. IMPRESSION: BIRADS 1 : NEGATIVE, NORMAL INTERVAL FOLLOW UP FOLLOW-UP: 12 months DENSITY: Scattered MAMMOGRAPHY IS VERY IMPORTANT TO YOUR HEALTH. THE CURRENT [employer] GUIDELINES RECOMMENDS ANNUALMAMMOGRAPHY BEGINNING AT AGE 40 THIS FACILITY USES A REMINDER SYSTEM TO ENSURE ALL PATIENTS RECEIVEREMINDER NOTIFICATIONS AT THE APPROPRIATE TIME BASED ON THE RECOMMENDATIONS OF THIS EXAM. Board Certified Radiologist. Accredited by the ACR and FDA. Report reported and signed by Raymond Parag on 01/10/2023 1240 Mari Huitron MD IMG BI PROCEDURES Final Result * THINPREP TIS PAP REFLEX HPV MRNA E6/E7 (30784) (06/30/2020) CLINICAL INFORMATION: None given [facility] LMP: None given [facility] PAP: None given [facility] BX: None given [facility] SOURCE: None given [facility] STATEMENT OF ADEQUACY: SEE COMMENT [facility] Comment: Satisfactory for evaluation. Endocervical/transformation zone component present. INTERPRETATION /RESULT: Negative for intraepithelial lesion or malignancy. [facility] COMMENT: This Pap test has been evaluated with computer assisted technology. [facility] CYTOTECHNOLOGI ST: SEE COMMENT [facility] Comment: [facility], CT(ASCP) CT screening location: [facility], [address] [address]. COMMENT SEE COMMENT [facility] Comment: EXPLANATORY NOTE: The Pap is a screening test for cervical cancer. It is not a diagnostic test and is subject to false negative and false positive results. It is most reliable when a satisfactory sample, regularly obtained, is submitted with relevant clinical findings and history, and when the Pap result is evaluated along with historic and current clinical information. 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
--- NOTE | 2025-03-17 12:05 | XR_ITS ---
The [address] [address] Patient Name: JAGDISH SCALES MRN: [id number] date: 1960 Sex: F Assigned Patient Location: [facility] Current Patient Location: [facility] Accession/Order Number: [id number] Exam Date: 03/17/2025 12:20 Report Date: 03/17/2025 12:24 At the request of: ANASTASIA BERMUDEZ DPMary Procedure: XR foot RT min 3V RIGHT FOOT - 3 views COMPARISON: 04/14/2024 CLINICAL DATA: Right foot pain at the plantar aspect of the first toe. Previous fusion Weightbearing AP, lateral and oblique views were obtained. A marker was placed at the site of patient's symptoms. There is redemonstration of a volar plate and multiple screws fusing the first metatarsal phalangeal joint, similar to the prior. There is further bony fusion at the joint since the prior. There is no acute fracture or dislocation. There are no significant soft tissue abnormalities. XR/XR foot RT min 3V IMPRESSION: POSTOPERATIVE CHANGES OF THE FIRST TOE. NO ACUTE BONY FINDINGS. Impression dictated by: Hillary Spring M.D. 03/17/2025 12:24 PM Dictation Location: [place] [address] Electronically authenticated by: [id number] Y Date: 03/17/2025 12:24
== END 2025-03-17 11:53 | disposition home or self-care (01) ==
LOC: RAD 11:53
PROVIDERS: Visit Provider Podiatrist Foot & Ankle Surgery
DX: M79.671 Pain in right foot (principal); Z98.890 Other specified postprocedural states
CPT/HCPCS: 73630